=== PATIENT | male | born 1940 | race American Indian/Alaskan Native ===

== ENCOUNTER 2018-12-20 17:56 | Inpatient (IN) | payer MEDICARE ==
--- NOTE | 2018-12-20 18:34 | Emergency Department Report ---
ED Syncope HPI - General Stated Complaint: WEAKNESS/DIZZY Time Seen by Provider: 12/20/18 18:14 Source: patient, family Exam Limitations: no limitations - History of Present Illness Initial Comments: 78-year-old male with a past medical history of anemia and required blood transfusion recently, hypertension, chronic right leg ulcer currently with wound care on Friday and Friday, and diet controlled diabetes presents to the hospital with complaints no deficit and syncopal episode. Patient apparently had just finished eating. He was talking to his daughter who was at the bedside. She states that his left side of his face looked likely drooped, patient was unable to speak, and he became unresponsive for about 1 minute. No generalized shaking or seizure activity reported. Patient was diaphoretic during episode. Patient became responsive after 1 minute. He is currently at his baseline. He denies headache, chest pain, shortness of breath, abdominal pain, nausea, vomiting, melena, or hematochezia. Patient recently had 3 units of blood transfused at [facility] on Dec 15 after having outpatient labs showing anemia. He is currently on iron tablets times a day and addition to his other medication. Glucose in 165. Pt takes an asa 81mg daily and had a dose today - Related Data Allergies/Adverse Reactions: Allergies No Known Allergies Allergy (Unverified 12/20/18 19:22) Home Medications: Ambulatory Orders Ferrous Sulfate 324 MG 65 mg PO TID 12/20/18 Finasteride [Proscar] 5 mg PO DAILY 12/20/18 Metoprolol SUCCINATE ER TAB 50 mg PO DAILY 12/20/18 amLODIPine [Norvasc] 10 mg PO DAILY 12/20/18 ED Review of Systems ROS: Stated complaint: WEAKNESS/DIZZY Other details as noted in HPI Comment: All other systems reviewed and negative ED Past Medical Hx - Past Medical History Hx Hypertension: Yes Hx Diabetes: Yes (diet controlled) Additional medical history: Anemia, chronic right leg - Medications Home Medications: Home Medications Medication Instructions Recorded Confirmed Last Taken Type Ferrous Sulfate 324 MG 65 mg PO TID 12/20/18 12/20/18 12/20/18 10:00 History Finasteride [Proscar] 5 mg PO DAILY 12/20/18 12/20/18 12/20/18 10:00 History Metoprolol SUCCINATE ER TAB 50 mg PO DAILY 12/20/18 12/20/18 12/19/18 History amLODIPine [Norvasc] 10 mg PO DAILY 12/20/18 12/20/18 12/20/18 10:00 History ED Physical Exam - General Limitations: No Limitations - Other Other exam information: General: No acute distress Head: Atraumatic Eyes: Normal appearance, Pupils equal and reactive to light, extraocular movements intact ENT: Normal oropharynx Neck: Normal appearance, no posterior or midline tenderness, no meningismus Chest: Clear to auscultation bilaterally, no wheezes, rales, or crackles CV: Regular rate and rhythm, systolic murmur Abdomen: soft, nontender, nondistended, no rebound or guarding rectal: guaic neg brown stool Back: Nontender Extremity: Right foot and lower leg is wrapped due to ulcer. daughter reports it has been improving with treatment. No calf tenderness or swelling on the left leg Neuro: Alert and oriented 3, speech clear, no gross motor or sensory deficit Skin: No rash, redness, warmth ED Course Vital Signs 12/20/18 12/20/18 12/20/18 18:14 18:15 18:17 Temperature 99.9 F H Pulse Rate 63 56 L Respiratory 18 Rate Blood Pressure 194/85 Blood Pressure [Left] O2 Sat by Pulse 99 98 Oximetry 12/20/18 12/20/18 12/20/18 18:35 18:39 18:45 Temperature Pulse Rate 59 L 63 57 L Respiratory 15 18 19 Rate Blood Pressure 203/83 Blood Pressure 181/79 180/77 [Left] O2 Sat by Pulse 100 100 100 Oximetry 12/20/18 12/20/18 19:01 19:31 Temperature Pulse Rate 58 L 54 L Respiratory 19 16 Rate Blood Pressure 194/85 181/79 Blood Pressure [Left] O2 Sat by Pulse 98 100 Oximetry - Consultations Consultation #1: 12/20/18 20:[address] parker cardiology, aggrees with asa, no heparin/lovenox a this time, consult ordered ED Medical Decision Making - Lab Data Result diagrams: 12/20/18 19:23 12/20/18 18:30 Lab Results 12/20/18 12/20/18 12/20/18 Range/Units 18:25 18:30 19:23 WBC 10.4 (4.5-11.0) K/mm3 RBC 3.31 L (3.65-5.03) M/mm3 Hgb 9.8 L (11.8-15.2) gm/dl Hct 29.7 L (35.5-45.6) % MCV 90 (84-94) fl MCH 30 (28-32) pg MCHC 33 (32-34) % RDW 19.5 H (13.2-15.2) % Plt Count 329 (140-440) K/mm3 Lymph % (Auto) Cooperative Education Coordinator [place] % (Auto) Cooperative Education Coordinator Eos % (Auto) Cooperative Education Coordinator Baso % (Auto) Cooperative Education Coordinator Lymph # Cooperative Education Coordinator [place] # Cooperative Education Coordinator Eos # Cooperative Education Coordinator Baso # Cooperative Education Coordinator Seg Neutrophils % Cooperative Education Coordinator Seg Neutrophils # Cooperative Education Coordinator PT (12.2-14.9) Sec. INR (0.87-1.13) APTT (24.2-36.6) Sec. Thrombin Time (15.1-19.6) Sec. Sodium 136 L (137-145) mmol/L Potassium 4.5 (3.6-5.0) mmol/L Chloride 99.1 (98-107) mmol/L Carbon Dioxide 22 (22-30) mmol/L Anion Gap 19 mmol/L BUN 30 H (9-20) mg/dL Creatinine 1.0 (0.8-1.5) mg/dL Estimated GFR > 60 ml/min BUN/Creatinine Ratio 30 % Glucose 154 H (75-100) mg/dL POC Glucose 164 H (70-105) Calcium 9.4 (8.4-10.2) mg/dL Total Bilirubin 1.00 (0.1-1.2) mg/dL AST 76 H (5-40) units/L ALT 66 H (7-56) units/L Alkaline Phosphatase 105 (35-129) units/L Total Creatine Kinase 1087 H (55-170) units/L CK-MB (CK-2) 20.4 H (0.0-4.0) ng/mL CK-MB (CK-2) Rel Index 1.8 (0-4) Troponin T 0.116 H* (0.00-0.029) ng/mL Total Protein 7.5 (6.3-8.2) g/dL Albumin 3.8 L (3.9-5) g/dL Albumin/Globulin Ratio 1.0 % Triglycerides 103 (2-149) mg/dL Cholesterol 141 (50-199) mg/dL LDL Cholesterol Direct 78 (50-130) mg/dL HDL Cholesterol 62 H (40-59) mg/dL Cholesterol/HDL Ratio 2.27 % 12/20/ Range/Units 19:23 WBC (4.5-11.0) K/mm3 RBC (3.65-5.03) M/mm3 Hgb (11.8-15.2) gm/dl Hct (35.5-45.6) % MCV (84-94) fl MCH (28-32) pg MCHC (32-34) % RDW (13.2-15.2) % Plt Count (140-440) K/mm3 Lymph % (Auto) [place] % (Auto) Eos % (Auto) Baso % (Auto) Lymph # [place] # Eos # Baso # Seg Neutrophils % Seg Neutrophils # PT 13.7 (12.2-14.9) Sec. INR 1.08 (0.87-1.13) APTT 27.7 (24.2-36.6) Sec. Thrombin Time 16.5 (15.1-19.6) Sec. Sodium (137-145) mmol/L Potassium (3.6-5.0) mmol/L Chloride (98-107) mmol/L Carbon Dioxide (22-30) mmol/L Anion Gap mmol/L BUN (9-20) mg/dL Creatinine (0.8-1.5) mg/dL Estimated GFR ml/min BUN/Creatinine Ratio % Glucose (75-100) mg/dL POC Glucose (70-105) Calcium (8.4-10.2) mg/dL Total Bilirubin (0.1-1.2) mg/dL AST (5-40) units/L ALT (7-56) units/L Alkaline Phosphatase (35-129) units/L Total Creatine Kinase (55-170) units/L CK-MB (CK-2) (0.0-4.0) ng/mL CK-MB (CK-2) Rel Index (0-4) Troponin T (0.00-0.029) ng/mL Total Protein (6.3-8.2) g/dL Albumin (3.9-5) g/dL Albumin/Globulin Ratio % Triglycerides (2-149) mg/dL Cholesterol (50-199) mg/dL LDL Cholesterol Direct (50-130) mg/dL HDL Cholesterol (40-59) mg/dL Cholesterol/HDL Ratio % - EKG Data -: EKG Interpreted by Ok EKG shows normal: sinus rhythm, axis (qrs -28), QRS complexes (qrsd 96), ST-T waves Rate: normal (60) - EKG Data When compared to previous EKG there are: no significant change - Radiology Data Radiology results: report reviewed ADDENDUM Addendum: Please note there is a typographic error in the impression. IMPRESSION: No acute infarction Signer Name: Velma Montgomery MD Signed: 12/20/2018 7:48 PM Workstation Name: [id number] Addendum Transcribed By: FALLON Addendum Dictated By: Velma Tay MD Addendum Electronically Authenticated By: Velma Tay MD Addendum Signed Date/Time: 12/20/181947 DD/ TD/TT: / Nonenhanced CT scan of the brain: INDICATION: Stroke symptoms. TECHNIQUE: Routine CT head without contrast. Sagittal and coronal reformatted images were obtained. All CT scans at this location are performed using CT dose reduction for ALARA by means of automated exposure control. COMPARISON: None. FINDINGS: BRAIN / INTRACRANIAL CONTENTS: No acute hemorrhage, mass effect, midline shift, hydrocephalus, or acute, large territorial infarct. Brainstem is normal. Volume loss is seen in the cerebellar vermis. In the cerebral hemispheres, periventricular low density areas are seen probably due to microvascular faint angiopathy. In addition, low density white matter lesions are seen which are also chronic. Subtle ischemic changes are seen in the right corpus stratum extending into right putamen. CRANIOCERVICAL JUNCTION: No significant abnormality. ORBITS: No significant abnormality of visualized orbits. SINUSES / MASTOIDS: No significant abnormality of the visualized paranasal sinuses or mastoid air cells. ADDITIONAL FINDINGS: None. IMPRESSION: . Infarction CHEST 1 VIEW 12/20/2018 7:47 PM INDICATION / CLINICAL INFORMATION: syncope. COMPARISON: None available. FINDINGS: SUPPORT DEVICES: None. HEART / MEDIASTINUM: The cardiac silhouette is at the upper limits of normal size. LUNGS / PLEURA: No significant pulmonary or pleural abnormality. No pneumothorax. ADDITIONAL FINDINGS: No significant additional findings. IMPRESSION: 1. No acute abnormality of the chest. 2. Nonspecific prominence of the cardiac silhouette. - Medical Decision Making pt with syncopal episode ? transient facial droop and aphasia preceding syncopal episode neuro consulted (see note) mild trop elevation, repeat pendgin, no chest pain or stemi, asa given after neg guaic test, cardiology consulted hospitalist to admit - Differential Diagnosis NH, arrhythmia, anemia, seizure, CVA Critical Care Time: No Critical care attestation.: If time is entered above; I have spent that time in minutes in the direct care of this critically ill patient, excluding procedure time. ED Disposition Clinical Impression: Syncope, Transient neurologic deficit, Elevated troponin, History of iron deficiency anemia, HTN (hypertension) Disposition: OP ADMIT IP TO THIS HOSP Is pt being admited?: Yes Does the pt Need Aspirin: Yes Condition: Stable Time of Disposition: 21:14 (Dr Sylvester/hosp) - Assessment Assessment Interval: Baseline - Level of Consciousness 1a. Level of Consciousness: alert/keenly responsive - LOC Questions 1b. LOC Questions: answers both correctly - LOC Command 1c. LOC Commands: performs tasks correctly - Best Gaze 2. Best Gaze: normal - Visual 3. Visual: no visual loss - Facial Palsy 4. Facial Palsy: normal symmetrical movement - Motor Arm 5a. Motor Arm Left: no drift 5b. Motor Arm Right: no drift - Motor Leg 6a. Motor Leg Left: no drift 6b. Motor Leg Right: no drift - Limb Ataxia 7. Limb Ataxia: absent - Sensory 8. Sensory: normal - Best Language 9. Best Language: no aphasia - Dysarthria 10. Dysarthria: normal - Extinction and Inattention 11. Extinction/Inattention: no abnormality - Scoring Total Score: 0 Stroke Severity: No Stroke Symptoms
--- NOTE | 2018-12-20 19:02 | Consultation ---
History of Present Illness Consult date: 12/20/18 - Assessment Assessment Interval: Baseline - Level of Consciousness 1a. Level of Consciousness: alert/keenly responsive - LOC Questions 1b. LOC Questions: answers both correctly - LOC Command 1c. LOC Commands: performs tasks correctly - Best Gaze 2. Best Gaze: normal - Visual 3. Visual: no visual loss - Facial Palsy 4. Facial Palsy: normal symmetrical movement - Motor Arm 5a. Motor Arm Left: no drift 5b. Motor Arm Right: no drift - Motor Leg 6a. Motor Leg Left: no drift 6b. Motor Leg Right: no drift - Limb Ataxia 7. Limb Ataxia: absent - Sensory 8. Sensory: normal - Best Language 9. Best Language: no aphasia - Dysarthria 10. Dysarthria: normal - Extinction and Inattention 11. Extinction/Inattention: no abnormality - Scoring Total Score: 0 Stroke Severity: No Stroke Symptoms Results - Laboratory Findings Abnormal Lab Findings: Abnormal Labs 12/20/18 18:25 POC Glucose 164 H Assessment and Plan Date of Service 12/20/2018 [facility] Consult Services Comments: Last time known well: _ 16:45 Door time: _1811 [facility] contacted: _1842 [facility] at bedside: _1846 NIHSS assessment time: _1852 consult end time: _1901 Impression: syncope (etiology unclear, suspect bradycardia, anemia, ? unclear if he was hypoglycemia ) Does (not) meet Large Vessel Occlusion (LVO) screening criteria (Aphasia, Neglect, Gaze deviation/preference, Dense hemiparesis, or Visual field deficits on exam), therefore advanced imaging (CTA head and neck and CTP brain) is (not) indicated. Differential Diagnosis: 1. Cardioembolic stroke 2. Small vessel disease/ lacune 3. Thromboembolic, [id number] mechanism 4. Hypercoagulable state-related infarct 5. Transient ischemic attack 6. Thrombotic mechanism, large artery disease tPA decision and other recommendations: _ Patient is not a tPA candidate Head CT did not show any acute hemorrhage. reviewed report (if available) and images Reason: _ NIHSS 0 Patient is not a BRIGITTE candidate: _ Thrombectomy not considered since large proximal intracranial vessel occlusion is not suspected. Recommendations dysphagia screen ASA if no contraindications head of bed flat IV fluids NS telemetry Stroke work up with: noncontrast brain MRI, head and neck MRA (or CTA), 2D ECHO, lipid panel, HbA1c (Goal LDL<70, HbA1c<7) Orthostatic vital signs inpatient neurology consultation Inpatient stroke evaluation as per Neurology/ Internal Medicine Discussed with ED physician/medical staff Please contact [facility] Navigator to reach me if further questions/concerns arise. Reason for Stroke Alert and History of Present Illness: _ Patient is a(n) 78 years old male, with history of hypertension, anemia, Diabetes Mellitus last known well: 16:45 Had a period of decreased responsiveness, episode lasted about a minute, during the episode he was generally weak and was unable to speak. He was diaphoretic, EMS recorded Blood Pressure 130/70, HR 48. Blood glucose at the scene is unknown Review of Systems: Constitutional: Negative except as documented in history of present illness. Eye: Negative except as documented in history of present illness. Ear/Nose/Mouth/Throat: Negative except as documented in history of present illness. Respiratory: Negative except as documented in history of present illness. Cardiovascular: Negative except as documented in history of present illness. Gastrointestinal: Negative except as documented in history of present illness. Musculoskeletal: Negative except as documented in history of present illness. Neurologic: Negative except as documented in history of present illness. Examination: NIHSS Details documented in the note ___ 0 Medical Decision Making: - Extensive number of diagnosis or management options are considered above. - Extensive amount of complex data reviewed. - High risk of complication and/or morbidity or mortality are associated with differential diagnostic considerations above. - There may be Uncertain outcome and increased probability of prolonged functional impairment or high probability of severe prolonged functional impairment associated with some of these differential diagnoses. Medical Data Reviewed: 1.Data reviewed include clinical labs, radiology, Medical Tests; 2.Tests results discussed w/performing or interpreting physician; 3.Obtaining/reviewing old medical records; 4.Obtaining case history from another source; 5.Independent review of image, tracing or specimen. When possible Patient/family were informed the Neurology Consult would happen via TeleHealth consult by way of interactive audio and video telecommunications and consented to receiving care in this manner. Case discussed with the Medical staff. Critical Care notation: I was called to see this critical patient emergently. I personally evaluated this critical patient for acute stroke evaluation and determining their eligibility for IV Alteplase and interventional therapies. I have spent approximately _15_ minutes with the patient, including time at bedside, time discussing the case with other physicians, reviewing plan of care, and time independently reviewing the records and scans.
--- NOTE | 2018-12-20 19:09 | Cat Scan Report ---
Nonenhanced CT scan of the brain: INDICATION: Stroke symptoms. TECHNIQUE: Routine CT head without contrast. Sagittal and coronal reformatted images were obtained. A ll CT scans at this location are performed using CT dose reduction for ALARA by means of automated ex posure control. COMPARISON: None. FINDINGS: BRAIN / INTRACRANIAL CONTENTS: No acute hemorrhage, mass effect, midline shift, hydrocephalus, or acu te, large territorial infarct. Brainstem is normal. Volume loss is seen in the cerebellar vermis. In the cerebral hemispheres, periventricular low density areas are seen probably due to microvascular fa int angiopathy. In addition, low density white matter lesions are seen which are also chronic. Subtle ischemic changes are seen in the right corpus stratum extending into right putamen. CRANIOCERVICAL JUNCTION: No significant abnormality. ORBITS: No significant abnormality of visualized orbits. SINUSES / MASTOIDS: No significant abnormality of the visualized paranasal sinuses or mastoid air cherelle ls. ADDITIONAL FINDINGS: None. IMPRESSION: . Infarction Signer Name: Velma Montgomery MD Signed: 12/20/2018 7:05 PM Workstation Name: [id number]
[2018-12-20 19:25] LABS: Alanine Aminotransferase 66 units/L (7-56); Albumin 3.8 g/dL (3.9-5); BUN/Creatinine Ratio 30; Blood Urea Nitrogen 30 mg/dL (9-20); Calcium 9.4 mg/dL (8.4-10.2); Creatine Kinase MB 20.4 ng/mL (0.0-4.0); Hemolysis Index 27
[2018-12-20 19:48] LABS: INR 1.08 (0.87-1.13); Partial Thromboplastin Time 27.7 Sec. (24.2-36.6)
[2018-12-20 20:06] LABS: Thrombin Time 16.5 Sec. (15.1-19.6)
--- NOTE | 2018-12-20 20:06 | XRay Report ---
CHEST 1 VIEW 12/20/2018 7:47 PM INDICATION / CLINICAL INFORMATION: syncope. COMPARISON: None available. FINDINGS: SUPPORT DEVICES: None. HEART / MEDIASTINUM: The cardiac silhouette is at the upper limits of normal size. LUNGS / PLEURA: No significant pulmonary or pleural abnormality. No pneumothorax. ADDITIONAL FINDINGS: No significant additional findings. IMPRESSION: 1. No acute abnormality of the chest. 2. Nonspecific prominence of the cardiac silhouette. Signer Name: Garrison Lofton MD Signed: 12/20/2018 8:02 PM Workstation Name: [id number]
[2018-12-20 20:17] LABS: Chol/HDL Ratio 2.27 %; HDL Cholesterol 62 mg/dL (40-59); LDL Cholesterol,Direct 78 mg/dL (50-130)
[2018-12-20 20:31] LABS: Hematocrit 29.7 % (35.5-45.6); Hemoglobin 9.8 gm/dl (11.8-15.2); Mean Corpuscular HGB Conc 33 % (32-34); Mean Corpuscular Volume 90 fl (84-94); Platelet Count 329 K/mm3 (140-440); Red Blood Count 3.31 M/mm3 (3.65-5.03); Red Cell Distribution Width 19.5 % (13.2-15.2)
[2018-12-20] MEDS ORDERED: NACL 0.9% 1000 ML 1,000 ML IV ONE (21:22)
--- NOTE | 2018-12-20 22:14 | History and Physical Report ---
History of Present Illness Date of examination: 12/20/18 History of present illness: 78-year-old man at a history of hypertension, diabetes, BPH, anemia was brought to the emergency room for evaluation. Family at bedside state that after he had finished eating the right side of his face twisted and he slumped over, there was no loss of consciousness. The symptoms lasted for 1 minute after which the patient was brought to his baseline. s/p transfusion at [facility] six days ago for anemia, unclear why he was transfused. He has chronic lower extremity ulcer that has been after by the wound care nurse beth Of Systems: Constitutional: no weight loss, fever, chills Ears, eyes, nose, mouth and throat: no nasal congestion, no nasal discharge, no sinus pressure, blurry vision, diplopia Neck: No neck pain or rigidity. Cardiovascular: No palpitations, chest pain Respiratory: No shortness of breath, cough Gastrointestinal: No hematochezia, abdominal pain Genitourinary : no dysuria, frequency , hematuria Musculoskeletal: no muscle ache , joint pain Integumentary: no rash, no pruritis Neurological: no parathesias, focal weakness Endocrine: no cold or heat intolerance, no polyuria or polydipsia Hematologic/Lymphatic: no easy bruising, no easy bleeding, no gland swelling Allergic/Immunologic: no urticaria, no angioedema. PAST MEDICAL HISTORY: hypertension, diabetes, BPH, anemia PAST SURGICAL HISTORY:none FAMILY HISTORY:hypertension, diabetes SOCIAL HISTORY: Denies tobacco, drugs, alcohol Medications and Allergies Allergies Allergy/AdvReac Type Severity Reaction Status Date / Time No Known Allergies Allergy Unverified 12/20/18 19:22 Home Medications Medication Instructions Recorded Confirmed Last Taken Type Ferrous Sulfate 324 MG 65 mg PO TID 12/20/18 12/20/18 12/20/18 10:00 History Finasteride [Proscar] 5 mg PO DAILY 12/20/18 12/20/18 12/20/18 10:00 History Metoprolol SUCCINATE ER TAB 50 mg PO DAILY 12/20/18 12/20/18 12/19/18 History amLODIPine [Norvasc] 10 mg PO DAILY 12/20/18 12/20/18 12/20/18 10:00 History Active Meds: Active Medications Enoxaparin Sodium (Lovenox) 30 mg SUB-Q QDAY OLIVIER Sodium Chloride (Nacl 0.9% 1000 Ml) 1,000 mls @ 200 mls/hr IV BOLUS ONE Stop: 12/21/18 02:21 Exam - Physical Exam Narrative exam: General Apperance: The patient sitting in bed no acute distress HEENT: Normocephalic, atraumatic. Pupils equally round and reactive to light, extraocular movement intact, and no sclericterus or JVD or thyromegaly or nodule. Neck supple, no carotid bruit, mucous membranes moist, no exudate or erythema Heart: S1-S2, regular is rhythm Lungs: Clear to auscultation bilaterally, breathing comfortable Abdomen: Positive bowel sounds, soft, nontender, nondistended, no organomegaly Extremities: Lower extremity ulcer No edema cyanosis clubbing Skin: no rash, nodule, warm and dry Neuro:CN 2 -12 intact, motor/sensory intact, speech is fluent - Constitutional Vitals: Temp Pulse Resp BP Pulse Ox 99.9 F H 54 L 25 H 156/73 100 12/20/18 18:14 12/20/18 21:31 12/20/18 21:31 12/20/18 21:31 12/20/18 21:31 Results - Labs CBC & Chem 7: 12/21/18 10:34 12/21/18 03:53 Labs: Abnormal lab results 12/20/18 12/20/18 12/20/18 Range/Units 18:25 18:30 19:23 RBC 3.31 L (3.65-5.03) M/mm3 Hgb 9.8 L (11.8-15.2) gm/dl Hct 29.7 L (35.5-45.6) % RDW 19.5 H (13.2-15.2) % Sodium 136 L (137-145) mmol/L BUN 30 H (9-20) mg/dL Glucose 154 H (75-100) mg/dL POC Glucose 164 H (70-105) AST 76 H (5-40) units/L ALT 66 H (7-56) units/L Total Creatine Kinase 1087 H (55-170) units/L CK-MB (CK-2) 20.4 H (0.0-4.0) ng/mL Troponin T 0.116 H* (0.00-0.029) ng/mL Albumin 3.8 L (3.9-5) g/dL HDL Cholesterol 62 H (40-59) mg/dL 12/20/18 Range/Units 21:29 RBC (3.65-5.03) M/mm3 Hgb (11.8-15.2) gm/dl Hct (35.5-45.6) % RDW (13.2-15.2) % Sodium (137-145) mmol/L BUN (9-20) mg/dL Glucose (75-100) mg/dL POC Glucose (70-105) AST (5-40) units/L ALT (7-56) units/L Total Creatine Kinase (55-170) units/L CK-MB (CK-2) (0.0-4.0) ng/mL Troponin T 0.119 H* (0.00-0.029) ng/mL Albumin (3.9-5) g/dL HDL Cholesterol (40-59) mg/dL - Imaging and Cardiology CT Scan - head: report reviewed Assessment and Plan Assessment Near-syncope Brief neurological symptoms UTI Hypertension BPH Diabetes Chronic lower extremity ulcer Plan Admit to medicine Check cardiac enzymes, echo, carotid Doppler Consult cardiology, neurology Start aspirin, continue appropriate outpatient medication Check fingersticks and start insulin sliding scale Start IV Rocephin, follow cultures DVT prophylaxis
[2018-12-20] MEDS: ASPIRIN PO ONE ×2 (22:35→22:39)
[2018-12-20] MEDS: ASPIRIN PO SCH (22:39)
[2018-12-20 22:50] LABS: Bacteria,Urine 1+ /HPF (Negative); Bilirubin,Urine NEG (Negative); Blood,Urine SM (Negative); Color,Urine Yellow (Yellow); Mucus,Urine FEW /HPF; Protein,Urine <15 mg/dL mg/dL (Negative); Urobilinogen,Urine < 2.0 mg/dL (<2.0)
[2018-12-21] MEDS ORDERED: ZOFRAN IV PRN (01:00)
[2018-12-21] MEDS ORDERED: SODIUM CHLORIDE FLUSH SYRINGE 10 ML IV PRN (01:00)
[2018-12-21] MEDS ORDERED: PERCOCET 5/325 PO PRN (01:00)
[2018-12-21] MEDS ORDERED: TYLENOL PO PRN (01:00)
[2018-12-21] MEDS: ROCEPHIN/NS 1 GM/50 ML 1 GM/50 ML BAG IV SCH ×2 (01:15→10:41)
[2018-12-21 04:15] LABS: Basophils # (Auto) 0.1 K/mm3 (0.0-0.1); Basophils % (Auto) 0.6 % (0.0-1.8); Eosinophils % (Auto) 0.4 % (0.0-4.3); Hematocrit 29.7 % (35.5-45.6); Hemoglobin 9.6 gm/dl (11.8-15.2); Lymphocytes # (Auto) 1.5 K/mm3 (1.2-5.4); Lymphocytes % (Auto) 14.5 % (13.4-35.0); Mean Corpuscular HGB Conc 33 % (32-34); Mean Corpuscular Volume 91 fl (84-94); Monocytes # (Auto) 0.6 K/mm3 (0.0-0.8); Monocytes % (Auto) 5.9 % (0.0-7.3); Platelet Count 295 K/mm3 (140-440); Red Blood Count 3.26 M/mm3 (3.65-5.03); Red Cell Distribution Width 19.7 % (13.2-15.2)
[2018-12-21 04:25] LABS: BUN/Creatinine Ratio 36; Blood Urea Nitrogen 29 mg/dL (9-20); Calcium 8.9 mg/dL (8.4-10.2); Hemolysis Index 31
[2018-12-21 04:29] LABS: Creatine Kinase MB 15.7 ng/mL (0.0-4.0)
[2018-12-21 08:06] LABS: Creatine Kinase MB 14.6 ng/mL (0.0-4.0)
[2018-12-21] MEDS ORDERED: HEPARIN 10,000 UNITS/10 ML IV ONE (08:33)
[2018-12-21] MEDS ORDERED: HEPARIN/ 0.45% NACL-25,000 UNIT/500 ML 25,000 UNIT/500 ML BAG IV SCH (09:00)
--- NOTE | 2018-12-21 09:40 | Vascular Lab Report ---
"DUPLEX DOPPLER ULTRASOUND CAROTID, BILATERAL INDICATION: near syncope. FINDINGS: RIGHT CAROTID: Mild plaque Right CCA velocity: 82 cm/sec. Right ICA peak systolic velocity: 50 cm/sec. ICA/CCA PSV Ratio: 0.6. Right Vertebral Artery: Antegrade flow. LEFT CAROTID: Mild plaque Left CCA velocity: 96 cm/sec. Left ICA peak systolic velocity: 118 cm/sec. ICA/CCA PSV Ratio: 1.2. Left Vertebral Artery: Antegrade flow. IMPRESSION: 1. Right Internal Carotid Artery: Less than 50% diameter stenosis. 2. Left Internal Carotid Artery: Less than 50% diameter stenosis. Velocity criteria are extrapolated from diameter data as defined by the Society of Radiologists in Ul trasound Consensus Conference, Radiology 2003; 229;340-346. Degree of Stenosis (%) || ICA PSV (cm/sec) || Plaque estimate (%) || ICA/CCA PSV Ratio Normal <125 None <2.0 <50 <125 <50 <2.0 50-69 125-230 50 2.0-4.0 70 but less than 100 >230 50 >4.0 Near occlusion High, low, or none visible variable Total occlusion None visible; no lumen N/A Signer Name: Arthur Moran MD Signed: 12/21/2018 9:36 AM Workstation Name: [id number]
[2018-12-21] MEDS ORDERED: LOVENOX SUB-Q SCH (10:00)
[2018-12-21] MEDS: PROSCAR PO SCH (10:41)
[2018-12-21] MEDS: SODIUM CHLORIDE FLUSH SYRINGE 10 ML IV SCH ×2 (10:41→21:39)
[2018-12-21 11:21] LABS: Hematocrit 29.5 % (35.5-45.6); Hemoglobin 9.8 gm/dl (11.8-15.2)
[2018-12-21 11:35] LABS: INR 1.13 (0.87-1.13)
[2018-12-21 11:37] LABS: Partial Thromboplastin Time 33.2 Sec. (24.2-36.6)
[2018-12-21 11:40] LABS: Albumin 3.5 g/dL (3.9-5); Bilirubin,Direct 0.3 mg/dL (0-0.2)
--- NOTE | 2018-12-21 14:17 | Consultation ---
History of Present Illness Consult date: 12/21/18 Consult reason: syncope History of present illness: The patient is a 78-year-old man admitted with syncope. He states that he had j t finished dinner at home, when he felt lightheaded, but did not completely lose consciousness and was aware of the patient placement coordinator when they came to take him to the hospital. There was no chest pain, no palpitations and no unusual shortness of breath. On presentation to the hospital, there were multiple laboratory abnormalities. There was anemia with a hematocrit of 29, a total CPK of 1087, consistent with rhabdomyolysis, and mild troponin elevation of 0.11, unchanged on serial measurements. Further history obtained from the patient states that he was hospitalized at [facility] just 2 weeks ago, for anemia which required multiple blood transfusions. He otherwise denies any prior cardiac history, and it's uncertain if there were any cardiac studies done during his admission to [facility]. Comorbidities include chronic hypertension. ECG is normal sinus rhythm, left axis deviation, left ventricular hypertrophy by for discharge criteria, no acute ST or T wave hemoptysis. Past History Past Medical History: anemia, hypertension Medications and Allergies Allergies Allergy/AdvReac Type Severity Reaction Status Date / Time No Known Allergies Allergy Unverified 12/20/18 19:22 Home Medications Medication Instructions Recorded Confirmed Last Taken Type Ferrous Sulfate 324 MG 65 mg PO TID 12/20/18 12/20/18 12/20/18 10:00 History Finasteride [Proscar] 5 mg PO DAILY 12/20/18 12/20/18 12/20/18 10:00 History Metoprolol SUCCINATE ER TAB 50 mg PO DAILY 12/20/18 12/20/18 12/19/18 History amLODIPine [Norvasc] 10 mg PO DAILY 12/20/18 12/20/18 12/20/18 10:00 History Active Meds: Active Medications Acetaminophen (Tylenol) 650 mg PO Q4H PRN PRN Reason: Pain MILD(1-3)/Fever >100.5/GEORGE Aspirin (Aspirin) 325 mg PO QDAY [facility] Last Admin: 12/20/18 22:39 Dose: 325 mg Documented by: Atorvastatin Calcium (Lipitor) 40 mg PO QHS [facility] Finasteride (Proscar) 5 mg PO DAILY [facility] Last Admin: 12/21/18 10:41 Dose: 5 mg Documented by: Ceftriaxone Sodium (Rocephin/Ns 1 Gm/50 Ml) 1 gm in 50 mls @ 100 mls/hr IV Q24HR [facility]; Protocol Last Admin: 12/21/18 10:41 Dose: 100 mls/hr Documented by: Ondansetron HCl (Zofran) 4 mg IV Q8H PRN PRN Reason: Nausea And Vomiting Oxycodone/Acetaminophen (Percocet 5/325) 1 tab PO Q6H PRN PRN Reason: Pain, Moderate (4-6) Sodium Chloride (Sodium Chloride Flush Syringe 10 Ml) 10 ml IV BID [facility] Last Admin: 12/21/18 10:41 Dose: 10 ml Documented by: Sodium Chloride (Sodium Chloride Flush Syringe 10 Ml) 10 ml IV PRN PRN PRN Reason: LINE FLUSH Review of Systems Cardiovascular: syncope, lightheadedness, no chest pain, no orthopnea, no palpitations, no rapid/irregular heart beat, no edema, no shortness of breath Physical Examination Vital Signs Temp Pulse Resp BP Pulse Ox 99.9 F H 63 18 194/85 99 12/20/18 18:14 12/20/18 18:14 12/20/18 18:14 12/20/18 18:14 12/20/18 18:14 General appearance: no acute distress HEENT: Positive: PERRL Neck: Positive: neck supple Cardiac: Positive: Reg Rate and Rhythm Lungs: Positive: Decreased Breath Sounds Neuro: Positive: Grossly Intact Abdomen: Positive: Soft Male genitourinary: Positive: deferred Skin: Positive: Clear Extremities: Absent: edema Results 12/21/18 10:34 12/21/18 03:53 Cardiac Enzymes 12/20/18 12/21/18 12/21/18 Range/Units 18:30 03:53 06:32 AST 76 H (5-40) units/L CK-MB (CK-2) 20.4 H 15.7 H 14.6 H (0.0-4.0) ng/mL 12/21/18 Range/Units 10:34 AST 64 H (5-40) units/L CK-MB (CK-2) (0.0-4.0) ng/mL Coagulation 12/20/18 12/21/18 Range/Units 19:23 10:34 PT 13.7 14.2 (12.2-14.9) Sec. INR 1.08 1.13 (0.87-1.13) APTT 27.7 33.2 (24.2-36.6) Sec. Lipids 12/20/18 Range/Units 18:30 Triglycerides 103 (2-149) mg/dL Cholesterol 141 (50-199) mg/dL HDL Cholesterol 62 H (40-59) mg/dL Cholesterol/HDL Ratio 2.27 % CBC 12/20/18 12/21/18 12/21/18 Range/Units 19:23 03:53 10:34 WBC 10.4 10.4 (4.5-11.0) K/mm3 RBC 3.31 L 3.26 L (3.65-5.03) M/mm3 Hgb 9.8 L 9.6 L 9.8 L (11.8-15.2) gm/dl Hct 29.7 L 29.7 L 29.5 L (35.5-45.6) % Plt Count 329 295 317 (140-440) K/mm3 Lymph # Rn Utilization Management Um 1.5 [place] # Rn Utilization Management Um 0.6 Eos # Rn Utilization Management Um 0.0 Baso # Rn Utilization Management Um 0.1 Comprehensive Metabolic Panel 12/20/18 12/21/18 12/21/18 Range/Units 18:30 03:53 10:34 Sodium 136 L 134 L (137-145) mmol/L Potassium 4.5 4.4 (3.6-5.0) mmol/L Chloride 99.1 99.2 (98-107) mmol/L Carbon Dioxide 22 23 (22-30) mmol/L BUN 30 H 29 H (9-20) mg/dL Creatinine 1.0 0.8 (0.8-1.5) mg/dL Glucose 154 H 107 H (75-100) mg/dL Calcium 9.4 8.9 (8.4-10.2) mg/dL Direct Bilirubin 0.3 H (0-0.2) mg/dL Indirect Bilirubin 1.1 mg/dL AST 76 H 64 H (5-40) units/L ALT 66 H 57 H (7-56) units/L Alkaline Phosphatase 105 95 (35-129) units/L Total Protein 7.5 7.6 (6.3-8.2) g/dL Albumin 3.8 L 3.5 L (3.9-5) g/dL EKG interpretations - Telemetry EKG Rhythm: Sinus Rhythm Assessment and Plan - Patient Problems (1) Syncope Current Visit: Yes Status: Acute Plan to address problem: 78-year-old man with a history of anemia and hypertension, admitted with a near syncopal episode. EKG is unremarkable. CPK is markedly elevated with an appearance of rhabdomyolysis. There is a mild troponin elevation of uncertain significance. Echocardiogram reports left ventricular ejection fraction of 45%. We we will request recent medical records from [facility]. We'll hold on anticoagulation therapy due to recent history of anemia and bleeding. Further cardiac evaluation and management will depend on clinical course.
--- NOTE | 2018-12-21 17:09 | Consultation ---
History of Present Illness Consult date: 12/21/18 Reason for Consult: Syncope Chief complaint: pre-syncope History of present illness: Patient is a 78 y/o man w/ a h/o HTN, pre-diabetes, anemia. Patient was eating with his daughter yesterday, when he suddenly slumped over. he was unresponsive for about 1 minute, and then fully regained consciousness. He did not lose c ontrol of bowel or bladder during the episode. His daughter noted that there was a slight facial droop on the right side during the event, which later improved. He notes that he was aware during the event, and knew when EMT arrived. Patient was found to have a UTI on admission, as well as elevated troponin. He received a blood transfusion about 2 weeks ago at [facility] for low hemoglobin, however rigo ent does not know what caused the low hemoglobin. Per his daughter, he had another episode of brief loss of consciousness about 4-5 months ago, however she was not with him at the time and does not know all the details. Past History Past Medical History: anemia, hypertension Social history: no significant social history Family history: no significant family history Medications and Allergies Allergies Allergy/AdvReac Type Severity Reaction Status Date / Time No Known Allergies Allergy Unverified 12/20/18 19:22 Home Medications Medication Instructions Recorded Confirmed Last Taken Type Ferrous Sulfate 324 MG 65 mg PO TID 12/20/18 12/20/18 12/20/18 10:00 History Finasteride [Proscar] 5 mg PO DAILY 12/20/18 12/20/18 12/20/18 10:00 History Metoprolol SUCCINATE ER TAB 50 mg PO DAILY 12/20/18 12/20/18 12/19/18 History amLODIPine [Norvasc] 10 mg PO DAILY 12/20/18 12/20/18 12/20/18 10:00 History Active Meds: Active Medications Acetaminophen (Tylenol) 650 mg PO Q4H PRN PRN Reason: Pain MILD(1-3)/Fever >100.5/GEORGE Aspirin (Aspirin) 325 mg PO QDAY [facility] Last Admin: 12/20/18 22:39 Dose: 325 mg Documented by: Atorvastatin Calcium (Lipitor) 40 mg PO QHS [facility] Finasteride (Proscar) 5 mg PO DAILY [facility] Last Admin: 12/21/18 10:41 Dose: 5 mg Documented by: Ceftriaxone Sodium (Rocephin/Ns 1 Gm/50 Ml) 1 gm in 50 mls @ 100 mls/hr IV Q24HR [facility]; Protocol Last Admin: 12/21/18 10:41 Dose: 100 mls/hr Documented by: Ondansetron HCl (Zofran) 4 mg IV Q8H PRN PRN Reason: Nausea And Vomiting Oxycodone/Acetaminophen (Percocet 5/325) 1 tab PO Q6H PRN PRN Reason: Pain, Moderate (4-6) Sodium Chloride (Sodium Chloride Flush Syringe 10 Ml) 10 ml IV BID [facility] Last Admin: 12/21/18 10:41 Dose: 10 ml Documented by: Sodium Chloride (Sodium Chloride Flush Syringe 10 Ml) 10 ml IV PRN PRN PRN Reason: LINE FLUSH Review of Systems All systems: negative Genitourinary Male: urinary frequency Physical Examination - Vital Signs Vital Signs: Vital Signs Temp Pulse Resp BP Pulse Ox 99.9 F H 63 18 194/85 99 12/20/18 18:14 12/20/18 18:14 12/20/18 18:14 12/20/18 18:14 12/20/18 18:14 - Constitutional General appearance: comfortable - EENT EENT: Present: ATNC, PERRL, mucous membranes moist, hearing intact, vision intact - Respiratory Respiratory: Present: lungs clear, normal breath sounds - Cardiovascular Cardiovascular: Present: regular rate, normal S1, normal S2 Extremities: Present: no peripheral edema bilatateraly, no clubbing, cyanosis, no inflammation - Gastrointestinal Gastrointestinal: Present: normoactive bowel sounds, soft, non-tender - Integumentary Integumentary: Present: normal - Neurologic Cranial nerve examination: PERRL, EOMI, VFF, V1/V2/V3 grossly intact, face symmetric, intact shoulder shrug Speech examination: intact Sensorimotor examination: intact Motor examination - right side: 08/30: biceps, triceps, wrist flexion, wrist extension, slitting machine operator, hip flexors, knee extensors, dorsiflexion, toe extension (EHL), plantarflexion Motor examination - left side: 08/30: biceps, triceps, wrist flexion, wrist ext ension, slitting machine operator, hip flexors, knee extensors, dorsiflexion, toe extension (EHL), plantarflexion Detailed sensory examination: intact, light touch Reflexes: 2+: ankle, bicep, knee, tricep Cerebellar examination: other (b/l intact to FTN and HTS) - Musculoskeletal Musculoskeletal: Present: no pain, normal range of motion, other (Rt. LE dressing) - Psychiatric Psychiatric: Present: mood/affect appropriate, cooperative - Level of Consciousness 1a. Level of Consciousness: alert/keenly responsive - LOC Questions 1b. LOC Questions: answers both correctly - LOC Command 1c. LOC Commands: performs tasks correctly - Best Gaze 2. Best Gaze: normal - Visual 3. Visual: no visual loss - Facial Palsy 4. Facial Palsy: normal symmetrical movement - Motor Arm 5a. Motor Arm Left: no drift 5b. Motor Arm Right: no drift - Motor Leg 6a. Motor Leg Left: no drift 6b. Motor Leg Right: no drift - Limb Ataxia 7. Limb Ataxia: absent - Sensory 8. Sensory: normal - Best Language 9. Best Language: no aphasia - Dysarthria 10. Dysarthria: normal - Extinction and Inattention 11. Extinction/Inattention: no abnormality - Scoring Total Score: 0 Stroke Severity: No Stroke Symptoms Results - Laboratory Findings CBC and BMP: 12/21/18 10:34 12/21/18 03:53 Abnormal Lab Findings: Abnormal Labs 12/20/18 12/20/18 12/20/18 18:25 18:30 19:23 RBC 3.31 L Hgb 9.8 L Hct 29.7 L RDW 19.5 H Seg Neutrophils % Seg Neutrophils # Sodium 136 L BUN 30 H Glucose 154 H POC Glucose 164 H Total Bilirubin Direct Bilirubin AST 76 H ALT 66 H Total Creatine Kinase 1087 H CK-MB (CK-2) 20.4 H Troponin T 0.116 H* Albumin 3.8 L HDL Cholesterol 62 H Urine WBC (Auto) 12/20/18 12/20/18 12/21/18 21:29 22:35 00:21 RBC Hgb Hct RDW Seg Neutrophils % Seg Neutrophils # Sodium BUN Glucose POC Glucose Total Bilirubin Direct Bilirubin AST ALT Total Creatine Kinase CK-MB (CK-2) Troponin T 0.119 H* 0.125 H* Albumin HDL Cholesterol Urine WBC (Auto) 10.0 H 12/21/18 12/21/18 12/21/18 03:53 03:53 03:53 RBC 3.26 L Hgb 9.6 L Hct 29.7 L RDW 19.7 H Seg Neutrophils % 78.6 H Seg Neutrophils # 8.2 H Sodium 134 L BUN 29 H Glucose 107 H POC Glucose Total Bilirubin Direct Bilirubin AST ALT Total Creatine Kinase 903 H CK-MB (CK-2) 15.7 H Troponin T 0.131 H* Albumin HDL Cholesterol Urine WBC (Auto) 12/21/18 12/21/18 12/21/18 06:32 10:34 10:34 RBC Hgb 9.8 L Hct 29.5 L RDW Seg Neutrophils % Seg Neutrophils # Sodium BUN Glucose POC Glucose Total Bilirubin 1.40 H Direct Bilirubin 0.3 H AST 64 H ALT 57 H Total Creatine Kinase 851 H CK-MB (CK-2) 14.6 H Troponin T 0.150 H* Albumin 3.5 L HDL Cholesterol Urine WBC (Auto) Assessment and Plan Patient is a 78 y/o man w/ a h/o HTN, pre-diabetes, anemia, who p/w episode described as slumping over for one minute, without loss of consciousness. According to the patient's clinical findings, it is possible that the episode was cardio-genic in nature, as patient has been found to have elevated troponin during this admission. Patient has also been found to have a UTI, and recently required a blood transfusion for low hemoglobin 2 weeks ago, both of which could have contributed to the change in level of consciousness. Plan: 1. Pre-syncope: - Likely cardiogenic in etiology. Continue workup per primary team/cardiology - check MRI - Check EEG - Recommend checking orthostatic vital signs 2. UTI: - continue to treat per primary team 3. Elevated troponin: - continue to investigate/manage per cardiology/primary team Will continue to follow. Frank Yun MD
--- NOTE | 2018-12-21 19:29 | Progress Note ---
Assessment and Plan Assessment and plan: 78-year-old man at a history of hypertension, diabetes, BPH, anemia was brought to the emergency room for evaluation. Family at bedside state that after he had finished eating the right side of his face twisted and he slumped over, there was no loss of consciousness. The symptoms lasted for 1 minute after which the patient was brought to his baseline. He has chronic lower extremity ulcer that has been after by the wound care nurse Near-syncope Brief neurological symptoms UTI Hypertension Anemia With recent transfusion of 3 units of PRBC. Patient unsure as to why the anemia BPH Diabetes Type 2 ND vs Rhabdomylysis Chronic lower extremity ulcer Plan Supportive care Discussed with Cardiology, will await records and hold off on Heparin drip Gentle hydration Check orthostatic MRI/EEG per Neurology Continue abx while awaiting cultures Continue aspirin, considering patient sure it was not a GI bleed, he thinks it may have been due to his heart valve continue appropriate outpatient medication Check fingersticks and start insulin sliding scale Start IV Rocephin, follow cultures DVT prophylaxis Possible discharge in am if stable and no further cardiac or Neurological work up History Interval history: Patient seen and examined, reports improvement of symptoms, wants to know if he can have condom catheter with bag on discharge. Denies any chest pain, nausea, vomiting or diarrhea. REPORTS HX of urinary incontinence Hospitalist Physical - Physical exam Narrative exam: VITAL SIGNS: Reviewed. GENERAL: The patient appears normally developed, Vital signs as documented. HEAD: No signs of head trauma. EYES: Pupils are equal. Extraocular motions intact. EARS: Hearing grossly intact. MOUTH: Oropharynx is normal. NECK: No adenopathy, no JVD. CHEST: Chest with clear breath sounds bilaterally. No wheezes, rales, or rhonchi. CARDIAC: Regular rate and rhythm. S1 and S2, 3 over 5 systolic ejection murmurs, NO gallops, or rubs. VASCULAR: No Edema. Peripheral pulses normal and equal in all extremities. ABDOMEN: Soft, non tender and non distended. No rebound or guarding, and no masses palpated. Bowel Sounds normal. MUSCULOSKELETAL: Good range of motion of all major joints. Extremities without clubbing, cyanosis or edema. NEUROLOGIC EXAM: Alert and oriented x 3 No focal sensory or strength deficits. Speech normal. Follows commands. PSYCHIATRIC: Mood normal. SKIN: detial exam as documented in skin assessment - Constitutional Vitals: Temp Pulse Resp BP Pulse Ox 100.8 F H 55 L 16 115/47 96 12/21/18 18:39 12/21/18 18:39 12/21/18 18:39 12/21/18 18:39 12/21/18 18:39 General appearance: Present: no acute distress Results - Labs CBC & Chem 7: 12/21/18 10:34 12/21/18 03:53 Labs: Laboratory Last Values WBC 10.4 K/mm3 (4.5-11.0) 12/21/18 03:53 RBC 3.26 M/mm3 (3.65-5.03) L 12/21/18 03:53 Hgb 9.8 gm/dl (11.8-15.2) L 12/21/18 10:34 Hct 29.5 % (35.5-45.6) L 12/21/18 10:34 MCV 91 fl (84-94) 12/21/18 03:53 MCH 30 pg (28-32) 12/21/18 03:53 MCHC 33 % (32-34) 12/21/18 03:53 RDW 19.7 % (13.2-15.2) H 12/21/18 03:53 Plt Count 317 K/mm3 (140-440) 12/21/18 10:34 Lymph % (Auto) 14.5 % (13.4-35.0) 12/21/18 03:53 [place] % (Auto) 5.9 % (0.0-7.3) 12/21/18 03:53 Eos % (Auto) 0.4 % (0.0-4.3) 12/21/18 03:53 Baso % (Auto) 0.6 % (0.0-1.8) 12/21/18 03:53 Lymph # 1.5 K/mm3 (1.2-5.4) 12/21/18 03:53 [place] # 0.6 K/mm3 (0.0-0.8) 12/21/18 03:53 Eos # 0.0 K/mm3 (0.0-0.4) 12/21/18 03:53 Baso # 0.1 K/mm3 (0.0-0.1) 12/21/18 03:53 Seg Neutrophils % 78.6 % (40.0-70.0) H 12/21/18 03:53 Seg Neutrophils # 8.2 K/mm3 (1.8-7.7) H 12/21/18 03:53 PT 14.2 Sec. (12.2-14.9) 12/21/18 10:34 INR 1.13 (0.87-1.13) 12/21/18 10:34 APTT 33.2 Sec. (24.2-36.6) 12/21/18 10:34 16.5 Sec. (15.1-19.6) 12/20/18 19:23 Sodium 134 mmol/L (137-145) L 12/21/18 03:53 Potassium 4.4 mmol/L (3.6-5.0) 12/21/18 03:53 Chloride 99.2 mmol/L (98-107) 12/21/18 03:53 Carbon Dioxide 23 mmol/L (22-30) 12/21/18 03:53 16 mmol/L 12/21/18 03:53 BUN 29 mg/dL (9-20) H 12/21/18 03:53 0.8 mg/dL (0.8-1.5) 12/21/18 03:53 Estimated GFR > 60 ml/min 12/21/18 03:53 36 % 12/21/18 03:53 Glucose 107 mg/dL (75-100) H 12/21/18 03:53 POC Glucose 164 (70-105) H 12/20/18 18:25 Calcium 8.9 mg/dL (8.4-10.2) 12/21/18 03:53 1.40 mg/dL (0.1-1.2) H 12/21/18 10:34 0.3 mg/dL (0-0.2) H 12/21/18 10:34 1.1 mg/dL 12/21/18 10:34 AST 64 units/L (5-40) H 12/21/18 10:34 ALT 57 units/L (7-56) H 12/21/18 10:34 95 units/L (35-129) 12/21/18 10:34 851 units/L (55-170) H 12/21/18 06:32 CK-MB (CK-2) 14.6 ng/mL (0.0-4.0) H 12/21/18 06:32 CK-MB (CK-2) Rel Index 1.7 (0-4) 12/21/18 06:32 0.150 ng/mL (0.00-0.029) H* 12/21/18 06:32 7.6 g/dL (6.3-8.2) 12/21/18 10:34 3.5 g/dL (3.9-5) L 12/21/18 10:34 0.9 % 12/21/18 10:34 Triglycerides 103 mg/dL (2-149) 12/20/18 18:30 Cholesterol 141 mg/dL (50-199) 12/20/18 18:30 78 mg/dL (50-130) 12/20/18 18:30 62 mg/dL (40-59) H 12/20/18 18:30 2.27 % 12/20/18 18:30 Yellow (Yellow) 12/20/18 22:35 Clear (Clear) 12/20/18 22:35 7.0 (5.0-7.0) 12/20/18 22:35 Ur Specific [place] 1.015 (1.003-1.030) 12/20/18 22:35 <15 mg/dl mg/dL (Negative) 12/20/18 22:35 Neg mg/dL (Negative) 12/20/18 22:35 Neg mg/dL (Negative) 12/20/18 22:35 Sm (Negative) 12/20/18 22:35 Pos (Negative) 12/20/18 22:35 Neg (Negative) 12/20/18 22:35 < 2.0 mg/dL (<2.0) 12/20/18 22:35 Ur Leukocyte Esterase Tr (Negative) 12/20/18 22:35 10.0 /HPF (0.0-6.0) H 12/20/18 22:35 2.0 /HPF (0.0-6.0) 12/20/18 22:35 U Epithel Cells (Auto) 1.0 /HPF (0-13.0) 12/20/18 22:35 1+ /HPF (Negative) 12/20/18 22:35 Few /HPF 12/20/18 22:35 Active Medications - Current Medications Current Medications: Generic Name Dose Route Start Last Admin Trade Name Freq PRN Reason Stop Dose Admin Acetaminophen 650 mg 12/21/18 01:00 Tylenol PO Q4H PRN Pain MILD(1-3)/Fever >100.5/GEORGE Aspirin 325 mg 12/21/18 22:14 12/20/18 22:39 Aspirin PO 325 mg QDAY [facility] Administration Atorvastatin Calcium 40 mg 12/21/18 22:00 Lipitor PO QHS [facility] Finasteride 5 mg 12/21/18 10:00 12/21/18 10:41 Proscar PO 5 mg DAILY [facility] Administration Ceftriaxone Sodium 1 gm in 50 mls @ 100 mls/hr 12/21/18 01:04 12/21/18 10:41 Rocephin/Ns 1 Gm/50 Ml IV 100 mls/hr Q24HR [facility] Administration Protocol Ondansetron HCl 4 mg 12/21/18 01:00 Zofran IV Q8H PRN Nausea And Vomiting Oxycodone/Acetaminophen 1 tab 12/21/18 01:00 Percocet 5/325 PO Q6H PRN Pain, Moderate (4-6) Sodium Chloride 10 ml 12/21/18 10:00 12/21/18 10:41 Sodium Chloride Flush Syringe 10 Ml IV 10 ml BID [facility] Administration Sodium Chloride 10 ml 12/21/18 01:00 Sodium Chloride Flush Syringe 10 Ml IV PRN PRN LINE FLUSH Nutrition/Malnutrition Assess - Dietary Evaluation Nutrition/Malnutrition Findings: Nutrition Notes Start: 12/21/18 16:18 Freq: Status: Active Protocol: Document 12/21/18 16:18 (Rec: 12/21/18 16:22 [email or web address]) Nutrition Notes Need for Assessment generated from: side splitter Initial or Follow up Brief Note Current Diagnosis Diabetes,Hypertension Other Pertinent Diagnosis UTI Current Diet Cardiac Labs/Tests BG 107 Pertinent Medications Reviewed Height 5 ft 9 in Weight 154 kg [place] Body Weight (kg) 72.72 BMI 50.1 Subjective/Other Information Screened for new onset DM. NPO in place ealier today. Cardiac diet ordered later today. 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 Pt stated that his DM is well controlled. Burn Absent Trauma Absent Nutrition Intervention Revisit per MD consult or patient Sign Off request: - Attestation Statement I have reviewed and agreed w/ Malnutrition eval & tx plan: Yes
[2018-12-21] MEDS: ASPIRIN PO SCH (21:39)
[2018-12-22 06:13] LABS: Hematocrit 26.3 % (35.5-45.6); Hemoglobin 8.6 gm/dl (11.8-15.2); Mean Corpuscular HGB Conc 33 % (32-34); Mean Corpuscular Volume 90 fl (84-94); Platelet Count 295 K/mm3 (140-440); Red Blood Count 2.91 M/mm3 (3.65-5.03); Red Cell Distribution Width 19.2 % (13.2-15.2)
[2018-12-22 06:32] LABS: Alanine Aminotransferase 45 units/L (7-56); Albumin 3.2 g/dL (3.9-5); BUN/Creatinine Ratio 32; Blood Urea Nitrogen 29 mg/dL (9-20); Calcium 8.6 mg/dL (8.4-10.2); Hemolysis Index 0
[2018-12-22] MEDS: ROCEPHIN/NS 1 GM/50 ML 1 GM/50 ML BAG IV SCH (11:28)
[2018-12-22] MEDS: PROSCAR PO SCH (11:28)
[2018-12-22] MEDS: ASPIRIN PO SCH (11:29)
[2018-12-22] MEDS: SODIUM CHLORIDE FLUSH SYRINGE 10 ML IV SCH ×2 (11:29→21:38)
--- NOTE | 2018-12-22 12:37 | Progress Note ---
Assessment and Plan Patient is a 78 y/o man w/ a h/o HTN, pre-diabetes, anemia, who p/w episode described as slumping over for one minute, without loss of consciousness. According to the patient's clinical findings, it is possible that the episode was cardio-genic in nature, as patient has been found to have elevated troponin during this admission. Patient has also been found to have a UTI, and recently required a blood transfusion for low hemoglobin 2 weeks ago, both of which could have contributed to the change in level of consciousness. Plan: 1. Pre-syncope: - Patient had another syncopeal event about 2-3 months ago in which he lost consciousness, per his daughter, however did not recall any loss of bowel/bladder control. - Likely cardiogenic in etiology. Continue workup per primary team/cardiology - check MRI- Pending - Check EEG- Pending - Discussed with daughter, who felt she would not like to start AED at this point, and we will await for EEG prior to making decision. - Recommend checking orthostatic vital signs 2. UTI: - continue to treat per primary team 3. Elevated troponin: - continue to investigate/manage per cardiology/primary team Will continue to follow. Frank Yun MD Subjective Date of service: 12/22/18 Principal diagnosis: Pre-syncope Interval history: No acute events overnight. Objective - Vital Sign Vital Signs - 12hr 12/22/18 12/22/18 12/22/18 03:06 08:18 11:36 Temperature 97.9 F 98.5 F 97.8 F Pulse Rate 49 L 54 L 65 Respiratory 20 16 14 Rate Blood Pressure 152/68 144/67 129/66 O2 Sat by Pulse 100 100 100 Oximetry - General Apperance Constitutional: comfortable - EENT EENT: ATNC, PERRL, mucous membranes moist, hearing intact, vision intact - Respiratory Respiratory: lungs clear, normal breath sounds - Cardiovascular Cardiovascular: regular rate, normal S1, normal S2 Extremities: other (RLE chronic wound) - Gastrointestinal Gastrointestinal: normoactive bowel sounds, soft, non-tender - Integumentary Integumentary: normal - Neurologic Cranial nerve examination: PERRL, EOMI, VFF, V1/V2/V3 grossly intact, face symmetric, intact shoulder shrug Speech examination: intact Detailed motor examination: full strength in all shae Motor examination - right side: 5/5: biceps, triceps, wrist flexion, wrist extension, gravel inspector, hip flexors, knee extensors, dorsiflexion, toe extension (EHL), plantarflexion Motor examination - left side: 08/30: biceps, triceps, wrist flexion, wrist extension, gravel inspector, hip flexors, knee extensors, dorsiflexion, toe extension (EHL), plantarflexion Detailed sensory examination: intact, light touch Reflexes: 2+: ankle, bicep, knee, tricep Cerebellar examination: other (b/l intact to FTN and HTS) - Musculoskeletal Musculoskeletal: no fluid collection, no pain - Psychiatric Psychiatric: mood/affect appropriate - Laboratory Findings CBC and BMP: 12/22/18 05:28 12/22/18 05:28 Abnormal Lab Findings: Abnormal Labs 12/20/18 12/20/18 12/20/18 18:25 18:30 19:23 RBC 3.31 L Hgb 9.8 L Hct 29.7 L RDW 19.5 H Seg Neutrophils % Seg Neutrophils # Sodium 136 L BUN 30 H Glucose 154 H POC Glucose 164 H Total Bilirubin Direct Bilirubin AST 76 H ALT 66 H Total Creatine Kinase 1087 H CK-MB (CK-2) 20.4 H Troponin T 0.116 H* Albumin 3.8 L HDL Cholesterol 62 H Urine WBC (Auto) 12/20/18 12/20/18 12/21/18 21:29 22:35 00:21 RBC Hgb Hct RDW Seg Neutrophils % Seg Neutrophils # Sodium BUN Glucose POC Glucose Total Bilirubin Direct Bilirubin AST ALT Total Creatine Kinase CK-MB (CK-2) Troponin T 0.119 H* 0.125 H* Albumin HDL Cholesterol Urine WBC (Auto) 10.0 H 12/21/18 12/21/18 12/21/18 03:53 03:53 03:53 RBC 3.26 L Hgb 9.6 L Hct 29.7 L RDW 19.7 H Seg Neutrophils % 78.6 H Seg Neutrophils # 8.2 H Sodium 134 L BUN 29 H Glucose 107 H POC Glucose Total Bilirubin Direct Bilirubin AST ALT Total Creatine Kinase 903 H CK-MB (CK-2) 15.7 H Troponin T 0.131 H* Albumin HDL Cholesterol Urine WBC (Auto) 12/21/18 12/21/18 12/21/18 06:32 10:34 10:34 RBC Hgb 9.8 L Hct 29.5 L RDW Seg Neutrophils % Seg Neutrophils # Sodium BUN Glucose POC Glucose Total Bilirubin 1.40 H Direct Bilirubin 0.3 H AST 64 H ALT 57 H Total Creatine Kinase 851 H CK-MB (CK-2) 14.6 H Troponin T 0.150 H* Albumin 3.5 L HDL Cholesterol Urine WBC (Auto) 12/22/18 12/22/18 05:28 05:28 RBC 2.91 L Hgb 8.6 L Hct 26.3 L RDW 19.2 H Seg Neutrophils % Seg Neutrophils # Sodium 135 L BUN 29 H Glucose 107 H POC Glucose Total Bilirubin Direct Bilirubin AST 45 H ALT Total Creatine Kinase CK-MB (CK-2) Troponin T Albumin 3.2 L HDL Cholesterol Urine WBC (Auto)
--- NOTE | 2018-12-22 15:01 | Progress Note ---
Assessment and Plan Near syncope EKG is unremarkable. Hx of anemia Hypertension Rhabdomyolysis Mild troponin elevation of uncertain significance Echocardiogram reports left ventricular ejection fraction of 45%. Plan: We we will request recent medical records from [place]. Further cardiac evaluation with a stress thallium test will be done tomorrow juan jose velasquez. Subjective Date of service: 12/22/18 Principal diagnosis: Pre-syncope Interval history: No cardiac events overnight. Neurology workup is in progress. Objective Vital Signs Temp Pulse Pulse Pulse Pulse Resp BP 12/22/18 11:36 97.8 F 65 14 129/66 12/22/18 10:00 58 L 12/22/18 08:18 98.5 F 54 L 16 144/67 12/22/18 08:00 54 L 54 L 54 L 18 12/22/18 03:06 97.9 F 49 L 20 152/68 12/21/18 22:52 97.9 F 56 L 20 146/66 12/21/18 20:19 44 L 12/21/18 19:28 99.2 F 44 L 18 118/45 12/21/18 18:49 97.8 F 16 148/83 12/21/18 18:39 100.8 F H 55 L 16 115/47 12/21/18 17:00 98.1 F 43 L 19 12/21/18 16:52 46 L 114/55 BP Pulse Ox 12/22/18 11:36 100 12/22/18 10:00 12/22/18 08:18 100 12/22/18 08:00 100 12/22/18 03:06 100 12/21/18 22:52 96 12/21/18 20:19 12/21/18 19:28 98 12/21/18 18:49 12/21/18 18:39 96 12/21/18 17:00 150/62 12/21/18 16:52 99 - Physical Examination HEENT: Positive: PERRL Neck: Positive: neck supple Neuro: Positive: Grossly Intact Abdomen: Positive: Soft Skin: Positive: Clear Extremities: Absent: edema - Labs and Meds Cardiac Enzymes 12/22/18 Range/Units 05:28 AST 45 H (5-40) units/L CBC 12/22/18 Range/Units 05:28 WBC 8.6 (4.5-11.0) K/mm3 RBC 2.91 L (3.65-5.03) M/mm3 Hgb 8.6 L (11.8-15.2) gm/dl Hct 26.3 L (35.5-45.6) % Plt Count 295 (140-440) K/mm3 Comprehensive Metabolic Panel 12/22/18 Range/Units 05:28 Sodium 135 L (137-145) mmol/L Potassium 4.1 (3.6-5.0) mmol/L Chloride 99.1 (98-107) mmol/L Carbon Dioxide 25 (22-30) mmol/L BUN 29 H (9-20) mg/dL Creatinine 0.9 (0.8-1.5) mg/dL Glucose 107 H (75-100) mg/dL Calcium 8.6 (8.4-10.2) mg/dL AST 45 H (5-40) units/L ALT 45 (7-56) units/L Alkaline Phosphatase 80 (35-129) units/L Total Protein 6.6 (6.3-8.2) g/dL Albumin 3.2 L (3.9-5) g/dL
--- NOTE | 2018-12-22 15:06 | Progress Note ---
Assessment and Plan Assessment and plan: Patient is a 78-year-old man with a history of hypertension, diabetes, BPH and Anemia was brought to the emergency room for right facial droop and near syncope. He has chronic lower extremity ulcer that has been after by the wound care nurse * TTE conclusions: right atrium mildly dilated, trace MR, trace TR, mild , mild AR, LV chamber size normal, mild concentric LVH, global LVSF is mildly decreased, EF 45%, abnormal LV diastolic filling c/w impaired relaxation, right ventricle moderately dilated, RV systolic function normal * Bilateral carotid u/s doppler less than 50% stenosis * pCXR no acute findings * CT head without contrast no acute findings NSTEMI: consulted Cardiology, stress test ordered for tomorrow. Acute combined heart failure, poa: consulted Cardiology, input noted Near-syncope: Neurology consulted, input noted, suspect Cardiogenic Hypertension: low salt diet, treat with antihypertensives Anemia With recent transfusion of 3 units of PRBC. Patient unsure as to why the anemia BPH with prostatitis/UTI: continue IV rocephin Diabetes mellitus type 2; ssi, accucheck, ada Chronic Right lower extremity ulcer: consult Wound care History Interval history: Patient was seen and examined. Follow-up on current diagnosis of Syncope. No overnight events reported to me. Patient denies any chest pain, shortness breath, nausea/vomiting or severe headaches. Imaging, nursing note, chart, labs and old chart reviewed. Discussed with patient. Hospitalist Physical - Physical exam Narrative exam: Gen: WDWN, NAD, Awake, Alert, Orientated HEENT: NCAT, EOMI, PERRL, OP Clear Neck: supple, no adenopathy, no thyromegaly, no JVD CVS/Heart: RRR, normal S1S2, pulses present bilaterally Chest/Lungs: CTA B, Symmetrical chest expansion, good air entry bilaterally GI/Abdomen: soft, NTND, good bowel sounds, no guarding or rebound /Bladder: no suprapubic tenderness, no CVA or paraspinal tenderness Extermity/Skin: no c/c/e, right lower leg ulcer, large venous stasis ulcer, stage 3 at least MSK: FROM x 4 Neuro: CN 2-12 grossly intact, no new focal deficits Psych: calm - Constitutional Vitals: Temp Pulse Resp BP Pulse Ox 97.8 F 65 14 129/66 100 12/22/18 11:36 12/22/18 11:36 12/22/18 11:36 12/22/18 11:36 12/22/18 11:36 General appearance: Present: no acute distress Results - Labs CBC & Chem 7: 12/22/18 05:28 12/22/18 05:28 Labs: Laboratory Last Values WBC 8.6 K/mm3 (4.5-11.0) 12/22/18 05:28 RBC 2.91 M/mm3 (3.65-5.03) L 12/22/18 05:28 Hgb 8.6 gm/dl (11.8-15.2) L 12/22/18 05:28 Hct 26.3 % (35.5-45.6) L 12/22/18 05:28 MCV 90 fl (84-94) 12/22/18 05:28 MCH 30 pg (28-32) 12/22/18 05:28 MCHC 33 % (32-34) 12/22/18 05:28 RDW 19.2 % (13.2-15.2) H 12/22/18 05:28 Plt Count 295 K/mm3 (140-440) 12/22/18 05:28 Lymph % (Auto) 14.5 % (13.4-35.0) 12/21/18 03:53 [place] % (Auto) 5.9 % (0.0-7.3) 12/21/18 03:53 Eos % (Auto) 0.4 % (0.0-4.3) 12/21/18 03:53 Baso % (Auto) 0.6 % (0.0-1.8) 12/21/18 03:53 Lymph # 1.5 K/mm3 (1.2-5.4) 12/21/18 03:53 [place] # 0.6 K/mm3 (0.0-0.8) 12/21/18 03:53 Eos # 0.0 K/mm3 (0.0-0.4) 12/21/18 03:53 Baso # 0.1 K/mm3 (0.0-0.1) 12/21/18 03:53 Seg Neutrophils % 78.6 % (40.0-70.0) H 12/21/18 03:53 Seg Neutrophils # 8.2 K/mm3 (1.8-7.7) H 12/21/18 03:53 PT 14.2 Sec. (12.2-14.9) 12/21/18 10:34 INR 1.13 (0.87-1.13) 12/21/18 10:34 APTT 33.2 Sec. (24.2-36.6) 12/21/18 10:34 16.5 Sec. (15.1-19.6) 12/20/18 19:23 Sodium 135 mmol/L (137-145) L 12/22/18 05:28 Potassium 4.1 mmol/L (3.6-5.0) 12/22/18 05:28 Chloride 99.1 mmol/L (98-107) 12/22/18 05:28 Carbon Dioxide 25 mmol/L (22-30) 12/22/18 05:28 15 mmol/L 12/22/18 05:28 BUN 29 mg/dL (9-20) H 12/22/18 05:28 0.9 mg/dL (0.8-1.5) 12/22/18 05:28 Estimated GFR > 60 ml/min 12/22/18 05:28 32 % 12/22/18 05:28 Glucose 107 mg/dL (75-100) H 12/22/18 05:28 POC Glucose 164 (70-105) H 12/20/18 18:25 Calcium 8.6 mg/dL (8.4-10.2) 12/22/18 05:28 1.10 mg/dL (0.1-1.2) 12/22/18 05:28 0.3 mg/dL (0-0.2) H 12/21/18 10:34 1.1 mg/dL 12/21/18 10:34 AST 45 units/L (5-40) H 12/22/18 05:28 ALT 45 units/L (7-56) 12/22/18 05:28 80 units/L (35-129) 12/22/18 05:28 851 units/L (55-170) H 12/21/18 06:32 CK-MB (CK-2) 14.6 ng/mL (0.0-4.0) H 12/21/18 06:32 CK-MB (CK-2) Rel Index 1.7 (0-4) 12/21/18 06:32 0.150 ng/mL (0.00-0.029) H* 12/21/18 06:32 6.6 g/dL (6.3-8.2) 12/22/18 05:28 3.2 g/dL (3.9-5) L 12/22/18 05:28 0.9 % 12/22/18 05:28 Triglycerides 103 mg/dL (2-149) 12/20/18 18:30 Cholesterol 141 mg/dL (50-199) 12/20/18 18:30 78 mg/dL (50-130) 12/20/18 18:30 62 mg/dL (40-59) H 12/20/18 18:30 2.27 % 12/20/18 18:30 Yellow (Yellow) 12/20/18 22:35 Clear (Clear) 12/20/18 22:35 7.0 (5.0-7.0) 12/20/18 22:35 Ur Specific [place] 1.015 (1.003-1.030) 12/20/18 22:35 <15 mg/dl mg/dL (Negative) 12/20/18 22:35 Neg mg/dL (Negative) 12/20/18 22:35 Neg mg/dL (Negative) 12/20/18 22:35 Sm (Negative) 12/20/18 22:35 Pos (Negative) 12/20/18 22:35 Neg (Negative) 12/20/18 22:35 < 2.0 mg/dL (<2.0) 12/20/18 22:35 Ur Leukocyte Esterase Tr (Negative) 12/20/18 22:35 10.0 /HPF (0.0-6.0) H 12/20/18 22:35 2.0 /HPF (0.0-6.0) 12/20/18 22:35 U Epithel Cells (Auto) 1.0 /HPF (0-13.0) 12/20/18 22:35 1+ /HPF (Negative) 12/20/18 22:35 Few /HPF 12/20/18 22:35 Active Medications - Current Medications Current Medications: Generic Name Dose Route Start Last Admin Trade Name Freq PRN Reason Stop Dose Admin Acetaminophen 650 mg 12/21/18 01:00 Tylenol PO Q4H PRN Pain MILD(1-3)/Fever >100.5/GEORGE Aspirin 325 mg 12/21/18 22:14 12/22/18 11:29 Aspirin PO 325 mg QDAY OLIVIER Administration Atorvastatin Calcium 40 mg 12/21/18 22:00 12/21/18 21:39 Lipitor PO 40 mg QHS OLIVIER Administration Finasteride 5 mg 12/21/18 10:00 12/22/18 11:28 Proscar PO 5 mg DAILY OLIVIER Administration Ceftriaxone Sodium 1 gm in 50 mls @ 100 mls/hr 12/21/18 01:04 12/22/18 11:28 Rocephin/Ns 1 Gm/50 Ml IV 100 mls/hr Q24HR OLIVIER Administration Protocol Ondansetron HCl 4 mg 12/21/18 01:00 Zofran IV Q8H PRN Nausea And Vomiting Oxycodone/Acetaminophen 1 tab 12/21/18 01:00 Percocet 5/325 PO Q6H PRN Pain, Moderate (4-6) Sodium Chloride 10 ml 12/21/18 10:00 12/22/18 11:29 Sodium Chloride Flush Syringe 10 Ml IV 10 ml BID OLIVIER Administration Sodium Chloride 10 ml 12/21/18 01:00 Sodium Chloride Flush Syringe 10 Ml IV PRN PRN LINE FLUSH Nutrition/Malnutrition Assess - Dietary Evaluation Nutrition/Malnutrition Findings: Nutrition Notes Start: 12/21/18 16:18 Freq: Status: Active Protocol: Document 12/21/18 16:18 RM (Rec: 12/21/18 16:22 [email or web address]) Nutrition Notes 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 NPO in place ealier today. Cardiac diet ordered later today. 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 Pt stated that his DM is well controlled. Burn Absent Trauma Absent Nutrition Intervention Revisit per MD consult or patient Sign Off request:
--- NOTE | 2018-12-22 23:21 | Electroencephalogram Report ---
Electroencephalogram EEG Date of exam: 12/22/18 History: Patient is a 78 y/o man w/ a h/o HTN, pre-diabetes, anemia, who p/w episode described as slumping over for one minute, without loss of consciousness. Impression: Impression: Normal waking EEG. Description: The waking background shows an appropriate organization with well-defined anterior posterior voltage and frequency gradients. Posteriorly, there is a well-developed alpha rhythm of [8] Hz which is symmetrical and bilaterally reactive. Anteriorly, there is a pattern of lower voltage theta and beta range frequencies. During drowsiness, there is attenuation of the background rhythms. Photic stimulation done, and no notable photic drive. Throughout, the recording there are no epileptiform abnormalities, focal or lateralizing features, or significant interhemispheric findings. Interpretation: A normal EEG does not rule out seizures. Clinical correlation required.
[2018-12-23] MEDS ORDERED: LEXISCAN IV ONE ×2 (08:11→08:15)
--- NOTE | 2018-12-23 08:54 | Progress Note ---
Assessment and Plan Near syncope EKG is unremarkable. stress test today check TSH, FT4, and carotid dopplers. Hx of anemia - mangement per primary Hypertension - adequate control. maximize medical therapy as blood pressure tolerates Rhabdomyolysis - management per primary Mild troponin elevation of uncertain significance Echocardiogram reports left ventricular ejection fraction of 45%. Subjective Date of service: 12/23/18 Principal diagnosis: Pre-syncope Interval history: No acute events. Resting comfortably. No chest pain or SOB. Objective Vital Signs Temp Pulse Resp BP Pulse Ox 12/23/18 03:31 99.1 F 59 L 16 168/79 98 12/22/18 23:28 99.1 F 56 L 16 147/59 97 12/22/18 19:50 98.6 F 50 L 18 151/76 98 12/22/18 17:06 98.5 F 55 L 14 113/62 98 12/22/18 17:00 55 L 12/22/18 12:00 55 L 12/22/18 11:36 97.8 F 65 14 129/66 100 12/22/18 10:00 58 L - Physical Examination HEENT: Positive: PERRL Neck: Positive: neck supple Neuro: Positive: Grossly Intact Abdomen: Positive: Soft Skin: Positive: Clear Extremities: Absent: edema - Labs and Meds CBC 12/23/18 Range/Units 06:04 Plt Count 304 (140-440) K/mm3
[2018-12-23] MEDS: ROCEPHIN/NS 1 GM/50 ML 1 GM/50 ML BAG IV SCH (10:31)
--- NOTE | 2018-12-23 11:32 | Magnetic Resonance Report ---
MRI BRAIN WITHOUT CONTRAST INDICATION / CLINICAL INFORMATION: Possible TIA. TECHNIQUE: Multiplanar, multisequence MR images of the brain were obtained. COMPARISON: Head CT on 12/20/2018. FINDINGS: BRAIN / INTRACRANIAL CONTENTS: There is a tiny focus of restricted diffusion consistent with a lacuna r infarct in the right frontal centrum semiovale. There is no large cortical infarct or other acute i nfarct. There are moderate chronic microvascular angiopathic changes in the deep cerebral white matte r and ti. Ventricular and cisternal/sulcal size appears normal for age. CRANIOCERVICAL JUNCTION: No significant abnormality. VASCULAR FLOW-VOIDS: No significant abnormality. ORBITS: No significant abnormality of visualized orbits. SINUSES / MASTOIDS: No significant abnormality of visualized sinuses and mastoid air cells. ADDITIONAL FINDINGS: None. IMPRESSION: 1. Tiny acute lacunar infarct in the right frontal centrum semiovale. No large cortical infarct. 2. No acute hemorrhage or other acute intracranial abnormality. Signer Name: Praful Alvarenga MD Signed: 12/23/2018 11:27 AM Workstation Name: [id number]
[2018-12-23] MEDS: ASPIRIN PO SCH (12:13)
[2018-12-23] MEDS: PROSCAR PO SCH (12:13)
[2018-12-23] MEDS: SODIUM CHLORIDE FLUSH SYRINGE 10 ML IV SCH ×2 (12:15→21:47)
--- NOTE | 2018-12-23 14:17 | Vascular Lab Report ---
Bilateral Carotid Doppler Ultrasound INDICATION : syncope TECHNIQUE: Grayscale and color Doppler imaging performed through the neck. COMPARISON: None FINDINGS: Right: There is mild atherosclerotic plaque in the proximal ICA. Peak systolic velocity in the CCA is 52 cm/s with end-diastolic velocity of 8 cm/s. Peak systolic velocity in the proximal ICA is 61 cm /s with end-diastolic velocity of 13 cm/s. ICA to CCA ratio is less than 2. There is antegrade flow in the ECA and the vertebral artery. Left: There is moderate atherosclerotic disease in the proximal ICA. Peak systolic velocity in the CC A is 55 cm/s with end-diastolic velocity of 11 cm/s. Peak systolic velocity in the proximal ICA is 56 cm/s with end-diastolic velocity of 18 cm/s. ICA to CCA ratio is less than 2. There is antegrade fl ow in the ECA and the vertebral artery. IMPRESSION: No hemodynamically significant stenosis by NASCET criteria. Signer Name: Alonso Nelson MD Signed: 12/23/2018 2:13 PM Workstation Name: [id number]
--- NOTE | 2018-12-23 19:16 | Progress Note ---
Assessment and Plan Assessment and plan: Patient is a 78-year-old man with a history of hypertension, diabetes, BPH and Anemia was brought to the emergency room for right facial droop and near syncope. He has chronic lower extremity ulcer that has been after by the wound care nurse * TTE conclusions: right atrium mildly dilated, trace MR, trace TR, mild , mild AR, LV chamber size normal, mild concentric LVH, global LVSF is mildly decreased, EF 45%, abnormal LV diastolic filling c/w impaired relaxation, right ventricle moderately dilated, RV systolic function normal * Bilateral carotid u/s doppler less than 50% stenosis * pCXR no acute findings * CT head without contrast no acute findings * Stress test shows normal perfusion scan, Negative for stress induced ischemia, low risk study, EF 45% * MRI brain without contrast IMPRESSION: 1. Tiny acute lacunar infarct in the right frontal centrum semiovale. No large cortical infarct. 2. No acute hemorrhage or other acute intracranial abnormality. 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 Patient unsure as to why the anemia BPH with prostatitis/UTI: continue IV rocephin, urine culture was contaminated Diabetes mellitus type 2; ssi, accucheck, ada Chronic Right lower extremity ulcer: consult Wound care DVT ppx; on hold due to drop in HCT/Hbg Disposition: continue inpatient care, await PT/OT evaluation and if h/h is stable/doesn't drop then discharge tomorrow. History Interval history: Patient was seen and examined. Follow-up on current diagnosis of Syncope. No overnight events reported to me. Patient denies any chest pain, shortness breath, nausea/vomiting or severe headaches. Imaging, nursing note, chart, labs and old chart reviewed. Discussed with patient. Hospitalist Physical - Physical exam Narrative exam: Gen: WDWN, NAD, Awake, Alert, Orientated HEENT: NCAT, EOMI, PERRL, OP Clear Neck: supple, no adenopathy, no thyromegaly, no JVD CVS/Heart: RRR, normal S1S2, pulses present bilaterally Chest/Lungs: CTA B, Symmetrical chest expansion, good air entry bilaterally GI/Abdomen: soft, NTND, good bowel sounds, no guarding or rebound /Bladder: no suprapubic tenderness, no CVA or paraspinal tenderness Extermity/Skin: no c/c/e, right lower leg ulcer, large venous stasis ulcer, stage 3 at least MSK: FROM x 4 Neuro: CN 2-12 grossly intact, no new focal deficits Psych: calm - Constitutional Vitals: Temp Pulse Resp BP Pulse Ox 97.8 F 56 L 16 155/63 100 12/23/18 16:22 12/23/18 16:22 12/23/18 16:22 12/23/18 16:22 12/23/18 16:22 General appearance: Present: no acute distress Results - Labs CBC & Chem 7: 12/23/18 06:04 12/22/18 05:28 Labs: Laboratory Last Values WBC 8.6 K/mm3 (4.5-11.0) 12/22/18 05:28 RBC 2.91 M/mm3 (3.65-5.03) L 12/22/18 05:28 Hgb 8.6 gm/dl (11.8-15.2) L 12/22/18 05:28 Hct 26.3 % (35.5-45.6) L 12/22/18 05:28 MCV 90 fl (84-94) 12/22/18 05:28 MCH 30 pg (28-32) 12/22/18 05:28 MCHC 33 % (32-34) 12/22/18 05:28 RDW 19.2 % (13.2-15.2) H 12/22/18 05:28 Plt Count 304 K/mm3 (140-440) 12/23/18 06:04 Lymph % (Auto) 14.5 % (13.4-35.0) 12/21/18 03:53 [place] % (Auto) 5.9 % (0.0-7.3) 12/21/18 03:53 Eos % (Auto) 0.4 % (0.0-4.3) 12/21/18 03:53 Baso % (Auto) 0.6 % (0.0-1.8) 12/21/18 03:53 Lymph # 1.5 K/mm3 (1.2-5.4) 12/21/18 03:53 Rice # 0.6 K/mm3 (0.0-0.8) 12/21/18 03:53 Eos # 0.0 K/mm3 (0.0-0.4) 12/21/18 03:53 Baso # 0.1 K/mm3 (0.0-0.1) 12/21/18 03:53 Seg Neutrophils % 78.6 % (40.0-70.0) H 12/21/18 03:53 Seg Neutrophils # 8.2 K/mm3 (1.8-7.7) H 12/21/18 03:53 PT 14.2 Sec. (12.2-14.9) 12/21/18 10:34 INR 1.13 (0.87-1.13) 12/21/18 10:34 APTT 33.2 Sec. (24.2-36.6) 12/21/18 10:34 16.5 Sec. (15.1-19.6) 12/20/18 19:23 Sodium 135 mmol/L (137-145) L 12/22/18 05:28 Potassium 4.1 mmol/L (3.6-5.0) 12/22/18 05:28 Chloride 99.1 mmol/L (98-107) 12/22/18 05:28 Carbon Dioxide 25 mmol/L (22-30) 12/22/18 05:28 15 mmol/L 12/22/18 05:28 BUN 29 mg/dL (9-20) H 12/22/18 05:28 0.9 mg/dL (0.8-1.5) 12/22/18 05:28 Estimated GFR > 60 ml/min 12/22/18 05:28 32 % 12/22/18 05:28 Glucose 107 mg/dL (75-100) H 12/22/18 05:28 POC Glucose 164 (70-105) H 12/20/18 18:25 Calcium 8.6 mg/dL (8.4-10.2) 12/22/18 05:28 1.10 mg/dL (0.1-1.2) 12/22/18 05:28 0.3 mg/dL (0-0.2) H 12/21/18 10:34 1.1 mg/dL 12/21/18 10:34 AST 45 units/L (5-40) H 12/22/18 05:28 ALT 45 units/L (7-56) 12/22/18 05:28 80 units/L (35-129) 12/22/18 05:28 851 units/L (55-170) H 12/21/18 06:32 CK-MB (CK-2) 14.6 ng/mL (0.0-4.0) H 12/21/18 06:32 CK-MB (CK-2) Rel Index 1.7 (0-4) 12/21/18 06:32 0.150 ng/mL (0.00-0.029) H* 12/21/18 06:32 6.6 g/dL (6.3-8.2) 12/22/18 05:28 3.2 g/dL (3.9-5) L 12/22/18 05:28 0.9 % 12/22/18 05:28 Triglycerides 103 mg/dL (2-149) 12/20/18 18:30 Cholesterol 141 mg/dL (50-199) 12/20/18 18:30 78 mg/dL (50-130) 12/20/18 18:30 62 mg/dL (40-59) H 12/20/18 18:30 2.27 % 12/20/18 18:30 TSH 1.670 mlU/mL (0.270-4.200) 12/23/18 10:30 Free T4 0.94 ng/dL (0.76-1.46) 12/23/18 10:30 Yellow (Yellow) 12/20/18 22:35 Clear (Clear) 12/20/18 22:35 7.0 (5.0-7.0) 12/20/18 22:35 Ur Specific [place] 1.015 (1.003-1.030) 12/20/18 22:35 <15 mg/dl mg/dL (Negative) 12/20/18 22:35 Neg mg/dL (Negative) 12/20/18 22:35 Neg mg/dL (Negative) 12/20/18 22:35 Sm (Negative) 12/20/18 22:35 Pos (Negative) 12/20/18 22:35 Neg (Negative) 12/20/18 22:35 < 2.0 mg/dL (<2.0) 12/20/18 22:35 Ur Leukocyte Esterase Tr (Negative) 12/20/18 22:35 10.0 /HPF (0.0-6.0) H 12/20/18 22:35 2.0 /HPF (0.0-6.0) 12/20/18 22:35 U Epithel Cells (Auto) 1.0 /HPF (0-13.0) 12/20/18 22:35 1+ /HPF (Negative) 12/20/18 22:35 Few /HPF 12/20/18 22:35 Active Medications - Current Medications Current Medications: Generic Name Dose Route Start Last Admin Trade Name Freq PRN Reason Stop Dose Admin Acetaminophen 650 mg 12/21/18 01:00 Tylenol PO Q4H PRN Pain MILD(1-3)/Fever >100.5/GEORGE Aspirin 325 mg 12/21/18 22:14 12/23/18 12:13 Aspirin PO 325 mg QDAY OLIVIER Administration Atorvastatin Calcium 40 mg 12/21/18 22:00 12/22/18 21:36 Lipitor PO 40 mg QHS OLIVIER Administration Finasteride 5 mg 12/21/18 10:00 12/23/18 12:13 Proscar PO 5 mg DAILY OLIVIER Administration Ceftriaxone Sodium 1 gm in 50 mls @ 100 mls/hr 12/21/18 01:04 12/23/18 10:31 Rocephin/Ns 1 Gm/50 Ml IV 100 mls/hr Q24HR OLIVIER Administration Protocol Ondansetron HCl 4 mg 12/21/18 01:00 Zofran IV Q8H PRN Nausea And Vomiting Oxycodone/Acetaminophen 1 tab 12/21/18 01:00 Percocet 5/325 PO Q6H PRN Pain, Moderate (4-6) Sodium Chloride 10 ml 12/21/18 10:00 12/23/18 12:15 Sodium Chloride Flush Syringe 10 Ml IV 10 ml BID OLIVIER Administration Sodium Chloride 10 ml 12/21/18 01:00 Sodium Chloride Flush Syringe 10 Ml IV PRN PRN LINE FLUSH Nutrition/Malnutrition Assess - Dietary Evaluation Nutrition/Malnutrition Findings: Nutrition Notes Start: 12/21/18 16:18 Freq: Status: Active Protocol: Document 12/21/18 16:18 RM (Rec: 12/21/18 16:22 RM [email or web address]) Nutrition Notes Need for Assessment generated from: teletype adjuster Initial or Follow up Brief Note Current Diagnosis Diabetes,Hypertension Other Pertinent Diagnosis UTI Current Diet Cardiac Labs/Tests BG 107 Pertinent Medications Reviewed Height 5 ft 9 in Weight 154 kg [place] Body Weight (kg) 72.72 BMI 50.1 Subjective/Other Information Screened for new onset DM. NPO in place ealier today. Cardiac diet ordered later today. Pt stated that [employer] his appetite was good but that he had not eaten since admission d/t NPO status. Pt stated that his DM is well controlled. Burn Absent Trauma Absent Nutrition Intervention Revisit per MD consult or patient Sign Off request:
--- NOTE | 2018-12-23 20:19 | Progress Note ---
Assessment and Plan Patient is a 78 y/o man w/ a h/o HTN, pre-diabetes, anemia, who p/w episode described as slumping over for one minute, without loss of consciousness. According to the patient's clinical findings, it is possible that the episode was cardio-genic in nature, as patient has been found to have elevated troponin during this admission. Patient found to have an ischemic stroke on MRI. Patient has also been found to have a UTI, and recently required a blood transfusion for low hemoglobin 2 weeks ago, both of which could have contributed to the change in level of consciousness. Plan: 1. Stroke: - MRI revealed small infarct in Rt. subcortical region, possibly lacunar. - CUS did not reveal any significant stenosis - Will check CTA head. - Check Lipid profile. - Aspirin 81mg daily - Atorvastatin 40mg daily, with LDL goal <70. - Echo: EF 45%, LA normal size, bubble study not done. - Telemetry monitoring while in house. - DVT Ppx: recommend lovenox - Recommend PT/OT/ST 2. HTN: - Recommend BP goal of normotension, as it has been >48 hours since symptom onset. 3. Pre-syncope: - Patient had another syncopeal event about 2-3 months ago in which he lost consciousness, per his daughter, however did not recall any loss of bowel/bladd er control. - Likely cardiogenic in etiology. Continue workup per primary team/cardiology - EEG: no epileptiform activity 4. UTI: - continue to treat per primary team 5. Elevated troponin: - continue to investigate/manage per cardiology/primary team Will continue to follow. Frank Yun MD Subjective Date of service: 12/23/18 Principal diagnosis: Pre-syncope Interval history: No acute events overnight. Objective - Vital Sign Vital Signs - 12hr 12/23/18 12/23/18 12/23/18 08:25 08:47 08:50 Temperature Pulse Rate Respiratory Rate Blood Pressure 163/67 161/70 163/57 O2 Sat by Pulse Oximetry 12/23/18 12/23/18 12/23/18 08:52 08:54 08:56 Temperature Pulse Rate Respiratory Rate Blood Pressure 137/65 127/65 149/65 O2 Sat by Pulse Oximetry 12/23/18 12/23/18 12/23/18 08:59 13:13 16:22 Temperature 97.7 F 97.8 F Pulse Rate 57 L 56 L Respiratory 18 16 Rate Blood Pressure 137/62 156/72 155/63 O2 Sat by Pulse 99 100 Oximetry - General Apperance Constitutional: comfortable - EENT EENT: ATNC, PERRL, mucous membranes moist, hearing intact, vision intact - Respiratory Respiratory: lungs clear, normal breath sounds - Cardiovascular Cardiovascular: regular rate, normal S1, normal S2 Extremities: no peripheral edema bilat, no clubbing, cyanosis - Gastrointestinal Gastrointestinal: normoactive bowel sounds, soft, non-tender - Integumentary Integumentary: normal - Neurologic Cranial nerve examination: PERRL, EOMI, V1/V2/V3 grossly intact, face symmetric, tongue midline, intact shoulder shrug Speech examination: intact Detailed motor examination: full strength in all shae Motor examination - right side: 5/5: biceps, triceps, wrist flexion, wrist extension, ndt inspector, hip flexors, knee extensors, dorsiflexion, toe extension (EHL), plantarflexion Motor examination - left side: 5/5: biceps, triceps, wrist flexion, wrist ex tension, ndt inspector, hip flexors, knee extensors, dorsiflexion, toe extension (EHL), plantarflexion Detailed sensory examination: intact, light touch Reflexes: 2+: ankle, bicep, knee, tricep Cerebellar examination: other (b/l intact to FTN and HTS) - Musculoskeletal Musculoskeletal: no fluid collection, no pain, normal range of motion - Psychiatric Psychiatric: mood/affect appropriate - Laboratory Findings CBC and BMP: 12/23/18 06:04 12/22/18 05:28 Abnormal Lab Findings: Abnormal Labs 12/20/18 12/20/18 12/20/18 18:25 18:30 19:23 RBC 3.31 L Hgb 9.8 L Hct 29.7 L RDW 19.5 H Seg Neutrophils % Seg Neutrophils # Sodium 136 L BUN 30 H Glucose 154 H POC Glucose 164 H Total Bilirubin Direct Bilirubin AST 76 H ALT 66 H Total Creatine Kinase 1087 H CK-MB (CK-2) 20.4 H Troponin T 0.116 H* Albumin 3.8 L HDL Cholesterol 62 H Urine WBC (Auto) 12/20/18 12/20/18 12/21/18 21:29 22:35 00:21 RBC Hgb Hct RDW Seg Neutrophils % Seg Neutrophils # Sodium BUN Glucose POC Glucose Total Bilirubin Direct Bilirubin AST ALT Total Creatine Kinase CK-MB (CK-2) Troponin T 0.119 H* 0.125 H* Albumin HDL Cholesterol Urine WBC (Auto) 10.0 H 12/21/18 12/21/18 12/21/18 03:53 03:53 03:53 RBC 3.26 L Hgb 9.6 L Hct 29.7 L RDW 19.7 H Seg Neutrophils % 78.6 H Seg Neutrophils # 8.2 H Sodium 134 L BUN 29 H Glucose 107 H POC Glucose Total Bilirubin Direct Bilirubin AST ALT Total Creatine Kinase 903 H CK-MB (CK-2) 15.7 H Troponin T 0.131 H* Albumin HDL Cholesterol Urine WBC (Auto) 12/21/18 12/21/18 12/21/18 06:32 10:34 10:34 RBC Hgb 9.8 L Hct 29.5 L RDW Seg Neutrophils % Seg Neutrophils # Sodium BUN Glucose POC Glucose Total Bilirubin 1.40 H Direct Bilirubin 0.3 H AST 64 H ALT 57 H Total Creatine Kinase 851 H CK-MB (CK-2) 14.6 H Troponin T 0.150 H* Albumin 3.5 L HDL Cholesterol Urine WBC (Auto) 12/22/18 12/22/18 05:28 05:28 RBC 2.91 L Hgb 8.6 L Hct 26.3 L RDW 19.2 H Seg Neutrophils % Seg Neutrophils # Sodium 135 L BUN 29 H Glucose 107 H POC Glucose Total Bilirubin Direct Bilirubin AST 45 H ALT Total Creatine Kinase CK-MB (CK-2) Troponin T Albumin 3.2 L HDL Cholesterol Urine WBC (Auto)
[2018-12-23] MEDS: NORVASC PO SCH (22:19)
[2018-12-24] MEDS: APRESOLINE IV PRN ×2 (02:37→06:40)
[2018-12-24 06:34] LABS: Hematocrit 28.4 % (35.5-45.6); Hemoglobin 9.3 gm/dl (11.8-15.2); Mean Corpuscular HGB Conc 33 % (32-34); Mean Corpuscular Volume 90 fl (84-94); Platelet Count 339 K/mm3 (140-440); Red Blood Count 3.17 M/mm3 (3.65-5.03); Red Cell Distribution Width 18.9 % (13.2-15.2)
[2018-12-24 06:51] LABS: BUN/Creatinine Ratio 33; Blood Urea Nitrogen 23 mg/dL (9-20); Calcium 8.6 mg/dL (8.4-10.2); Hemolysis Index 1
[2018-12-24] MEDS ORDERED: IMODIUM PO NR (09:45)
[2018-12-24] MEDS: ASPIRIN PO SCH (09:55)
[2018-12-24] MEDS: PROSCAR PO SCH (09:55)
[2018-12-24] MEDS: FEOSOL PO SCH ×2 (09:56→19:35)
[2018-12-24] MEDS: ROCEPHIN/NS 1 GM/50 ML 1 GM/50 ML BAG IV SCH (09:57)
[2018-12-24] MEDS: NORVASC PO SCH (11:43)
[2018-12-24] MEDS: TOPROL XL PO SCH (11:44)
[2018-12-24] MEDS: SODIUM CHLORIDE FLUSH SYRINGE 10 ML IV SCH ×2 (11:45→21:42)
--- NOTE | 2018-12-24 11:52 | Cat Scan Report ---
CTA head with and without IV contrast. CLINICAL HISTORY: Cerebrovascular accident. Technique: Multiple contiguous postcontrast CT images of the head were obtained at 0.63 mm intervals. 3 plane MIP reconstructions were obtained. Precontrast localizing images were also performed. CT scan s at this location are performed using the CT dose reduction for ALARA by means of automated exposure control. FINDINGS: No previous exams available for comparison. The intracranial vessels demonstrate appropriat e caliber without significant focal stenosis by NASCET criteria. There is no CTA evidence of intracra nial aneurysm. The dural venous sinuses opacify with contrast. There is mild to moderate cerebral whi te matter disease most consistent with microvascular angiopathy. Findings correlate with the earlier CT head. IMPRESSION: There is no CTA evidence evidence of significant stenosis involving intracranial vessels. Signer Name: Cooper Read MD Signed: 12/24/2018 11:47 AM Workstation Name: [id number]
--- NOTE | 2018-12-24 13:05 | Treadmill Report ---
THALLIUM STRESS TEST LEFT VENTRICLE: Left ventricular chamber size at the upper limits of normal. There is a small to moderate sized, fixed basal inferior defect. There is no reversibility on the resting study. Gated analysis demonstrates mild left ventricular systolic dysfunction with ejection fraction calculated at 45%. 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 There is no reversible ischemia demonstrated on this study. Clinical correlation is recommended. PSYCHIATRIC# [id number] CA/NTS
--- NOTE | 2018-12-24 14:35 | Progress Note ---
Assessment and Plan - Patient Problems (1) Syncope Current Visit: Yes Status: Acute Plan to address problem: 78-year-old man with a history of anemia and hypertension, admitted with a near syncopal episode. EKG is unremarkable. CPK is markedly elevated with an a ppearance of rhabdomyolysis. There is a mild troponin elevation of uncertain significance. Echocardiogram reports left ventricular ejection fraction of 45%. Thallium stress test was negative. Subjective Date of service: 12/24/18 Principal diagnosis: Pre-syncope Interval history: Patient is comfortable, in no acute distress. No new cardiac complaints. Objective Vital Signs Temp Pulse Resp BP Pulse Ox 12/24/18 13:04 70 12/24/18 11:44 82 128/82 12/24/18 11:43 82 128/66 12/24/18 06:52 56 L 117/55 98 12/24/18 04:22 98.2 F 16 160/74 12/24/18 01:58 61 202/91 99 12/24/18 00:05 98.9 F 63 20 209/89 98 12/24/18 00:00 82 12/23/18 22:19 190/88 12/23/18 19:34 98.3 F 57 L 20 190/88 100 12/23/18 16:22 97.8 F 56 L 16 155/63 100 - Physical Examination General: No Apparent Distress HEENT: Positive: PERRL Neck: Positive: neck supple Cardiac: Positive: Reg Rate and Rhythm Lungs: Positive: Decreased Breath Sounds Neuro: Positive: Grossly Intact Abdomen: Positive: Soft Skin: Positive: Clear Extremities: Absent: edema - Labs and Meds CBC 12/24/18 Range/Units 05:55 WBC 7.1 (4.5-11.0) K/mm3 RBC 3.17 L (3.65-5.03) M/mm3 Hgb 9.3 L (11.8-15.2) gm/dl Hct 28.4 L (35.5-45.6) % Plt Count 339 (140-440) K/mm3 Comprehensive Metabolic Panel 12/24/18 Range/Units 05:55 Sodium 136 L (137-145) mmol/L Potassium 3.8 (3.6-5.0) mmol/L Chloride 98.0 (98-107) mmol/L Carbon Dioxide 25 (22-30) mmol/L BUN 23 H (9-20) mg/dL Creatinine 0.7 L (0.8-1.5) mg/dL Glucose 118 H (75-100) mg/dL Calcium 8.6 (8.4-10.2) mg/dL
--- NOTE | 2018-12-24 19:09 | Progress Note ---
Assessment and Plan Patient is a 78 y/o man w/ a h/o HTN, pre-diabetes, anemia, who p/w episode described as slumping over for one minute, without loss of consciousness. According to the patient's clinical findings, it is possible that the episode was cardio-genic in nature, as patient has been found to have elevated troponin during this admission. Patient found to have an ischemic stroke on MRI. Patient has also been found to have a UTI, and recently required a blood transfusion for low hemoglobin 2 weeks ago, both of which could have contributed to the change in level of consciousness. Plan: 1. Stroke: - MRI revealed small infarct in Rt. subcortical region, possibly lacunar vs. embolic. - CUS did not reveal any significant stenosis - CTA head did not reveal any significant stenosis. - LDL 78. - Aspirin 81mg daily - Atorvastatin 40mg daily, with LDL goal <70. - Echo: EF 45%, LA normal size, bubble study not done. - Recommend check bubble study. - Telemetry monitoring while in house. - DVT Ppx: recommend lovenox - Recommend PT/OT/ST - As stroke may be lacunar vs. embolic in origin, would recommend for patient to have heart monitoring done outpatient with either 30-day MCOT or ILR. Recommend follow up with cardiology outpatient in order for this to be done. - Recommend outpatient follow up with neurology for stroke after discharge. 2. HTN: - Recommend BP goal of normotension, as it has been >48 hours since symptom onset. 3. Pre-syncope: - Patient had another syncopeal event about 2-3 months ago in which he lost consciousness, per his daughter, however did not recall any loss of bowel/bladder control. - Likely cardiogenic in etiology. Continue workup per primary team/cardiology - EEG: no epileptiform activity 4. UTI: - continue to treat per primary team 5. Elevated troponin: - continue to investigate/manage per cardiology/primary team - Will continue to follow Frank Yun MD Neurology Subjective Date of service: 12/24/18 Principal diagnosis: Pre-syncope Interval history: No acute events overnight. Objective - Vital Sign Vital Signs - 12hr 12/24/18 12/24/18 12/24/18 11:43 11:44 13:04 Pulse Rate 82 82 70 Blood Pressure 128/66 128/82 - General Apperance Constitutional: comfortable - EENT EENT: ATNC, PERRL, mucous membranes moist, hearing intact, vision intact - Respiratory Respiratory: lungs clear, normal breath sounds - Cardiovascular Cardiovascular: regular rate, normal S1, normal S2 Extremities: no peripheral edema bilat, no clubbing, cyanosis - Gastrointestinal Gastrointestinal: normoactive bowel sounds, soft, non-tender - Integumentary Integumentary: normal - Neurologic Cranial nerve examination: PERRL, EOMI, VFF, V1/V2/V3 grossly intact, face symmetric, tongue midline, intact shoulder shrug Speech examination: intact Detailed motor examination: full strength in all shae Motor examination - right side: 5/5: biceps, triceps, wrist flexion, wrist extension, car deliverer, hip flexors, knee extensors, dorsiflexion, toe extension (EHL), plantarflexion Motor examination - left side: 5/5: biceps, triceps, wrist flexion, wrist extension, car deliverer, hip flexors, knee extensors, dorsiflexion, toe extension (EHL), plantarflexion Detailed sensory examination: intact, light touch Reflexes: 2+: ankle, bicep, knee, tricep Cerebellar examination: other (b/l intact to FTN and HTS) - Musculoskeletal Musculoskeletal: no fluid collection, no pain, normal range of motion - Psychiatric Psychiatric: mood/affect appropriate - Laboratory Findings CBC and BMP: 12/24/18 05:55 12/24/18 05:55 Abnormal Lab Findings: Abnormal Labs 12/20/18 12/20/18 12/20/18 18:25 18:30 19:23 RBC 3.31 L Hgb 9.8 L Hct 29.7 L RDW 19.5 H Seg Neutrophils % Seg Neutrophils # Sodium 136 L BUN 30 H Creatinine Glucose 154 H POC Glucose 164 H Total Bilirubin Direct Bilirubin AST 76 H ALT 66 H Total Creatine Kinase 1087 H CK-MB (CK-2) 20.4 H Troponin T 0.116 H* Albumin 3.8 L HDL Cholesterol 62 H Urine WBC (Auto) 12/20/18 12/20/18 12/21/18 21:29 22:35 00:21 RBC Hgb Hct RDW Seg Neutrophils % Seg Neutrophils # Sodium BUN Creatinine Glucose POC Glucose Total Bilirubin Direct Bilirubin AST ALT Total Creatine Kinase CK-MB (CK-2) Troponin T 0.119 H* 0.125 H* Albumin HDL Cholesterol Urine WBC (Auto) 10.0 H 12/21/18 12/21/18 12/21/18 03:53 03:53 03:53 RBC 3.26 L Hgb 9.6 L Hct 29.7 L RDW 19.7 H Seg Neutrophils % 78.6 H Seg Neutrophils # 8.2 H Sodium 134 L BUN 29 H Creatinine Glucose 107 H POC Glucose Total Bilirubin Direct Bilirubin AST ALT Total Creatine Kinase 903 H CK-MB (CK-2) 15.7 H Troponin T 0.131 H* Albumin HDL Cholesterol Urine WBC (Auto) 12/21/18 12/21/18 12/21/18 06:32 10:34 10:34 RBC Hgb 9.8 L Hct 29.5 L RDW Seg Neutrophils % Seg Neutrophils # Sodium BUN Creatinine Glucose POC Glucose Total Bilirubin 1.40 H Direct Bilirubin 0.3 H AST 64 H ALT 57 H Total Creatine Kinase 851 H CK-MB (CK-2) 14.6 H Troponin T 0.150 H* Albumin 3.5 L HDL Cholesterol Urine WBC (Auto) 12/22/18 12/22/18 12/24/18 05:28 05:28 05:55 RBC 2.91 L 3.17 L Hgb 8.6 L 9.3 L Hct 26.3 L 28.4 L RDW 19.2 H 18.9 H Seg Neutrophils % Seg Neutrophils # Sodium 135 L BUN 29 H Creatinine Glucose 107 H POC Glucose Total Bilirubin Direct Bilirubin AST 45 H ALT Total Creatine Kinase CK-MB (CK-2) Troponin T Albumin 3.2 L HDL Cholesterol Urine WBC (Auto) 12/24/18 05:55 RBC Hgb Hct RDW Seg Neutrophils % Seg Neutrophils # Sodium 136 L BUN 23 H Creatinine 0.7 L Glucose 118 H POC Glucose Total Bilirubin Direct Bilirubin AST ALT Total Creatine Kinase CK-MB (CK-2) Troponin T Albumin HDL Cholesterol Urine WBC (Auto)
--- NOTE | 2018-12-24 19:28 | Progress Note ---
Assessment and Plan Assessment and plan: Patient is a 78-year-old man with a history of hypertension, diabetes, BPH and Anemia was brought to the emergency room for right facial droop and near syncope. He has chronic lower extremity ulcer that has been after by the wound care nurse * TTE conclusions: right atrium mildly dilated, trace MR, trace TR, mild , mild AR, LV chamber size normal, mild concentric LVH, global LVSF is mildly decreased, EF 45%, abnormal LV diastolic filling c/w impaired relaxation, right ventricle moderately dilated, RV systolic function normal * Bilateral carotid u/s doppler less than 50% stenosis * pCXR no acute findings * CT head without contrast no acute findings * Stress test shows normal perfusion scan, Negative for stress induced ischemia, low risk study, EF 45% * MRI brain without contrast IMPRESSION: 1. Tiny acute lacunar infarct in the right frontal centrum semiovale. No large cortical infarct. 2. No acute hemorrhage or other acute intracranial abnormality. NSVT, 5 beat run today: Cardiology following, check electrolytes, Right facial droop due to Acute Ischemic stroke: treat with ASA/statin, ordered PT/OT/rehab assessment NSTEMI type 2: consulted Cardiology, stress test negative for ischemia, treat the NICMP Acute combined heart failure, poa: consulted Cardiology, input noted Near-syncope: Neurology consulted, input noted, suspect Cardiogenic Hypertension: low salt diet, treat with antihypertensives Drop in HCT/Hgb, Acute on chronic Anemia With recent transfusion of 3 units of PRBC. Patient unsure as to why the anemia BPH with prostatitis/UTI: continue IV rocephin, urine culture was contaminated Diabetes mellitus type 2; ssi, accucheck, ada Chronic Right lower extremity ulcer: consult Wound care DVT ppx; on hold due to drop in HCT/Hbg Disposition: continue inpatient care, RE-ordered TTE for bubble study History Interval history: Patient was seen and examined. Follow-up on current diagnosis of Syncope. No overnight events reported to me. Patient denies any chest pain, shortness breath, nausea/vomiting or severe headaches. Imaging, nursing note, chart, labs and old chart reviewed. Discussed with patient. He diarrhea resolved with Imodium Hospitalist Physical - Physical exam Narrative exam: Gen: WDWN, NAD, Awake, Alert, Orientated HEENT: NCAT, EOMI, PERRL, OP Clear Neck: supple, no adenopathy, no thyromegaly, no JVD CVS/Heart: RRR, normal S1S2, pulses present bilaterally Chest/Lungs: CTA B, Symmetrical chest expansion, good air entry bilaterally GI/Abdomen: soft, NTND, good bowel sounds, no guarding or rebound /Bladder: no suprapubic tenderness, no CVA or paraspinal tenderness Extermity/Skin: no c/c/e, right lower leg ulcer, large venous stasis ulcer, stage 3 at least MSK: FROM x 4 Neuro: CN 2-12 grossly intact, no new focal deficits Psych: calm - Constitutional Vitals: Temp Pulse Resp BP Pulse Ox 98.2 F 70 16 128/82 98 12/24/18 04:22 12/24/18 13:04 12/24/18 04:22 12/24/18 11:44 12/24/18 06:52 General appearance: Present: no acute distress Results - Labs CBC & Chem 7: 12/24/18 05:55 12/24/18 05:55 Labs: Laboratory Last Values WBC 7.1 K/mm3 (4.5-11.0) 12/24/18 05:55 RBC 3.17 M/mm3 (3.65-5.03) L 12/24/18 05:55 Hgb 9.3 gm/dl (11.8-15.2) L 12/24/18 05:55 Hct 28.4 % (35.5-45.6) L 12/24/18 05:55 MCV 90 fl (84-94) 12/24/18 05:55 MCH 29 pg (28-32) 12/24/18 05:55 MCHC 33 % (32-34) 12/24/18 05:55 RDW 18.9 % (13.2-15.2) H 12/24/18 05:55 Plt Count 339 K/mm3 (140-440) 12/24/18 05:55 Lymph % (Auto) 14.5 % (13.4-35.0) 12/21/18 03:53 [place] % (Auto) 5.9 % (0.0-7.3) 12/21/18 03:53 Eos % (Auto) 0.4 % (0.0-4.3) 12/21/18 03:53 Baso % (Auto) 0.6 % (0.0-1.8) 12/21/18 03:53 Lymph # 1.5 K/mm3 (1.2-5.4) 12/21/18 03:53 [place] # 0.6 K/mm3 (0.0-0.8) 12/21/18 03:53 Eos # 0.0 K/mm3 (0.0-0.4) 12/21/18 03:53 Baso # 0.1 K/mm3 (0.0-0.1) 12/21/18 03:53 Seg Neutrophils % 78.6 % (40.0-70.0) H 12/21/18 03:53 Seg Neutrophils # 8.2 K/mm3 (1.8-7.7) H 12/21/18 03:53 PT 14.2 Sec. (12.2-14.9) 12/21/18 10:34 INR 1.13 (0.87-1.13) 12/21/18 10:34 APTT 33.2 Sec. (24.2-36.6) 12/21/18 10:34 16.5 Sec. (15.1-19.6) 12/20/18 19:23 Sodium 136 mmol/L (137-145) L 12/24/18 05:55 Potassium 3.8 mmol/L (3.6-5.0) 12/24/18 05:55 Chloride 98.0 mmol/L (98-107) 12/24/18 05:55 Carbon Dioxide 25 mmol/L (22-30) 12/24/18 05:55 17 mmol/L 12/24/18 05:55 BUN 23 mg/dL (9-20) H 12/24/18 05:55 0.7 mg/dL (0.8-1.5) L 12/24/18 05:55 Estimated GFR > 60 ml/min 12/24/18 05:55 33 % 12/24/18 05:55 Glucose 118 mg/dL (75-100) H 12/24/18 05:55 POC Glucose 164 (70-105) H 12/20/18 18:25 Calcium 8.6 mg/dL (8.4-10.2) 12/24/18 05:55 1.10 mg/dL (0.1-1.2) 12/22/18 05:28 0.3 mg/dL (0-0.2) H 12/21/18 10:34 1.1 mg/dL 12/21/18 10:34 AST 45 units/L (5-40) H 12/22/18 05:28 ALT 45 units/L (7-56) 12/22/18 05:28 80 units/L (35-129) 12/22/18 05:28 851 units/L (55-170) H 12/21/18 06:32 CK-MB (CK-2) 14.6 ng/mL (0.0-4.0) H 12/21/18 06:32 CK-MB (CK-2) Rel Index 1.7 (0-4) 12/21/18 06:32 0.150 ng/mL (0.00-0.029) H* 12/21/18 06:32 6.6 g/dL (6.3-8.2) 12/22/18 05:28 3.2 g/dL (3.9-5) L 12/22/18 05:28 0.9 % 12/22/18 05:28 Triglycerides 103 mg/dL (2-149) 12/20/18 18:30 Cholesterol 141 mg/dL (50-199) 12/20/18 18:30 78 mg/dL (50-130) 12/20/18 18:30 62 mg/dL (40-59) H 12/20/18 18:30 2.27 % 12/20/18 18:30 TSH 1.670 mlU/mL (0.270-4.200) 12/23/18 10:30 Free T4 0.94 ng/dL (0.76-1.46) 12/23/18 10:30 Yellow (Yellow) 12/20/18 22:35 Clear (Clear) 12/20/18 22:35 7.0 (5.0-7.0) 12/20/18 22:35 Ur Specific [place] 1.015 (1.003-1.030) 12/20/18 22:35 <15 mg/dl mg/dL (Negative) 12/20/18 22:35 Neg mg/dL (Negative) 12/20/18 22:35 Neg mg/dL (Negative) 12/20/18 22:35 Sm (Negative) 12/20/18 22:35 Pos (Negative) 12/20/18 22:35 Neg (Negative) 12/20/18 22:35 < 2.0 mg/dL (<2.0) 12/20/18 22:35 Ur Leukocyte Esterase Tr (Negative) 12/20/18 22:35 10.0 /HPF (0.0-6.0) H 12/20/18 22:35 2.0 /HPF (0.0-6.0) 12/20/18 22:35 U Epithel Cells (Auto) 1.0 /HPF (0-13.0) 12/20/18 22:35 1+ /HPF (Negative) 12/20/18 22:35 Few /HPF 12/20/18 22:35 Active Medications - Current Medications Current Medications: Generic Name Dose Route Start Last Admin Trade Name Freq PRN Reason Stop Dose Admin Acetaminophen 650 mg 12/21/18 01:00 Tylenol PO Q4H PRN Pain MILD(1-3)/Fever >100.5/GEORGE Amlodipine Besylate 10 mg 12/23/18 22:00 12/24/18 11:43 Norvasc PO 10 mg DAILY OLIVIER Administration Aspirin 325 mg 12/21/18 22:14 12/24/18 09:55 Aspirin PO 325 mg QDAY OLIVIER Administration Atorvastatin Calcium 40 mg 12/21/18 22:00 12/23/18 21:47 Lipitor PO 40 mg QHS OLIVIER Administration Ferrous Sulfate 325 mg 12/24/18 08:00 12/24/18 09:56 Feosol PO 325 mg TID OLIVIER Administration Finasteride 5 mg 12/21/18 10:00 12/24/18 09:55 Proscar PO 5 mg DAILY OLIVIER Administration Hydralazine HCl 10 mg 12/24/18 02:17 12/24/18 02:37 Apresoline IV 10 mg Q4H PRN Administration Blood Pressure Ceftriaxone Sodium 1 gm in 50 mls @ 100 mls/hr 12/21/18 01:04 12/24/18 09:57 Rocephin/Ns 1 Gm/50 Ml IV 100 mls/hr Q24HR OLIVIER Administration Protocol Metoprolol Succinate 50 mg 12/24/18 10:00 12/24/18 11:44 Toprol Xl PO 50 mg DAILY OLIVIER Administration Ondansetron HCl 4 mg 12/21/18 01:00 Zofran IV Q8H PRN Nausea And Vomiting Oxycodone/Acetaminophen 1 tab 12/21/18 01:00 Percocet 5/325 PO Q6H PRN Pain, Moderate (4-6) Sodium Chloride 10 ml 12/21/18 10:00 12/24/18 11:45 Sodium Chloride Flush Syringe 10 Ml IV 10 ml BID OLIVIER Administration Sodium Chloride 10 ml 12/21/18 01:00 Sodium Chloride Flush Syringe 10 Ml IV PRN PRN LINE FLUSH Nutrition/Malnutrition Assess - Dietary Evaluation Nutrition/Malnutrition Findings: Nutrition Notes Start: 12/21/18 16:18 Freq: Status: Active Protocol: Document 12/21/18 16:18 RM (Rec: 12/21/18 16:22 RM [email or web address]) Nutrition Notes Need for Assessment generated from: support representative Initial or Follow up Brief Note Current Diagnosis Diabetes,Hypertension Other Pertinent Diagnosis UTI Current Diet Cardiac Labs/Tests BG 107 Pertinent Medications Reviewed Height 5 ft 9 in Weight 154 kg [place] Body Weight (kg) 72.72 BMI 50.1 Subjective/Other Information Screened for new onset DM. NPO in place ealier today. Cardiac diet ordered later today. 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 Pt stated that his DM is well controlled. Burn Absent Trauma Absent Nutrition Intervention Revisit per MD consult or patient Sign Off request:
[2018-12-25] MEDS: FEOSOL PO SCH ×3 (03:42→16:46)
[2018-12-25 05:32] VITALS: BP 138/73
--- NOTE | 2018-12-25 10:22 | Progress Note ---
Assessment and Plan Near syncope Anemia Essential hypertension Rhabdomyolysis Non-specific troponin Normal MPI LVEF 45% Recommendations: No further cardiac work-up is needed Outpatient follow-up for a 30 day event recorder will be scheduled Subjective Date of service: 12/25/18 Principal diagnosis: Pre-syncope Interval history: patient denies chest pain or shortness of breath no events on tele Objective Vital Signs Temp Pulse Resp BP BP Pulse Ox 12/25/18 05:28 98.1 F 59 L 18 138/73 100 12/25/18 01:00 58 L 12/24/18 23:46 98.7 F 50 L 20 152/75 98 12/24/18 21:33 99.0 F 62 18 165/74 95 12/24/18 20:00 18 12/24/18 19:51 98.3 F 86 20 158/108 98 12/24/18 19:40 98.1 F 58 L 20 153/71 99 12/24/18 17:32 98.0 F 61 14 156/75 98 12/24/18 13:04 70 12/24/18 11:44 82 128/82 12/24/18 11:43 82 128/66 12/24/18 11:38 128/66 - Physical Examination General: No Apparent Distress HEENT: Positive: PERRL Neck: Positive: neck supple Cardiac: Positive: Reg Rate and Rhythm Lungs: Positive: Normal Exam Neuro: Positive: Grossly Intact Abdomen: Positive: Soft Skin: Positive: Clear Extremities: Absent: edema
[2018-12-25] MEDS: PROSCAR PO SCH (10:30)
[2018-12-25] MEDS: ASPIRIN PO SCH (10:30)
[2018-12-25] MEDS: NORVASC PO SCH (10:30)
[2018-12-25] MEDS: ROCEPHIN/NS 1 GM/50 ML 1 GM/50 ML BAG IV SCH (10:31)
[2018-12-25] MEDS: TOPROL XL PO SCH (10:31)
--- NOTE | 2018-12-25 18:41 | Discharge Summary ---
Providers - Providers Date of Admission: 12/20/18 22:13 Date of discharge: 12/25/18 Attending physician: MINERVA TSANG 12/20/18 20:20 Consult to Physician [CONS] Urgent Comment: Consulting Provider: CARISA MARIA Physician Instructions: Reason For Exam: elevated trop, 12/21/18 01:00 Consult to Physician [CONS] Routine Comment: Consulting Provider: SYDNEY ISRAEL Physician Instructions: Reason For Exam: facial droop for 1 min 12/21/18 09:00 Consult to Wound/ET Nurse [CONS] Routine Reason For Exam: wound eval 12/23/18 19:18 Occupational Therapy Evaluate and Treat [CONS] Routine Comment: Reason For Exam: ADLs evaluation Physical Therapy Evaluation and Treat [CONS] Routine Comment: Reason For Exam: gait evaluation/ambulatory dysfunction 12/23/18 20:19 Speech Therapy Evaluation and Treat [CONS] Routine Reason For Exam: stroke Primary care physician: PRISCILA BELL Hospitalization Condition: Stable Hospital course: Patient is a 78-year-old man with a history of hypertension, diabetes, BPH and Anemia was brought to the emergency room for right facial droop and near syncope. He has chronic lower extremity ulcer that has been after by the wound care nurse * TTE conclusions: right atrium mildly dilated, trace MR, trace TR, mild , mild AR, LV chamber size normal, mild concentric LVH, global LVSF is mildly decreased, EF 45%, abnormal LV diastolic filling c/w impaired relaxation, right ventricle moderately dilated, RV systolic function normal * Bilateral carotid u/s doppler less than 50% stenosis * pCXR no acute findings * CT head without contrast no acute findings * Normal MPI stress test, Negative for stress induced ischemia, low risk study, EF 45% * MRI brain without contrast IMPRESSION: 1. Tiny acute lacunar infarct in the right frontal centrum semiovale. No large cortical infarct. 2. No acute hemorrhage or other acute intracranial abnormality. * Limited view 2d ECHO for bubble study negative Discharge Diagnoses: Right facial droop due to Acute Ischemic stroke: treat with ASA/statin, ordered PT/OT/rehab assessment NSTEMI type 2: consulted Cardiology, stress test negative for ischemia, treat the NICMP Acute combined heart failure, poa: consulted Cardiology, input noted NSVT, 5 beat run this admission: Cardiology following, check electrolytes, Near-syncope: Neurology consulted, input noted, suspect Cardiogenic Rhabdomyolysis Hypertension: low salt diet, treat with antihypertensives Drop in HCT/Hgb, Acute on chronic Anemia With recent transfusion of 3 units of PRBC,not this admission. BPH with UTI: treated with IV rocephin, urine culture was contaminated, home with oral abx to complete 7 day course Diabetes mellitus type 2; ssi, accucheck, ada Chronic Right lower extremity ulcer: consult Wound care DVT ppx; on hold due to drop in HCT/Hbg Disposition: home Disposition: DC-01 TO HOME OR SELFCARE Time spent for discharge: 35 mintues Core Measure Documentation - Palliative Care Palliative Care/ Comfort Measures: Not Applicable - Core Measures Any of the following diagnoses?: none - VTE Discharge Requirements Deep Vein Thrombosis/Pulmonary Embolism Present on Admission: No Has pt received <5 days of overlap therapy or INR<2.0: No Anticoagulant overlap therapy prescribed at discharge: No Contraindication No Overlap Therapy order at DC: Not Indicated Exam - Physical Exam Narrative exam: Gen: WDWN, NAD, Awake, Alert, Orientated HEENT: NCAT, EOMI, PERRL, OP Clear Neck: supple, no adenopathy, no thyromegaly, no JVD CVS/Heart: RRR, normal S1S2, pulses present bilaterally Chest/Lungs: CTA B, Symmetrical chest expansion, good air entry bilaterally GI/Abdomen: soft, NTND, good bowel sounds, no guarding or rebound /Bladder: no suprapubic tenderness, no CVA or paraspinal tenderness Extermity/Skin: no c/c/e, right lower leg ulcer, large venous stasis ulcer, stage 3 at least MSK: FROM x 4 Neuro: CN 2-12 grossly intact, no new focal deficits Psych: calm - Constitutional Vitals: Temp Pulse Resp BP Pulse Ox 98.1 F 59 L 18 138/73 97 12/25/18 05:28 12/25/18 05:28 12/25/18 05:28 12/25/18 05:12/25/18 08:00 Plan Activity: other (no strenous activity until cleared by PCP) Diet: low salt Additional Instructions: call Cardiology for an appointment to get a 30 day event recorder/monitor Follow up with: PRISCILA BELL NP [Primary Care Provider] - 7 Days ANAI CHAN MD [Staff Physician] - 7 Days BLANCA KHAN MD [Staff Physician] - 7 Days Prescriptions: AtorvaSTATin [Lipitor] 40 mg PO QHS #30 tablet Aspirin 325 mg PO QDAY #30 tablet Ciprofloxacin HCl [Ciprofloxacin TAB] 500 mg PO BID #4 tab Metoprolol Xl [Metoprolol SUCCINATE ER TAB] 50 mg PO DAILY #30 tablet
--- NOTE | 2018-12-25 23:43 | Progress Note ---
Assessment and Plan Patient is a 78 y/o man w/ a h/o HTN, pre-diabetes, anemia, who p/w episode described as slumping over for one minute, without loss of consciousness. According to the patient's clinical findings, it is possible that the episode was cardio-genic in nature, as patient has been found to have elevated troponin during this admission. Patient found to have an ischemic stroke on MRI. Patient has also been found to have a UTI, and recently required a blood transfusion for low hemoglobin 2 weeks ago, both of which could have contributed to the change in level of consciousness. Plan: 1. Stroke: - MRI revealed small infarct in Rt. subcortical region, possibly lacunar vs. embolic. - CUS did not reveal any significant stenosis - CTA head did not reveal any significant stenosis. - LDL 78. - Aspirin 81mg daily - Atorvastatin 40mg daily, with LDL goal <70. - Echo: EF 45%, LA normal size, bubble study negative. - Telemetry monitoring while in house. - DVT Ppx: recommend lovenox - Recommend PT/OT/ST - As stroke may be lacunar vs. embolic in origin, would recommend for patient to have heart monitoring done outpatient with either 30-day MCOT or ILR. Recommend follow up with cardiology outpatient in order for this to be done. - Recommend outpatient follow up with neurology after discharge. 2. HTN: - Recommend BP goal of normotension, as it has been >48 hours since symptom onset. 3. Pre-syncope: - Patient had another syncopeal event about 2-3 months ago in which he lost consciousness, per his daughter, however did not recall any loss of bowel/bladder control. - Likely cardiogenic in etiology. Continue workup per primary team/cardiology - EEG: no epileptiform activity 4. UTI: - continue to treat per primary team 5. Elevated troponin: - continue to investigate/manage per cardiology/primary team - Will sign off as I will not be covering neurology service over the weekend. Please consult neurologist covering the weekend tomorrow for further neurologic monitoring/management. Frank Yun MD Neurology Subjective Date of service: 12/25/18 Principal diagnosis: Pre-syncope Interval history: No acute events overnight. Objective - Vital Sign Vital Signs - 12hr 12/25/18 13:00 Pulse Rate 68 - General Apperance Constitutional: comfortable - EENT EENT: ATNC, PERRL, mucous membranes moist, hearing intact, vision intact - Respiratory Respiratory: lungs clear, normal breath sounds - Cardiovascular Cardiovascular: regular rate, normal S1, normal S2 Extremities: no peripheral edema bilat, no clubbing, cyanosis - Gastrointestinal Gastrointestinal: normoactive bowel sounds, soft, non-tender - Integumentary Integumentary: normal - Neurologic Cranial nerve examination: PERRL, EOMI, VFF, V1/V2/V3 grossly intact, face symmetric, tongue midline, intact shoulder shrug Speech examination: intact Detailed motor examination: full strength in all shae Motor examination - right side: 08/30: biceps, triceps, wrist flexion, wrist extension, mobile sales consultant, hip flexors, knee extensors, dorsiflexion, toe extension (EHL), plantarflexion Motor examination - left side: 08/30: biceps, triceps, wrist flexion, wrist extension, mobile sales consultant, hip flexors, knee extensors, dorsiflexion, toe extension (EHL), plantarflexion Detailed sensory examination: intact, light touch Reflex and gait examination: intact Reflexes: 2+: ankle, bicep, knee, tricep Cerebellar examination: other (b/l intact to FTN and HTS) - Musculoskeletal Musculoskeletal: no pain, normal range of motion - Psychiatric Psychiatric: mood/affect appropriate - Laboratory Findings CBC and BMP: 12/24/18 05:55 12/24/18 05:55 Abnormal Lab Findings: Abnormal Labs 12/20/18 12/20/18 12/20/18 18:25 18:30 19:23 RBC 3.31 L Hgb 9.8 L Hct 29.7 L RDW 19.5 H Seg Neutrophils % Seg Neutrophils # Sodium 136 L BUN 30 H Creatinine Glucose 154 H POC Glucose 164 H Total Bilirubin Direct Bilirubin AST 76 H ALT 66 H Total Creatine Kinase 1087 H CK-MB (CK-2) 20.4 H Troponin T 0.116 H* Albumin 3.8 L HDL Cholesterol 62 H Urine WBC (Auto) 12/20/18 12/20/18 12/21/18 21:29 22:35 00:21 RBC Hgb Hct RDW Seg Neutrophils % Seg Neutrophils # Sodium BUN Creatinine Glucose POC Glucose Total Bilirubin Direct Bilirubin AST ALT Total Creatine Kinase CK-MB (CK-2) Troponin T 0.119 H* 0.125 H* Albumin HDL Cholesterol Urine WBC (Auto) 10.0 H 12/21/18 12/21/18 12/21/18 03:53 03:53 03:53 RBC 3.26 L Hgb 9.6 L Hct 29.7 L RDW 19.7 H Seg Neutrophils % 78.6 H Seg Neutrophils # 8.2 H Sodium 134 L BUN 29 H Creatinine Glucose 107 H POC Glucose Total Bilirubin Direct Bilirubin AST ALT Total Creatine Kinase 903 H CK-MB (CK-2) 15.7 H Troponin T 0.131 H* Albumin HDL Cholesterol Urine WBC (Auto) 12/21/18 12/21/18 12/21/18 06:32 10:34 10:34 RBC Hgb 9.8 L Hct 29.5 L RDW Seg Neutrophils % Seg Neutrophils # Sodium BUN Creatinine Glucose POC Glucose Total Bilirubin 1.40 H Direct Bilirubin 0.3 H AST 64 H ALT 57 H Total Creatine Kinase 851 H CK-MB (CK-2) 14.6 H Troponin T 0.150 H* Albumin 3.5 L HDL Cholesterol Urine WBC (Auto) 12/22/18 12/22/18 12/24/18 05:28 05:28 05:55 RBC 2.91 L 3.17 L Hgb 8.6 L 9.3 L Hct 26.3 L 28.4 L RDW 19.2 H 18.9 H Seg Neutrophils % Seg Neutrophils # Sodium 135 L BUN 29 H Creatinine Glucose 107 H POC Glucose Total Bilirubin Direct Bilirubin AST 45 H ALT Total Creatine Kinase CK-MB (CK-2) Troponin T Albumin 3.2 L HDL Cholesterol Urine WBC (Auto) 12/24/18 05:55 RBC Hgb Hct RDW Seg Neutrophils % Seg Neutrophils # Sodium 136 L BUN 23 H Creatinine 0.7 L Glucose 118 H POC Glucose Total Bilirubin Direct Bilirubin AST ALT Total Creatine Kinase CK-MB (CK-2) Troponin T Albumin HDL Cholesterol Urine WBC (Auto)
== END 2018-12-25 21:01 | disposition home or self-care (01) | DRG 64 ==
LOC: ED 17:56 → 4A 22:13
PROVIDERS: ADMIT Internal Medicine; ATTEND Internal Medicine
DX: I63.9 Cerebral infarction, unspecified (principal); I21.A1 Myocardial infarction type 2; I50.41 Acute combined systolic (congestive) and diastolic (congestive) heart failure; N39.0 Urinary tract infection, site not specified; L97.819 Non-pressure chronic ulcer of other part of right lower leg with unspecified severity; M62.82 Rhabdomyolysis; R29.810 Facial weakness; I11.0 Hypertensive heart disease with heart failure; R55 Syncope and collapse; N40.0 Benign prostatic hyperplasia without lower urinary tract symptoms; D64.9 Anemia, unspecified; E11.9 Type 2 diabetes mellitus without complications; Z79.899 Other long term (current) drug therapy; Z82.49 Family history of ischemic heart disease and other diseases of the circulatory system; Z83.3 Family history of diabetes mellitus
CPT/HCPCS: 36415; 70450; 70496; 70551; 71045; 78452; 80048; 80053; 80061; 80076; 81001; 82271; 82550; 82553; 82962; 84439; 84443; 84484; 85014; 85018; 85025; 85027; 85049; 85610; 85670; 85730; 87086; 87116; 93005; 93010; 93017; 93306; 93308; 93321; 93325; 93880; 95819; 96361; 96365; G0378; A9270-GY; A9502; J0360; J0696; J2785; J7030; Q9967

== ENCOUNTER 2019-02-06 11:20 | Inpatient (IN) | payer MEDICARE ==
--- NOTE | 2019-02-06 11:49 | Emergency Department Report ---
ED Syncope HPI - General Chief Complaint: Syncope Stated Complaint: SYNCOPAL EPISODE Time Seen by Provider: 02/06/19 11:46 Source: patient, family - History of Present Illness Initial Comments: 78-year-old -Greek male presents today for syncopal seizure-like episodes x today. Patient states he felt dizzy and then suddenly his arms clenched up and he started shaking. He denies loss of consciousness and states he was able to speak during this episode. His family agrees with this. They state the episode occurred 3 times within a span of 20-30 minutes and lasted about 1 minute each time. He denies any loss of bladder or bowel control or history of seizures. Patient states these episodes are similar to the episodes he had when he was admitted [place] November and diagnosed with a stroke. He denies any numbness, headache, vision changes, tingling, weakness on one side of the body or the other, change in speech, or facial drooping. He states his blood pressure was low upon waking today at 125/40. He denies any chest pain, shortness of breath, palpitations, or other complaints. Timing/Prior Episodes: multiple episodes today Precipitating Factors: Positive: lightheadedness Context: sitting, standing Loss of Consciousness: dazed Current Symptoms: other (fatigued) - Related Data Allergies/Adverse Reactions: Allergies lisinopril Allergy (Verified 02/06/19 11:37) Hives Home Medications: Ambulatory Orders Ferrous Sulfate 324 MG 65 mg PO TID 12/20/18 Finasteride [Proscar] 5 mg PO DAILY 12/20/18 amLODIPine [Norvasc] 10 mg PO DAILY 12/20/18 Acetaminophen [Acetaminophen TAB] 2 tab PO Q4H PRN #15 tablet 12/25/18 Aspirin 325 mg PO QDAY #30 tablet 12/25/18 AtorvaSTATin [Lipitor] 40 mg PO QHS #30 tablet 12/25/18 Chlorthalidone [Thalitone] 25 mg PO QDAY 01/21/19 Metoprolol Xl [Metoprolol SUCCINATE ER TAB] 50 mg PO BID 01/21/19 Telmisartan 40 mg PO QDAY 01/21/19 ED Review of Systems ROS: Stated complaint: SYNCOPAL EPISODE Other details as noted in HPI Constitutional: denies: chills, fever Eyes: denies: eye pain, vision change ENT: denies: hearing loss Respiratory: denies: cough, shortness of breath, SOB with exertion, wheezing Cardiovascular: denies: chest pain, palpitations, dyspnea on exertion, edema, syncope Gastrointestinal: denies: abdominal pain, nausea, vomiting, constipation, hematemesis, melena, hematochezia Musculoskeletal: denies: back pain, joint swelling, arthralgia Skin: denies: rash, lesions Neurological: denies: headache, weakness, numbness, paresthesias, confusion, abnormal gait, vertigo Psychiatric: denies: anxiety, depression ED Past Medical Hx - Past Medical History Hx Hypertension: Yes Hx Congestive Heart Failure: No Hx Diabetes: Yes (diet controlled) Hx Asthma: No Hx COPD: No Additional medical history: Anemia, chronic right leg - Social History Smoking Status: Never Smoker Substance Use Type: None - Medications Home Medications: Home Medications Medication Instructions Recorded Confirmed Last Taken Type Ferrous Sulfate 324 MG 65 mg PO TID 12/20/18 01/21/19 01/21/19 History Finasteride [Proscar] 5 mg PO DAILY 12/20/18 01/21/19 01/21/19 History amLODIPine [Norvasc] 10 mg PO DAILY 12/20/18 01/21/19 01/21/19 History Acetaminophen [Acetaminophen TAB] 2 tab PO Q4H PRN #15 tablet 12/25/18 01/21/19 01/20/19 Rx Aspirin 325 mg PO QDAY #30 tablet 12/25/18 01/21/19 01/21/19 Rx AtorvaSTATin [Lipitor] 40 mg PO QHS #30 tablet 12/25/18 01/21/19 01/21/19 Rx Chlorthalidone [Thalitone] 25 mg PO QDAY 01/21/19 01/21/19 01/21/19 History Metoprolol Xl [Metoprolol 50 mg PO BID 01/21/19 01/21/19 01/21/19 History SUCCINATE ER TAB] Telmisartan 40 mg PO QDAY 01/21/19 01/21/19 01/21/19 History ED Physical Exam - General Limitations: No Limitations General appearance: alert, in no apparent distress - Head Head exam: Present: atraumatic, normocephalic - Eye Eye exam: Present: normal appearance - ENT ENT exam: Present: mucous membranes moist - Neck Neck exam: Present: normal inspection, full ROM. Absent: tenderness - Respiratory Respiratory exam: Present: normal lung sounds bilaterally. Absent: respiratory distress, wheezes, rales, rhonchi, stridor, chest wall tenderness, accessory muscle use, decreased breath sounds - Cardiovascular Cardiovascular Exam: Present: normal rhythm, bradycardia, normal heart sounds. Absent: systolic murmur, diastolic murmur, rubs, gallop - GI/Abdominal GI/Abdominal exam: Present: soft, normal bowel sounds. Absent: distended, tenderness, rigid - Rectal Rectal exam: Present: deferred - Extremities Exam Extremities exam: Present: normal inspection, full ROM. Absent: tenderness, joint swelling, calf tenderness - Back Exam Back exam: Present: normal inspection - Neurological Exam Neurological exam: Present: alert, oriented X3, CN II-XII intact. Absent: motor sensory deficit - Psychiatric Psychiatric exam: Present: normal affect, normal mood - Skin Skin exam: Present: warm, dry, intact, normal color. Absent: rash ED Course Vital Signs 02/06/19 02/06/19 02/06/19 11:30 11:42 11:46 Temperature 98.4 F Pulse Rate 47 L 48 L 48 L Respiratory 17 20 11 L Rate Blood Pressure 151/61 157/68 Blood Pressure 151/61 [Left] O2 Sat by Pulse 97 100 100 Oximetry 02/06/19 02/06/19 02/06/19 12:00 12:23 12:30 Temperature Pulse Rate 50 L 69 48 L Respiratory 11 L 12 10 L Rate Blood Pressure 151/61 152/78 154/63 Blood Pressure [Left] O2 Sat by Pulse 98 Oximetry 02/06/19 02/06/19 02/06/19 12:46 13:00 13:16 Temperature Pulse Rate 51 L 50 L 44 L Respiratory 16 18 16 Rate Blood Pressure 154/63 157/68 145/65 Blood Pressure [Left] O2 Sat by Pulse 100 99 96 Oximetry 02/06/19 02/06/19 02/06/19 13:30 13:46 13:55 Temperature Pulse Rate 44 L 41 L Respiratory 18 15 20 Rate Blood Pressure 145/65 168/71 Blood Pressure [Left] O2 Sat by Pulse 97 100 Oximetry 02/06/19 02/06/19 02/06/19 14:00 14:30 15:00 Temperature Pulse Rate 42 L 42 L 43 L Respiratory 16 16 18 Rate Blood Pressure 172/81 182/73 187/77 Blood Pressure [Left] O2 Sat by Pulse 96 100 Oximetry 02/06/19 02/06/19 02/06/19 15:30 16:00 16:30 Temperature Pulse Rate 44 L 48 L 47 L Respiratory 19 20 14 Rate Blood Pressure 178/86 167/69 161/78 Blood Pressure [Left] O2 Sat by Pulse 99 99 Oximetry 02/06/19 17:00 Temperature Pulse Rate 49 L Respiratory 21 Rate Blood Pressure 170/71 Blood Pressure [Left] O2 Sat by Pulse 97 Oximetry ED Medical Decision Making - Lab Data Result diagrams: 02/06/19 12:57 02/06/19 12:57 - Medical Decision Making Troponin elevated. Heart is bradycardic. Patient continues to deny any complaints aside from fatigue. Discussed patient with Dr. Shell, cardiologyAnn's admission patient to be admitted to hospital via Dr. Pace. Critical care attestation.: If time is entered above; I have spent that time in minutes in the direct care of this critically ill patient, excluding procedure time. ED Disposition Clinical Impression: Elevated troponin, Near syncope Disposition: OP ADMIT IP TO THIS HOSP Is pt being admited?: Yes Condition: Stable
--- NOTE | 2019-02-06 13:07 | Cat Scan Report ---
CT head/brain wo con INDICATION / CLINICAL INFORMATION: 78 years Male; syncopal episode. TECHNIQUE: Routine CT head without contrast. All CT scans at this location are performed using CT dos e reduction for ALARA by means of automated exposure control. COMPARISON: CT scan of the brain from 12/20/2018 FINDINGS: BRAIN / INTRACRANIAL CONTENTS: No acute hemorrhage, mass effect, midline shift, hydrocephalus, or acu te, large territorial infarct. No chronic infarct or focal atrophy. Deep central involution is seen. Periventricular low density areas are seen probably due to microvascular angiopathy. CRANIOCERVICAL JUNCTION: No significant abnormality. ORBITS: No significant abnormality of visualized orbits. SINUSES / MASTOIDS: No significant abnormality of the visualized paranasal sinuses or mastoid air cherelle ls. ADDITIONAL FINDINGS: None. IMPRESSION: I do not see an acute parenchymal lesion. CT findings remain unchanged. Signer Name: Velma Montgomery MD Signed: 02/06/2019 1:03 PM Workstation Name: [id number]
[2019-02-06 13:13] LABS: Bilirubin,Urine NEG (Negative); Blood,Urine NEG (Negative); Color,Urine Yellow (Yellow); Mucus,Urine FEW /HPF; Protein,Urine <15 mg/dL mg/dL (Negative); Urobilinogen,Urine < 2.0 mg/dL (<2.0)
[2019-02-06 13:22] LABS: Basophils % (Auto) 0.8 % (0.0-1.8); Eosinophils # (Auto) 0.1 K/mm3 (0.0-0.4); Eosinophils % (Auto) 1.9 % (0.0-4.3); Hematocrit 33.1 % (35.5-45.6); Hemoglobin 10.8 gm/dl (11.8-15.2); Lymphocytes # (Auto) 0.9 K/mm3 (1.2-5.4); Lymphocytes % (Auto) 15.6 % (13.4-35.0); Mean Corpuscular HGB Conc 33 % (32-34); Mean Corpuscular Volume 95 fl (84-94); Monocytes # (Auto) 0.4 K/mm3 (0.0-0.8); Monocytes % (Auto) 6.1 % (0.0-7.3); Platelet Count 293 K/mm3 (140-440); Red Cell Distribution Width 18.1 % (13.2-15.2)
[2019-02-06 13:35] LABS: Alanine Aminotransferase 49 units/L (7-56); Albumin 4.4 g/dL (3.9-5); BUN/Creatinine Ratio 25; Blood Urea Nitrogen 25 mg/dL (9-20); Calcium 9.6 mg/dL (8.4-10.2); Hemolysis Index 14
[2019-02-06] MEDS ORDERED: ASPIRIN 81 MG TAB CHEW PO ONE (13:53)
[2019-02-06 14:23] LABS: Chol/HDL Ratio 2.08 %
[2019-02-06] MEDS ORDERED: ACETAMINOPHEN 325 MG TAB PO PRN ×2 (21:26→21:28)
--- NOTE | 2019-02-06 21:26 | History and Physical Report ---
History of Present Illness Date of examination: 02/06/19 Date of admission: 02/06/19 15:00 Chief complaint: Near fainting spells x3 History of present illness: 78-year-old -Russian male presents today fornear syncopal like episodes x 3 today. Patient states he felt dizzy and then suddenly his arms clenched up and he started shaking. He denies loss of consciousness and states he was able to speak during this episode. His family agrees with this. They state the episode occurred 3 times within a span of 20-30 minutes and lasted about 1 minute each time. He denies any loss of bladder or bowel control or history of seizures. Patient states these episodes are similar to the episodes he had when he was admitted in November and diagnosed with a stroke. He denies any numbness, headache, vision changes, tingling, weakness on one side of the body or the other, change in speech, or facial drooping. He states his blood pressure was low upon waking today at 125/40. He denies any chest pain, shortness of breath, palpitations, or other complaints. Past Medical History Hypertension: Yes Diabetes: Yes (diet controlled) Additional medical history: Anemia, chronic right leg Social History Smoking Status: Never Smoker Substance Use Type: None Surgical History N/a Family History Htn Medications Home Medications: Home Medications Medication Instructions Recorded Confirmed Last Taken Type Ferrous Sulfate 324 MG 65 mg PO TID 12/20/18 01/21/19 01/21/19 History Finasteride [Proscar] 5 mg PO DAILY 12/20/18 01/21/19 01/21/19 History amLODIPine [Norvasc] 10 mg PO DAILY 12/20/18 01/21/19 01/21/19 History Acetaminophen [Acetaminophen TAB] 2 tab PO Q4H PRN #15 tablet 12/25/18 01/21/19 01/20/19 Rx Aspirin 325 mg PO QDAY #30 tablet 12/25/18 01/21/19 01/21/19 Rx AtorvaSTATin [Lipitor] 40 mg PO QHS #30 tablet 12/25/18 01/21/19 01/21/19 Rx Chlorthalidone [Thalitone] 25 mg PO QDAY 01/21/19 01/21/19 01/21/19 History Metoprolol Xl [Metoprolol 50 mg PO BID 01/21/19 01/21/19 01/21/19 History SUCCINATE ER TAB] Telmisartan 40 mg PO QDAY 01/21/19 01/21/19 01/21/19 History Review of Systems ROS: Stated complaint: SYNCOPAL EPISODE Other details as noted in HPI Constitutional: denies: chills, fever Eyes: denies: eye pain, vision change ENT: denies: hearing loss Respiratory: denies: cough, shortness of breath, SOB with exertion, wheezing Cardiovascular: denies: chest pain, palpitations, dyspnea on exertion, edema, syncope Gastrointestinal: denies: abdominal pain, nausea, vomiting, constipation, hematemesis, melena, hematochezia Musculoskeletal: denies: back pain, joint swelling, arthralgia Skin: denies: rash, lesions Neurological: denies: headache, weakness, numbness, paresthesias, confusion, abnormal gait, vertigo Psychiatric: denies: anxiety, depression Medications and Allergies Allergies Allergy/AdvReac Type Severity Reaction Status Date / Time lisinopril Allergy Hives Verified 02/06/19 11:37 Home Medications Medication Instructions Recorded Confirmed Last Taken Type Ferrous Sulfate 324 MG 65 mg PO TID 12/20/18 02/06/19 01/21/19 History Finasteride [Proscar] 5 mg PO DAILY 12/20/18 02/06/19 01/21/19 History amLODIPine [Norvasc] 10 mg PO DAILY 12/20/18 02/06/19 01/21/19 History Acetaminophen [Acetaminophen TAB] 2 tab PO Q4H PRN #15 tablet 12/25/18 02/06/19 01/20/19 Rx Aspirin 325 mg PO QDAY #30 tablet 12/25/18 02/06/19 01/21/19 Rx AtorvaSTATin [Lipitor] 40 mg PO QHS #30 tablet 12/25/18 02/06/19 01/21/19 Rx Chlorthalidone [Thalitone] 25 mg PO QDAY 01/21/19 02/06/19 01/21/19 History Metoprolol Xl [Metoprolol 50 mg PO BID 01/21/19 02/06/19 01/21/19 History SUCCINATE ER TAB] Telmisartan 40 mg PO QDAY 01/21/19 02/06/19 01/21/19 History Exam - Constitutional Vitals: Temp Pulse Resp BP Pulse Ox 98.0 F 47 L 20 171/74 82 L 02/06/19 19:37 02/06/19 19:37 02/06/19 19:37 02/06/19 19:37 02/06/19 19:37 General appearance: Present: no acute distress, well-nourished - EENT Eyes: Present: PERRL ENT: hearing intact, clear oral mucosa - Neck Neck: Present: supple, normal ROM - Respiratory Respiratory effort: normal Respiratory: bilateral: CTA - Cardiovascular Heart rate: 40 Rhythm: regular Heart Sounds: Present: S1 & S2. Absent: rub, click - Extremities Extremities: no ischemia, pulses intact, pulses symmetrical, No edema Peripheral Pulses: within normal limits - Abdominal General gastrointestinal: Present: soft, non-tender, non-distended, normal bowel sounds Male genitourinary: Present: normal - Rectal Rectal Exam: deferred - Integumentary Integumentary: Present: clear, warm, dry - Musculoskeletal Musculoskeletal: gait normal, strength equal bilaterally - Psychiatric Psychiatric: appropriate mood/affect, intact judgment & insight - Neurologic Neurologic: CNII-XII intact, moves all extremities Results - Labs CBC & Chem 7: 02/07/19 03:45 02/07/19 03:45 Labs: Laboratory Last Values WBC 5.8 K/mm3 (4.5-11.0) 02/06/19 12:57 RBC 3.50 M/mm3 (3.65-5.03) L 02/06/19 12:57 Hgb 10.8 gm/dl (11.8-15.2) L 02/06/19 12:57 Hct 33.1 % (35.5-45.6) L 02/06/19 12:57 MCV 95 fl (84-94) H 02/06/19 12:57 MCH 31 pg (28-32) 02/06/19 12:57 MCHC 33 % (32-34) 02/06/19 12:57 RDW 18.1 % (13.2-15.2) H 02/06/19 12:57 Plt Count 293 K/mm3 (140-440) 02/06/19 12:57 Lymph % (Auto) 15.6 % (13.4-35.0) 02/06/19 12:57 [place] % (Auto) 6.1 % (0.0-7.3) 02/06/19 12:57 Eos % (Auto) 1.9 % (0.0-4.3) 02/06/19 12:57 Baso % (Auto) 0.8 % (0.0-1.8) 02/06/19 12:57 Lymph # 0.9 K/mm3 (1.2-5.4) L 02/06/19 12:57 [place] # 0.4 K/mm3 (0.0-0.8) 02/06/19 12:57 Eos # 0.1 K/mm3 (0.0-0.4) 02/06/19 12:57 Baso # 0.0 K/mm3 (0.0-0.1) 02/06/19 12:57 Seg Neutrophils % 75.6 % (40.0-70.0) H 02/06/19 12:57 Seg Neutrophils # 4.4 K/mm3 (1.8-7.7) 02/06/19 12:57 Sodium 137 mmol/L (137-145) 02/06/19 12:57 Sodium Cancelled 02/06/19 12:57 Potassium 4.5 mmol/L (3.6-5.0) 02/06/19 12:57 Potassium Cancelled 02/06/19 12:57 Chloride 100.6 mmol/L (98-107) 02/06/19 12:57 Chloride Cancelled 02/06/19 12:57 Carbon Dioxide 24 mmol/L (22-30) 02/06/19 12:57 Carbon Dioxide Cancelled 02/06/19 12:57 Anion Gap 17 mmol/L 02/06/19 12:57 Anion Gap Cancelled 02/06/19 12:57 BUN 25 mg/dL (9-20) H 02/06/19 12:57 BUN Cancelled 02/06/19 12:57 Creatinine 1.0 mg/dL (0.8-1.5) 02/06/19 12:57 Creatinine Cancelled 02/06/19 12:57 Estimated GFR > 60 ml/min 02/06/19 12:57 Estimated GFR Cancelled 02/06/19 12:57 BUN/Creatinine Ratio 25 % 02/06/19 12:57 BUN/Creatinine Ratio Cancelled 02/06/19 12:57 Glucose 135 mg/dL (75-100) H 02/06/19 12:57 Glucose Cancelled 02/06/19 12:57 POC Glucose 131 (70-105) H 02/06/19 12:18 Calcium 9.6 mg/dL (8.4-10.2) 02/06/19 12:57 Calcium Cancelled 02/06/19 12:57 Total Bilirubin 1.00 mg/dL (0.1-1.2) 02/06/19 12:57 AST 74 units/L (5-40) H 02/06/19 12:57 ALT 49 units/L (7-56) 02/06/19 12:57 Alkaline Phosphatase 80 units/L (35-129) 02/06/19 12:57 Troponin T 0.136 ng/mL (0.00-0.029) H* 02/06/19 12:57 Total Protein 8.2 g/dL (6.3-8.2) 02/06/19 12:57 Albumin 4.4 g/dL (3.9-5) 02/06/19 12:57 Albumin/Globulin Ratio 1.2 % 02/06/19 12:57 Triglycerides 72 mg/dL (2-149) 02/06/19 12:57 Cholesterol 163 mg/dL (50-199) 02/06/19 12:57 LDL Cholesterol Direct 84 mg/dL (50-130) 02/06/19 12:57 HDL Cholesterol 78 mg/dL (40-59) H 02/06/19 12:57 Cholesterol/HDL Ratio 2.08 % 02/06/19 12:57 Urine Color Yellow (Yellow) 02/06/19 12:30 Urine Turbidity Slightly-cloudy (Clear) 02/06/19 12:30 Urine pH 6.0 (5.0-7.0) 02/06/19 12:30 Ur Specific [place] 1.016 (1.003-1.030) 02/06/19 12:30 Urine Protein <15 mg/dl mg/dL (Negative) 02/06/19 12:30 Urine Glucose (UA) Neg mg/dL (Negative) 02/06/19 12:30 Urine Ketones Neg mg/dL (Negative) 02/06/19 12:30 Urine Blood Neg (Negative) 02/06/19 12:30 Urine Nitrite Neg (Negative) 02/06/19 12:30 Urine Bilirubin Neg (Negative) 02/06/19 12:30 Urine Urobilinogen < 2.0 mg/dL (<2.0) 02/06/19 12:30 Ur Leukocyte Esterase Neg (Negative) 02/06/19 12:30 Urine WBC (Auto) 1.0 /HPF (0.0-6.0) 02/06/19 12:30 Urine RBC (Auto) 1.0 /HPF (0.0-6.0) 02/06/19 12:30 U Epithel Cells (Auto) 1.0 /HPF (0-13.0) 02/06/19 12:30 Urine Mucus Few /HPF 02/06/19 12:30 - Imaging and Cardiology EKG: report reviewed (Sinus Bradycardia HR 0f 40/min) Assessment and Plan Advance Directives: Yes (Full code) VTE prophylaxis?: Chemical Plan of care discussed with patient/family: Yes - Patient Problems (1) NSTEMI (non-ST elevated myocardial infarction) Current Visit: Yes Status: Acute Plan to address problem: Started on IV Heparin drip per protocol (2) Bradycardia Current Visit: Yes Status: Acute Plan to address problem: HR of 40/min Stop Metopreolol--wai blocking agent (3) Near syncope Current Visit: Yes Status: Acute Plan to address problem: Syncope w/u Review last admission (4) HTN (hypertension) Current Visit: No Status: Chronic Qualifiers: Hypertension type: essential hypertension Qualified Code(s): I10 - Essential (primary) hypertension Plan to address problem: Cont Antihypertensives Stop Metoprolol (5) BPH (benign prostatic hyperplasia) Current Visit: Yes Status: Chronic Qualifiers: Lower urinary tract symptom presence: symptoms present Plan to address problem: Cont Proscar (6) DVT prophylaxis Current Visit: Yes Status: Acute Plan to address problem: On IV Heparin and GI prophylaxis
[2019-02-06] MEDS ORDERED: HYDROmorphone 1 MG/1 ML INJ IV PRN (21:28)
[2019-02-06] MEDS ORDERED: ONDANSETRON 4 MG/2 ML INJ IV PRN (21:28)
[2019-02-06] MEDS ORDERED: TELMISARTAN 40 MG PO SCH (21:30)
[2019-02-06] MEDS ORDERED: SODIUM CHLORIDE 0.9% 1000 ML 1,000 ML IV SCH (22:00)
[2019-02-06] MEDS: FAMOTIDINE 20 MG TAB PO SCH (22:30)
[2019-02-06] MEDS: LOSARTAN 50 MG TAB PO SCH (22:31)
[2019-02-06] MEDS: amLODIPine 10 MG TAB PO SCH (22:31)
[2019-02-06] MEDS: FINASTERIDE 5 MG TAB PO SCH (22:36)
[2019-02-07 04:28] LABS: Basophils % (Auto) 0.7 % (0.0-1.8); Eosinophils # (Auto) 0.2 K/mm3 (0.0-0.4); Eosinophils % (Auto) 4.1 % (0.0-4.3); Hematocrit 28.2 % (35.5-45.6); Hemoglobin 9.3 gm/dl (11.8-15.2); Lymphocytes # (Auto) 1.5 K/mm3 (1.2-5.4); Lymphocytes % (Auto) 29.3 % (13.4-35.0); Mean Corpuscular HGB Conc 33 % (32-34); Mean Corpuscular Volume 94 fl (84-94); Monocytes # (Auto) 0.3 K/mm3 (0.0-0.8); Monocytes % (Auto) 6.8 % (0.0-7.3); Platelet Count 261 K/mm3 (140-440); Red Blood Count 3.01 M/mm3 (3.65-5.03); Red Cell Distribution Width 17.7 % (13.2-15.2)
[2019-02-07 04:53] LABS: Alanine Aminotransferase 37 units/L (7-56); Albumin 3.7 g/dL (3.9-5); BUN/Creatinine Ratio 30; Blood Urea Nitrogen 27 mg/dL (9-20); Calcium 8.7 mg/dL (8.4-10.2); Hemolysis Index 4
[2019-02-07] MEDS ORDERED: HEPARIN/ 0.45% NACL DRIP 25,000 UNIT/500 ML BAG IV SCH (08:00)
[2019-02-07] MEDS ORDERED: HEPARIN 10,000 UNITS/10 ML VIAL IV ONE (09:15)
[2019-02-07] MEDS ORDERED: ASPIRIN 325 MG TAB PO SCH (10:00)
[2019-02-07 10:17] LABS: Hematocrit 28.2 % (35.5-45.6); Hemoglobin 9.4 gm/dl (11.8-15.2)
[2019-02-07] MEDS: amLODIPine 10 MG TAB PO SCH (10:40)
[2019-02-07 10:41] LABS: % Iron Saturation 28.1 %
[2019-02-07] MEDS: LOSARTAN 50 MG TAB PO SCH (10:41)
[2019-02-07] MEDS: FINASTERIDE 5 MG TAB PO SCH (10:41)
[2019-02-07] MEDS: FAMOTIDINE 20 MG TAB PO SCH (10:42)
[2019-02-07 10:43] LABS: INR 1.19 (0.87-1.13)
[2019-02-07 10:46] LABS: Partial Thromboplastin Time 30.8 Sec. (24.2-36.6)
--- NOTE | 2019-02-07 11:34 | Consultation ---
History of Present Illness Consult date: 02/07/19 Consult reason: syncope History of present illness: Patient is a 78 yr old who presented to the hospital after a syncopal episode. Patient with history of HTN, lower extremity wound infection was apparent was getting his wound checked. He suddenly felt nausea and almost felt like passing out. When the EMT were called he was noted to be bradycardic with low normal blood pressure. Patient reports he usually checks his BP prior to taking his BOP medications but yesterday he took his meds without checking his BP. Patient was recently in the hospital for syncope and noted to have CVA. At that time too he was noted to have bradycardia aned borderline elevated troponins. Echo with buble study was negative. Stress test reveled fixed inferior defect with no reversible ischemia. Patient reports he followed up as OP and had a monitor done and was told that he did not need a pacemaker. Past History Past Medical History: CAD, hypertension Social history: no significant social history Family history: no significant family history Medications and Allergies Allergies Allergy/AdvReac Type Severity Reaction Status Date / Time lisinopril Allergy Hives Verified 02/06/19 11:37 Home Medications Medication Instructions Recorded Confirmed Last Taken Type Ferrous Sulfate 324 MG 65 mg PO TID 12/20/18 02/06/19 01/21/19 History Finasteride [Proscar] 5 mg PO DAILY 12/20/18 02/06/19 01/21/19 History amLODIPine [Norvasc] 10 mg PO DAILY 12/20/18 02/06/19 01/21/19 History Acetaminophen [Acetaminophen TAB] 2 tab PO Q4H PRN #15 tablet 12/25/18 02/06/19 01/20/19 Rx Aspirin 325 mg PO QDAY #30 tablet 12/25/18 02/06/19 01/21/19 Rx AtorvaSTATin [Lipitor] 40 mg PO QHS #30 tablet 12/25/18 02/06/19 01/21/19 Rx Chlorthalidone [Thalitone] 25 mg PO QDAY 01/21/19 02/06/19 01/21/19 History Metoprolol Xl [Metoprolol 50 mg PO BID 01/21/19 02/06/19 01/21/19 History SUCCINATE ER TAB] Telmisartan 40 mg PO QDAY 01/21/19 02/06/19 01/21/19 History Active Meds: Active Medications Acetaminophen (Tylenol) 650 mg PO Q4H PRN PRN Reason: Pain MILD(1-3)/Fever >100.5/GEORGE Amlodipine Besylate (Norvasc) 10 mg PO DAILY [facility] Last Admin: 02/07/19 10:40 Dose: 10 mg Documented by: Aspirin (Aspirin) 325 mg PO QDAY [facility] Last Admin: 02/07/19 10:41 Dose: 325 mg Documented by: Atorvastatin Calcium (Lipitor) 40 mg PO QHS [facility] Last Admin: 02/06/19 22:31 Dose: 40 mg Documented by: Famotidine (Pepcid) 20 mg PO BID [facility] Last Admin: 02/07/19 10:42 Dose: 20 mg Documented by: Finasteride (Proscar) 5 mg PO DAILY [facility] Last Admin: 02/07/19 10:41 Dose: 5 mg Documented by: Hydromorphone HCl (Dilaudid) 0.5 mg IV Q3H PRN PRN Reason: Pain , Severe (7-10) Sodium Chloride (Nacl 0.9% 1000 Ml) 1,000 mls @ 100 mls/hr IV DIRECT [facility] Stop: 02/07/19 12:00 Last Admin: 02/06/19 22:36 Dose: 100 mls/hr Documented by: Heparin Sodium/Sodium Chloride (Heparin/ 0.45% Nacl-25,000 Unit/500 Ml) 25,000 unit in 500 mls @ 20 mls/hr IV TITRATE [facility]; Protocol Losartan Potassium (Cozaar) 50 mg PO QDAY [facility] Last Admin: 02/07/19 10:41 Dose: 50 mg Documented by: Ondansetron HCl (Zofran) 4 mg IV Q8H PRN PRN Reason: Nausea And Vomiting Sodium Chloride (Sodium Chloride Flush Syringe 10 Ml) 10 ml IV BID [facility] Last Admin: 02/07/19 10:42 Dose: 10 ml Documented by: Sodium Chloride (Sodium Chloride Flush Syringe 10 Ml) 10 ml IV PRN PRN PRN Reason: LINE FLUSH Review of Systems All systems: negative (as mentioned in [facility] H&P) Physical Examination Vital Signs Pulse Resp Pulse Ox 47 L 17 97 02/06/19 11:30 02/06/19 11:30 02/06/19 11:30 General appearance: no acute distress HEENT: Positive: PERRL, Normocephaly Neck: Positive: neck supple Cardiac: Positive: Reg Rate and Rhythm Lungs: Positive: clear to auscultation Neuro: Positive: Grossly Intact Abdomen: Positive: Unremarkable Male genitourinary: Positive: normal Extremities: Present: Other (dressing noted right LE) Results 02/07/19 09:38 02/07/19 03:45 Cardiac Enzymes 02/06/19 02/07/19 Range/Units 12:57 03:45 AST 74 H 56 H (5-40) units/L Coagulation 02/07/19 Range/Units 09:38 PT 14.8 (12.2-14.9) Sec. INR 1.19 H (0.87-1.13) APTT 30.8 (24.2-36.6) Sec. Lipids 02/06/19 Range/Units 12:57 Triglycerides 72 (2-149) mg/dL Cholesterol 163 (50-199) mg/dL HDL Cholesterol 78 H (40-59) mg/dL Cholesterol/HDL Ratio 2.08 % CBC 02/06/19 02/07/19 02/07/19 Range/Units 12:57 03:45 09:38 WBC 5.8 5.1 (4.5-11.0) K/mm3 RBC 3.50 L 3.01 L (3.65-5.03) M/mm3 Hgb 10.8 L 9.3 L 9.4 L (11.8-15.2) gm/dl Hct 33.1 L 28.2 L 28.2 L (35.5-45.6) % Plt Count 293 261 267 (140-440) K/mm3 Lymph # 0.9 L 1.5 (1.2-5.4) K/mm3 [place] # 0.4 0.3 (0.0-0.8) K/mm3 Eos # 0.1 0.2 (0.0-0.4) K/mm3 Baso # 0.0 0.0 (0.0-0.1) K/mm3 Comprehensive Metabolic Panel 02/06/19 02/06/19 02/07/19 Range/Units 12:57 12:57 03:45 Sodium Cancelled 137 137 Potassium Cancelled 4.5 3.9 Chloride Cancelled 100.6 100.8 Carbon Dioxide Cancelled 24 21 L BUN Cancelled 25 H 27 H Creatinine Cancelled 1.0 0.9 Glucose Cancelled 135 H 86 Calcium Cancelled 9.6 8.7 AST 74 H 56 H (5-40) units/L ALT 49 37 (7-56) units/L Alkaline Phosphatase 80 69 (35-129) units/L Total Protein 8.2 6.7 (6.3-8.2) g/dL Albumin 4.4 3.7 L (3.9-5) g/dL EKG interpretations - Telemetry EKG Rhythm: Sinus Bradycardia Assessment and Plan Impression * Presyncope likely vasovagal on top of chronic bradycardia * Chronic elevated troponin with recent negative stress test and absence of symptoms * Recent CVA * HTN * HLP Echo 12/14 EF normal Stress test 12/14 small fixed inferior defect EKG : sinus bradycardia Plan * No further cardiac work up * Still no indication for pacemaker * No further ischemia work up for chronically elevated troponins * OK to DC form cardiac standpoint with OP follow up
--- NOTE | 2019-02-07 13:45 | Discharge Summary ---
Providers - Providers Date of Admission: 02/06/19 15:00 Date of discharge: 02/07/19 Attending physician: PREETHI BUENROSTRO 02/06/19 21:28 Consult to Physician [CONS] Routine Comment: Consulting Provider: AMMY PORTILLO Physician Instructions: Reason For Exam: Syncope 02/07/19 05:05 Consult to Wound/ET Nurse [CONS] Routine Reason For Exam: wound eval, right lower leg wound Primary care physician: CYNDI CHATMAN Hospitalization Condition: Stable Hospital course: Patient is a 78 yr old who presented to the hospital after a syncopal episode. Patient with history of HTN, lower extremity wound infection was apparent was getting his wound checked. He suddenly felt nausea and almost felt like passing out. When the EMT were called he was noted to be bradycardic with low normal blood pressure. Patient reports he usually checks his BP prior to taking his BOP medications but yesterday he took his meds without checking his BP. Patient was recently in the hospital for syncope and noted to have CVA. At that time too he was noted to have bradycardia aned borderline elevated troponins. Echo with buble study was negative. Stress test reveled fixed inferior defect with no reversible ischemia. Patient reports he followed up as OP and had a monitor done and was told that he did not need a pacemaker. Patient was admitted to the hospital for further monitoring, CT head in the ER was unremarkable and showed no change compared to prior one. Cardiology was consulted and recommended no further cardiac workup and outpatient follow-up. Patient was discharged home in stable condition, he'll follow up with his power system operator in 1 week. Echo 12/14 EF normal Stress test 12/14 small fixed inferior defect EKG : sinus bradycardia CT head: no acute parenchymal lesion. CT findings remain unchanged from prior. Discharge diagnosis: * Presyncope likely vasovagal on top of chronic bradycardia, held BB - metoprolol on admission * Chronic elevated troponin with recent negative stress test and absence of symptoms - ruled out NSTEMI by cardiology, d/robert heparin drip * Recent CVA - no acute change * HTN, stable * HLP, cont statin * BPH, outpt f/u Disposition: DC/TX-06 HOME UNDER HOME HL Time spent for discharge: 34 minutes Core Measure Documentation - Palliative Care Palliative Care/ Comfort Measures: Not Applicable - Core Measures Any of the following diagnoses?: history only Exam - Constitutional Vitals: Temp Pulse Resp BP Pulse Ox 98.7 F 54 L 20 146/68 96 02/07/19 04:02 02/07/19 04:02 02/07/19 04:02 02/07/19 04:02 02/07/19 04:02 General appearance: Present: no acute distress, well-nourished - EENT Eyes: Present: PERRL ENT: hearing intact, clear oral mucosa - Neck Neck: Present: supple, normal ROM - Respiratory Respiratory effort: normal Respiratory: bilateral: CTA - Cardiovascular Heart Sounds: Present: S1 & S2. Absent: rub, click - Extremities Extremities: pulses symmetrical, No edema Peripheral Pulses: within normal limits - Abdominal General gastrointestinal: Present: soft, non-tender, non-distended, normal bowel sounds - Integumentary Integumentary: Present: clear, warm, dry - Musculoskeletal Musculoskeletal: gait normal, strength equal bilaterally - Psychiatric Psychiatric: appropriate mood/affect, intact judgment & insight - Neurologic Neurologic: CNII-XII intact, moves all extremities Plan Activity: advance as tolerated Weight Bearing Status: Weight Bear as Tolerated Diet: low fat, low salt Special Instructions: record daily BP diary Follow up with: CYNDI CHATMAN MD [Primary Care Provider] - 3-5 Days Prescriptions: Losartan [Cozaar] 50 mg PO QDAY #30 tablet Finasteride [Proscar] 5 mg PO DAILY #30 Telmisartan 40 mg PO QDAY #30
[2019-02-07 18:19] VITALS: BP 153/73
== END 2019-02-07 18:28 | disposition home health service (06) | DRG 312 ==
LOC: ED 11:20 → 3A 15:00 → 4A 17:03
PROVIDERS: ADMIT Internal Medicine; ATTEND Internal Medicine
DX: R55 Syncope and collapse (principal); I10 Essential (primary) hypertension; R00.1 Bradycardia, unspecified; R79.89 Other specified abnormal findings of blood chemistry; E78.5 Hyperlipidemia, unspecified; N40.0 Benign prostatic hyperplasia without lower urinary tract symptoms; D64.9 Anemia, unspecified; I25.10 Atherosclerotic heart disease of native coronary artery without angina pectoris; Z86.73 Personal history of transient ischemic attack (TIA), and cerebral infarction without residual deficits; Z82.49 Family history of ischemic heart disease and other diseases of the circulatory system; Z79.899 Other long term (current) drug therapy; Z79.82 Long term (current) use of aspirin
CPT/HCPCS: 36415; 70450; 80053; 80061; 81001; 82607; 82747; 82962; 83036; 83550; 84484; 85014; 85018; 85025; 85049; 85610; 85730; 93005; 93010; 96360; 96361; G0378; A9270-GY; J1644; J7030

== ENCOUNTER 2019-12-19 14:16 | Inpatient (IN) | payer MEDICARE ==
--- NOTE | 2019-12-19 14:49 | Emergency Department Report ---
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 Patient states he did extensive housework today. Afterwards he sat down and began to feel very lightheaded, had generalized weakness, and became diaphoretic. He denies headache, chest pain, shortness of breath, abdominal pain, nausea, or vomiting. Upon EMS arrival they found him in a narrow complex bradycardic rhythm 30-32 and a systolic pressure of 60. Patient received a total of atropine 1 mg IV and 300 of normal saline with improvement of heart rate to the 50s and pressure of 120/82. Patient currently presents to the ED feeling better and is currently asymptomatic. He is compliant with his medications. Amongst his medications he takes carvedilol 6.25 mg and nifedipine 60 mg (times per day dosing of medication unknown). Patient also takes furosemide 40 mg, oxybutynin 5 mg, finasteride 5 mg, atorvastatin 40 mg, ferrous sulfate 325 mg, and telmisartan 80 mg. EMS EKG was reviewed and appeared to be a bradycardic rhythm without consistent P waves before every QRS.. 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 As per medical record review patient was admitted here in January 2019 with a similar presentation of near syncope, bradycardia, and borderline hypotension January 2019 discharge summary as below Patient is a 78 yr old who presented to the hospital after a syncopal episode. Patient with history of HTN, lower extremity wound infection was apparent was getting his wound checked. He suddenly felt nausea and almost felt like passing out. When the EMT were called he was noted to be bradycardic with low normal blood pressure. Patient reports he usually checks his BP prior to taking his BOP medications but yesterday he took his meds without checking his BP. Patient was recently in the hospital for syncope and noted to have CVA. At that time too he was noted to have bradycardia aned borderline elevated troponins. Echo with buble study was negative. Stress test reveled fixed inferior defect with no reversible ischemia. Patient reports he followed up as OP and had a monitor done and was told that he did not need a pacemaker. Patient was admitted to the hospital for further monitoring, CT head in the ER was unremarkable and showed no change compared to prior one. Cardiology was consulted and recommended no further cardiac workup and outpatient follow-up. Patient was discharged home in stable condition, he'll follow up with his chief medical physicist in 1 week. Echo 12/14 EF normal Stress test 12/14 small fixed inferior defect EKG : sinus bradycardia CT head: no acute parenchymal lesion. CT findings remain unchanged from prior. Discharge diagnosis: * Presyncope likely vasovagal on top of chronic bradycardia, held BB - metoprolol on admission * Chronic elevated troponin with recent negative stress test and absence of symptoms - ruled out NSTEMI by cardiology, d/robert heparin drip * Recent CVA - no acute change * HTN, stable * HLP, cont statin * BPH, outpt f/u - Related Data Home Medications Medication Instructions Recorded Confirmed Last Taken Ferrous Sulfate 324 MG 65 mg PO TID 12/20/18 02/06/19 01/21/19 amLODIPine 10 mg PO DAILY 12/20/18 02/06/19 01/21/19 Previous Rx's Medication Instructions Recorded Last Taken Type Acetaminophen [Acetaminophen TAB] 2 tab PO Q4H PRN #15 tablet 12/25/18 01/20/19 Rx Aspirin 325 mg PO QDAY #30 tablet 12/25/18 01/21/19 Rx AtorvaSTATin [Lipitor] 40 mg PO QHS #30 tablet 12/25/18 01/21/19 Rx Finasteride [Proscar] 5 mg PO DAILY #30 02/07/19 Unknown Rx Losartan [Cozaar] 50 mg PO QDAY #30 tablet 02/07/19 Unknown Rx Telmisartan 40 mg PO QDAY #30 02/07/19 Unknown Rx Allergies Allergy/AdvReac Type Severity Reaction Status Date / Time lisinopril Allergy Hives Verified 02/06/19 11:37 ED Review of Systems ROS: Stated complaint: BRADYCARDIA Other details as noted in HPI Comment: All other systems reviewed and negative ED Past Medical Hx - Past Medical History Hx Hypertension: Yes Hx Congestive Heart Failure: No Hx Diabetes: Yes (diet controlled) Hx Asthma: No Hx COPD: No Additional medical history: Anemia, chronic right leg - Social History Smoking Status: Never Smoker - Medications Home Medications: Home Medications Medication Instructions Recorded Confirmed Last Taken Type Ferrous Sulfate 324 MG 65 mg PO TID 12/20/18 02/06/19 01/21/19 History amLODIPine 10 mg PO DAILY 12/20/18 02/06/19 01/21/19 History Acetaminophen [Acetaminophen TAB] 2 tab PO Q4H PRN #15 tablet 12/25/18 02/06/19 01/20/19 Rx Aspirin 325 mg PO QDAY #30 tablet 12/25/18 02/06/19 01/21/19 Rx AtorvaSTATin [Lipitor] 40 mg PO QHS #30 tablet 12/25/18 02/06/19 01/21/19 Rx Finasteride [Proscar] 5 mg PO DAILY #30 02/07/19 Unknown Rx Losartan [Cozaar] 50 mg PO QDAY #30 tablet 02/07/19 Unknown Rx Telmisartan 40 mg PO QDAY #30 02/07/19 Unknown Rx ED Physical Exam - General Limitations: No Limitations - Other Other exam information: General: No acute distress Head: Atraumatic Eyes: normal appearance ENT: Moist mucous membranes Neck: Normal appearance, no midline tenderness Chest: Clear to auscultation bilaterally CV: Bradycardic regular rhythm Abdomen: Soft, normal bowel sounds, nontender, nondistended, no rebound or guarding Back: Normal inspection Extremity: Normal inspection, full range of motion Neuro: Alert O x 3, no facial asymmetry, speech clear, no gross motor sensory deficit Psych: Appropriate behavior Skin: No rash ED Course Vital Signs 12/19/19 12/19/19 12/19/19 14:35 14:45 14:49 Temperature 98.1 F Pulse Rate 93 H 47 L 49 L Respiratory 17 19 17 Rate Blood Pressure 141/68 Blood Pressure 141/68 [Right] O2 Sat by Pulse 100 100 Oximetry 12/19/19 12/19/19 12/19/19 14:55 15:01 15:15 Temperature Pulse Rate 43 L 43 L Respiratory 18 15 15 Rate Blood Pressure 158/73 158/73 Blood Pressure [Right] O2 Sat by Pulse 100 99 Oximetry 12/19/19 12/19/19 15:31 15:45 Temperature Pulse Rate 45 L 52 L Respiratory 13 14 Rate Blood Pressure 144/81 144/81 Blood Pressure [Right] O2 Sat by Pulse 99 99 Oximetry - Consultations Consultation #1: 12/19/19 16:03 case d/w Dr Fields, EMS and ED ekg reviewed. Rec hold beta blockers, air sampling and monitoring with pacing pads at beside and admission. Will consult ED Medical Decision Making - Lab Data Result diagrams: 12/19/19 14:37 12/19/19 14:37 Lab Results 12/19/19 12/19/19 Range/Units 14:37 14:37 WBC 6.9 (4.5-11.0) K/mm3 RBC 3.89 (3.65-5.03) M/mm3 Hgb 12.0 (11.8-15.2) gm/dl Hct 35.4 L (35.5-45.6) % MCV 91 (84-94) fl MCH 31 (28-32) pg MCHC 34 (32-34) % RDW 17.0 H (13.2-15.2) % Plt Count 209 (140-440) K/mm3 Lymph % (Auto) 25.0 (13.4-35.0) % [place] % (Auto) 8.6 H (0.0-7.3) % Eos % (Auto) 1.0 (0.0-4.3) % Baso % (Auto) 0.7 (0.0-1.8) % Lymph # 1.7 (1.2-5.4) K/mm3 [place] # 0.6 (0.0-0.8) K/mm3 Eos # 0.1 (0.0-0.4) K/mm3 Baso # 0.0 (0.0-0.1) K/mm3 Seg Neutrophils % 64.7 (40.0-70.0) % Seg Neutrophils # 4.5 (1.8-7.7) K/mm3 Sodium 138 (137-145) mmol/L Potassium 4.4 (3.6-5.0) mmol/L Chloride 102.0 (98-107) mmol/L Carbon Dioxide 23 (22-30) mmol/L Anion Gap 17 mmol/L BUN 36 H (9-20) mg/dL Creatinine 1.5 H (0.8-1.3) mg/dL Estimated GFR 55 ml/min BUN/Creatinine Ratio 24 % Glucose 137 H (75-100) mg/dL Calcium 9.4 (8.4-10.2) mg/dL Magnesium 2.20 (1.7-2.3) mg/dL Total Bilirubin 0.70 (0.1-1.2) mg/dL AST 38 (5-40) units/L ALT 26 (7-56) units/L Alkaline Phosphatase 73 (35-129) units/L Troponin T 0.069 H (0.00-0.029) ng/mL NT-Pro-B Natriuret Pep 745.1 (0-900) pg/mL Total Protein 7.3 (6.3-8.2) g/dL Albumin 4.0 (3.9-5) g/dL Albumin/Globulin Ratio 1.2 % - EKG Data -: EKG Interpreted by Me EKG shows normal: sinus rhythm Rate: bradycardia (53) - Radiology Data Radiology results: report reviewed CHEST 1 VIEW INDICATION: BRADYCARDIA, NEAR SYNCOPE. COMPARISON: None. FINDINGS: Support devices: None. Heart: Upper limits of normal Lungs/Pleura: No acute pulmonary or pleural findings. IMPRESSION: 1. No acute findings. - Medical Decision Making Patient had episode of near syncope related to symptomatic bradycardia and hypotension. Patient had significant improvement in symptoms after atropine 1 mg and IV fluids. Patient has received a total of 1 L normal saline during ED stay and has remained normotensive, asymptomatic, with a heart rate in the 50s. Case discussed with Dr. Fields and EKG reviewed. He Suggests diagnosis of sick sinus syndrome and that patient should not be on any beta-blockers. Carvedilol is one of his current medications which should be discontinued. Recommends continue cardiac monitoring with patient at the bedside and admission for observation and cardiology consultation. Critical Care Time: No Critical care attestation.: If time is entered above; I have spent that time in minutes in the direct care of this critically ill patient, excluding procedure time. ED Disposition Clinical Impression: Symptomatic bradycardia, Near syncope, Elevated troponin, HTN (hypertension) Disposition: OP ADMIT IP TO THIS HOSP Is pt being admited?: Yes Condition: Stable Time of Disposition: 16:12 (Dr Soria/hosp)
[2019-12-19 14:56] LABS: Basophils % (Auto) 0.7 % (0.0-1.8); Eosinophils # (Auto) 0.1 K/mm3 (0.0-0.4); Hematocrit 35.4 % (35.5-45.6); Lymphocytes # (Auto) 1.7 K/mm3 (1.2-5.4); Mean Corpuscular HGB Conc 34 % (32-34); Mean Corpuscular Volume 91 fl (84-94); Monocytes # (Auto) 0.6 K/mm3 (0.0-0.8); Monocytes % (Auto) 8.6 % (0.0-7.3); Platelet Count 209 K/mm3 (140-440); Red Blood Count 3.89 M/mm3 (3.65-5.03)
--- NOTE | 2019-12-19 15:08 | XRay Report ---
CHEST 1 VIEW INDICATION: BRADYCARDIA, NEAR SYNCOPE. COMPARISON: None. FINDINGS: Support devices: None. Heart: Upper limits of normal Lungs/Pleura: No acute pulmonary or pleural findings. IMPRESSION: 1. No acute findings. Signer Name: Bro Araujo MD Signed: 12/19/2019 3:04 PM Workstation Name: [id number]
[2019-12-19 15:13] LABS: Calcium 9.4 mg/dL (8.4-10.2)
[2019-12-19 15:19] LABS: Free T4 (Free Thyroxine) 0.99 ng/dL (0.76-1.46)
[2019-12-19] MEDS ORDERED: ASPIRIN 325 MG TAB PO ONE (15:48)
--- NOTE | 2019-12-19 16:30 | History and Physical Report ---
History of Present Illness Chief complaint: I felt like I was going to pass out History of present illness: 79 YO Male with DM, HTN, CHF, CVA, Cerebral Atherosclerosis presents to ED for evaluation. Patient states that he was in his usual state of health today and was doing housework at his home. Patient states that he experienced a sudden onset of dizziness, lightheadedness, and generalized weakness, and diaphoresis. Patient states "I felt like I was going to pass out". EMS was notified and upon arrival the patient was found to be in distress. The patient was found to have EKG abnormalities. Patient was found to be bradycardic with a heart rate of between 30 and 32 bpm. Patient was also found to have systolic blood pressure in the 60s. Patient was treated with atropine 1 mg as well as IV fluid resus citation therapy with improvement in symptoms. Patient subsequently transported to [facility] for further care and evaluation of the aforementioned symptoms. Patient seen and evaluated in the emergency department. Lab and imaging studies reviewed. Patient found to have clinical findings suggestive of sick sinus syndrome, as well as acute kidney injury. Patient admitted to telemetry and treated with IV fluid resuscitation therapy, as well as discontinuation of all wai blocking antihypertensive agents. External pacing pads placed in the emergency department prior to transport to telemetry. Cardiology team consulted in ED. Patient denies fever, chills, chest pain, palpitation, productive cough, skin rash, recent ill contacts, or known exposure to COVID-19. Prior admission on 02/06/2019 reviewed. All medication listed at time of admission has been reconciled. Advanced care planning conducted in ED. Past History Past Medical History: diabetes, hypertension Past Surgical History: No surgical history, Other (Reviewed) Social history: single. denies: smoking, alcohol abuse, prescription drug abuse Family history: hypertension Medications and Allergies Allergies Allergy/AdvReac Type Severity Reaction Status Date / Time lisinopril Allergy Hives Verified 02/06/19 11:37 Home Medications Medication Instructions Recorded Confirmed Last Taken Type Ferrous Sulfate 324 MG 325 mg PO TID 12/20/18 12/19/19 01/21/19 History AtorvaSTATin [Lipitor] 40 mg PO QHS #30 tablet 12/25/18 12/19/19 01/21/19 Rx Finasteride [Proscar] 5 mg PO DAILY #30 02/07/19 12/19/19 Unknown Rx Furosemide [Lasix TAB] 40 mg PO QDAY 12/19/19 12/19/19 Unknown History Oxybutynin [Ditropan] 5 mg PO BID 12/19/19 12/19/19 Unknown History Telmisartan 80 mg PO QDAY 12/19/19 12/19/19 Unknown History carvediloL [Coreg] 6.25 mg PO BID 12/19/19 12/19/19 Unknown History Review of Systems Constitutional: weakness, no weight loss, no weight gain, no fever, no chills Ears, nose, mouth and throat: no ear pain, no ear discharge, no tinnitis, no decreased hearing, no nose pain, no nasal congestion Cardiovascular: lightheadedness, no chest pain, no orthopnea, no palpitations, no rapid/irregular heart beat, no edema Respiratory: no cough, no cough with sputum, no excessive sputum, no hemoptysis, no shortness of breath Gastrointestinal: no abdominal pain, no nausea, no vomiting, no diarrhea, no constipation Genitourinary Male: no hematuria, no flank pain, no discharge, no urinary frequency, no urinary hesitancy Rectal: no pain, no incontinence, no bleeding Musculoskeletal: no neck stiffness, no neck pain, no shooting arm pain, no arm numbness/tingling, no shooting leg pain, no leg numbness/tingling Integumentary: no rash, no pruritis, no redness, no sores, no wounds, no jaundice Neurological: no head injury, no transient paralysis, no paralysis, no parathesias, no numbness, no tingling, no seizures Psychiatric: no memory loss, no change in sleep habits, no sleep disturbances, no insomnia, no hypersomnia, no change in appetite, no change in libido Endocrine: no cold intolerance, no heat intolerance, no polyphagia, no excessive thirst, no polydipsia, no polyuria, no nocturia Hematologic/Lymphatic: no easy bruising, no easy bleeding Allergic/Immunologic: no allergic rhinitis, no wheezing Exam - Constitutional Vitals: Temp Pulse Resp BP Pulse Ox 98.1 F 52 L 14 144/81 99 12/19/19 14:49 12/19/19 15:45 12/19/19 15:45 12/19/19 15:45 12/19/19 15:45 General appearance: Present: mild distress - EENT Eyes: Present: PERRL ENT: hearing intact, clear oral mucosa - Neck Neck: Present: supple, normal ROM - Respiratory Respiratory effort: normal Respiratory: bilateral: CTA - Cardiovascular Rhythm: other (Sinus bradycardia) Heart Sounds: Present: S1 & S2. Absent: rub, click - Extremities Extremities: pulses symmetrical, No edema Peripheral Pulses: within normal limits - Abdominal General gastrointestinal: Present: soft, non-tender, non-distended, normal bowel sounds Male genitourinary: Present: normal - Integumentary Integumentary: Present: clear, warm, dry - Musculoskeletal Musculoskeletal: gait normal, strength equal bilaterally - Psychiatric Psychiatric: appropriate mood/affect, intact judgment & insight - Neurologic Neurologic: CNII-XII intact, moves all extremities HEART Score - HEART Score Troponin: Troponin T 0.069 ng/mL (0.00-0.029) H 12/19/19 14:37 Results - Labs CBC & Chem 7: 12/19/19 14:37 12/19/19 14:37 Labs: Abnormal lab results 12/19/19 12/19/19 Range/Units 14:37 14:37 Hct 35.4 L (35.5-45.6) % RDW 17.0 H (13.2-15.2) % [place] % (Auto) 8.6 H (0.0-7.3) % BUN 36 H (9-20) mg/dL Creatinine 1.5 H (0.8-1.3) mg/dL Glucose 137 H (75-100) mg/dL Troponin T 0.069 H (0.00-0.029) ng/mL Assessment and Plan - Patient Problems (1) Sick sinus syndrome Current Visit: Yes Status: Acute Plan to address problem: Cardiology team consulted in ED, admit to telemetry, remote telemetry monitoring, external pacer pads placed, avoid wai blocking agents, supportive care. (2) Acute kidney injury (PILAR) with acute tubular necrosis (ATN) Current Visit: Yes Status: Acute Plan to address problem: IV fluid resuscitation therapy, BMP, repeat BMP in a.m. Monitor urine output every shift (3) Hypertension Current Visit: Yes Status: Acute Qualifiers: Hypertension type: essential hypertension Qualified Code(s): I10 - Essential (primary) hypertension Plan to address problem: Monitor blood pressure every shift. Continue medical management. Discontinue wai blocking antihypertensive therapy. (4) DVT prophylaxis Current Visit: No Status: Acute Plan to address problem: SCD to bilateral lower extremities while in bed, patient is ambulatory (5) Advance care planning Current Visit: Yes Status: Acute Plan to address problem: Disease education conducted, patient is full code, patient prognosis discussed, patient acknowledges understanding and agreement with care plan, +30 minutes.
[2019-12-19] MEDS ORDERED: ACETAMINOPHEN 325 MG TAB PO PRN (16:33)
[2019-12-19] MEDS ORDERED: ONDANSETRON 4 MG/2 ML INJ IV PRN (16:33)
[2019-12-19] MEDS ORDERED: ALBUTEROL 2.5 MG/3 ML NEBU IH PRN (16:33)
[2019-12-19 16:52] LABS: Chol/HDL Ratio 2.47 %
[2019-12-20 06:12] LABS: BUN/Creatinine Ratio 27; Blood Urea Nitrogen 30 mg/dL (9-20); Hemolysis Index 8
--- NOTE | 2019-12-20 11:37 | Consultation ---
History of Present Illness Consult date: 12/20/19 Consult reason: bradycardia History of present illness: 79yr old male brought in with near syncope. Patient reports feeling dizzy, fatigue with diaphoresis nearly passing out. EMS was called he was noted to marked sinus bradycardia, rate 32 with low blood pressure. Treated with atropine en route. An repeat ECG on presentation is sinus bradycardia with LVH and PACs. Heart rate 40. Blood pressure 141, systolic. Home medications list the patient takes carvedilol 6.25 mg twice daily which has been discontinued. TSH and serum magnesium is normal. Of note, a year ago the patient was hospitalized with syncope and CVA. At that time his ECG was marked sinus bradycardia, heart rate . Echo showed a left ventricular ejection fraction 45% with negative bubble study. Stress test reveled fixed inferior defect with no reversible ischemia. Patient followed up as an outpatient and wore an event monitor and was told that he did not need a pacemaker. Past History Past Medical History: diabetes, hypertension Past Surgical History: No surgical history, Other (Reviewed) Social history: single. denies: smoking, alcohol abuse, prescription drug abuse Family history: hypertension Medications and Allergies Allergies Allergy/AdvReac Type Severity Reaction Status Date / Time lisinopril Allergy Hives Verified 02/06/19 11:37 Home Medications Medication Instructions Recorded Confirmed Last Taken Type Ferrous Sulfate 324 MG 325 mg PO TID 12/20/18 12/19/19 01/21/19 History AtorvaSTATin [Lipitor] 40 mg PO QHS #30 tablet 12/25/18 12/19/19 01/21/19 Rx Finasteride [Proscar] 5 mg PO DAILY #30 02/07/19 12/19/19 Unknown Rx Furosemide [Lasix TAB] 40 mg PO QDAY 12/19/19 12/19/19 Unknown History Oxybutynin [Ditropan] 5 mg PO BID 12/19/19 12/19/19 Unknown History Telmisartan 80 mg PO QDAY 12/19/19 12/19/19 Unknown History carvediloL [Coreg] 6.25 mg PO BID 12/19/19 12/19/19 Unknown History Active Meds: Active Medications Acetaminophen (Tylenol) 650 mg PO Q4H PRN PRN Reason: Pain MILD(1-3)/Fever >100.5/GEORGE Albuterol (Proventil) 2.5 mg IH Q4H PRN PRN Reason: Shortness Of Breath Ondansetron HCl (Zofran) 4 mg IV Q8H PRN PRN Reason: Nausea And Vomiting Sodium Chloride (Sodium Chloride Flush Syringe 10 Ml) 10 ml IV BID OLIVIER Last Admin: 12/19/19 23:08 Dose: 10 ml Documented by: Sodium Chloride (Sodium Chloride Flush Syringe 10 Ml) 10 ml IV PRN PRN PRN Reason: LINE FLUSH Physical Examination Vital Signs Pulse Resp 93 H 17 12/19/19 14:35 12/19/19 14:35 General appearance: no acute distress HEENT: Positive: PERRL Neck: Positive: trachea midline Cardiac: Positive: Bradycardia Lungs: Positive: Decreased Breath Sounds Results 12/19/19 14:37 12/20/19 04:58 Cardiac Enzymes 12/19/19 Range/Units 14:37 AST 38 (5-40) units/L Lipids 12/19/19 Range/Units 14:37 Triglycerides 58 (2-149) mg/dL Cholesterol 156 (50-199) mg/dL HDL Cholesterol 63 H (40-59) mg/dL Cholesterol/HDL Ratio 2.47 % CBC 12/19/19 Range/Units 14:37 WBC 6.9 (4.5-11.0) K/mm3 RBC 3.89 (3.65-5.03) M/mm3 Hgb 12.0 (11.8-15.2) gm/dl Hct 35.4 L (35.5-45.6) % Plt Count 209 (140-440) K/mm3 Lymph # 1.7 (1.2-5.4) K/mm3 [place] # 0.6 (0.0-0.8) K/mm3 Eos # 0.1 (0.0-0.4) K/mm3 Baso # 0.0 (0.0-0.1) K/mm3 Comprehensive Metabolic Panel 12/19/19 12/20/19 Range/Units 14:37 04:58 Sodium 138 140 (137-145) mmol/L Potassium 4.4 3.7 (3.6-5.0) mmol/L Chloride 102.0 101.7 (98-107) mmol/L Carbon Dioxide 23 24 (22-30) mmol/L BUN 36 H 30 H (9-20) mg/dL Creatinine 1.5 H 1.1 (0.8-1.3) mg/dL Glucose 137 H 99 (75-100) mg/dL Calcium 9.4 9.0 (8.4-10.2) mg/dL AST 38 (5-40) units/L ALT 26 (7-56) units/L Alkaline Phosphatase 73 (35-129) units/L Total Protein 7.3 (6.3-8.2) g/dL Albumin 4.0 (3.9-5) g/dL Assessment and Plan - Patient Problems (1) Bradycardia Current Visit: No Status: Acute
[2019-12-20] MEDS: NIFEdipine XL 60 MG TAB PO SCH (18:52)
--- NOTE | 2019-12-20 20:54 | Progress Note ---
Assessment and Plan - Patient Problems (1) Sick sinus syndrome Current Visit: Yes Status: Acute Plan to address problem: Cardiology team consulted, admit to telemetry, remote telemetry monitoring, external pacer pads placed, avoid wai blocking agents, supportive care, continue telemetry monitoring overnight. Discharge planning in a.m if no overnight events. Electrophysiology evaluation as per cardiology team.. (2) Acute kidney injury (PILAR) with acute tubular necrosis (ATN) Current Visit: Yes Status: Acute Plan to address problem: IV fluid resuscitation therapy, BMP, repeat BMP in a.m. Monitor urine output every shift (3) Hypertension Current Visit: Yes Status: Acute Qualifiers: Hypertension type: essential hypertension Qualified Code(s): I10 - Essential (primary) hypertension Plan to address problem: Monitor blood pressure every shift. Continue medical management. Discontinue wai blocking antihypertensive therapy. (4) DVT prophylaxis Current Visit: No Status: Acute Plan to address problem: SCD to bilateral lower extremities while in bed, patient is ambulatory (5) Advance care planning Current Visit: Yes Status: Acute Plan to address problem: Disease education conducted, patient is full code, patient prognosis discussed, patient acknowledges understanding and agreement with care plan, +30 minutes. History Interval history: 79 YO Male HD #2 with suspected SSS, PILAR, CHF, CVA, Cerebral Atherosclerosis. Patient resting comfortably in bed. Patient denies fever, chills, chest pain, palpitations, productive cough, syncope, loss of consciousness. No reported nursing events. Hospitalist Physical - Constitutional Vitals: Temp Pulse Resp BP Pulse Ox 98.2 F 38 L 17 167/66 96 12/20/19 16:23 12/20/19 16:23 12/20/19 16:23 12/20/19 16:23 12/20/19 16:23 General appearance: Present: no acute distress - EENT Eyes: Present: PERRL, EOM intact ENT: hearing intact - Neck Neck: Present: supple - Respiratory Respiratory effort: normal Respiratory: bilateral: CTA - Cardiovascular Rhythm: other (Sinus bradycardic episodes) Heart Sounds: Present: S1 & S2 - Extremities Extremities: no ischemia Peripheral Pulses: within normal limits - Abdominal General gastrointestinal: soft, non-tender, non-distended - Integumentary Integumentary: Present: clear, dry - Psychiatric Psychiatric: appropriate mood/affect, cooperative - Neurologic Neurologic: CNII-XII intact HEART Score - HEART Score Troponin: Troponin T 0.055 ng/mL (0.00-0.029) H D 12/19/19 22:34 Results - Labs CBC & Chem 7: 12/19/19 14:37 12/20/19 04:58 Labs: Laboratory Last Values WBC 6.9 K/mm3 (4.5-11.0) 12/19/19 14:37 RBC 3.89 M/mm3 (3.65-5.03) 12/19/19 14:37 Hgb 12.0 gm/dl (11.8-15.2) 12/19/19 14:37 Hct 35.4 % (35.5-45.6) L 12/19/19 14:37 MCV 91 fl (84-94) 12/19/19 14:37 MCH 31 pg (28-32) 12/19/19 14:37 MCHC 34 % (32-34) 12/19/19 14:37 RDW 17.0 % (13.2-15.2) H 12/19/19 14:37 Plt Count 209 K/mm3 (140-440) 12/19/19 14:37 Lymph % (Auto) 25.0 % (13.4-35.0) 12/19/19 14:37 [place] % (Auto) 8.6 % (0.0-7.3) H 12/19/19 14:37 Eos % (Auto) 1.0 % (0.0-4.3) 12/19/19 14:37 Baso % (Auto) 0.7 % (0.0-1.8) 12/19/19 14:37 Lymph # 1.7 K/mm3 (1.2-5.4) 12/19/19 14:37 [place] # 0.6 K/mm3 (0.0-0.8) 12/19/19 14:37 Eos # 0.1 K/mm3 (0.0-0.4) 12/19/19 14:37 Baso # 0.0 K/mm3 (0.0-0.1) 12/19/19 14:37 Seg Neutrophils % 64.7 % (40.0-70.0) 12/19/19 14:37 Seg Neutrophils # 4.5 K/mm3 (1.8-7.7) 12/19/19 14:37 Sodium 140 mmol/L (137-145) 12/20/19 04:58 Potassium 3.7 mmol/L (3.6-5.0) 12/20/19 04:58 Chloride 101.7 mmol/L (98-107) 12/20/19 04:58 Carbon Dioxide 24 mmol/L (22-30) 12/20/19 04:58 Anion Gap 18 mmol/L 12/20/19 04:58 BUN 30 mg/dL (9-20) H 12/20/19 04:58 Creatinine 1.1 mg/dL (0.8-1.3) 12/20/19 04:58 Estimated GFR > 60 ml/min 12/20/19 04:58 BUN/Creatinine Ratio 27 % 12/20/19 04:58 Glucose 99 mg/dL (75-100) 12/20/19 04:58 Calcium 9.0 mg/dL (8.4-10.2) 12/20/19 04:58 Magnesium 2.20 mg/dL (1.7-2.3) 12/19/19 14:37 Total Bilirubin 0.70 mg/dL (0.1-1.2) 12/19/19 14:37 AST 38 units/L (5-40) 12/19/19 14:37 ALT 26 units/L (7-56) 12/19/19 14:37 Alkaline Phosphatase 73 units/L (35-129) 12/19/19 14:37 Troponin T 0.055 ng/mL (0.00-0.029) H D 12/19/19 22:34 NT-Pro-B Natriuret Pep 745.1 pg/mL (0-900) 12/19/19 14:37 Total Protein 7.3 g/dL (6.3-8.2) 12/19/19 14:37 Albumin 4.0 g/dL (3.9-5) 12/19/19 14:37 Albumin/Globulin Ratio 1.2 % 12/19/19 14:37 Triglycerides 58 mg/dL (2-149) 12/19/19 14:37 Cholesterol 156 mg/dL (50-199) 12/19/19 14:37 LDL Cholesterol Direct 94 mg/dL (50-130) 12/19/19 14:37 HDL Cholesterol 63 mg/dL (40-59) H 12/19/19 14:37 Cholesterol/HDL Ratio 2.47 % 12/19/19 14:37 TSH 4.180 mlU/mL (0.270-4.200) 12/19/19 14:37 Free T4 0.99 ng/dL (0.76-1.46) 12/19/19 14:37 Arias/IV: Voiding Method Toilet IV Catheter Type [Right INT / Saline Lock Antecubital] Active Medications - Current Medications Current Medications: Generic Name Dose Route Start Last Admin Trade Name Freq PRN Reason Stop Dose Admin Acetaminophen 650 mg 12/19/19 16:33 Tylenol PO Q4H PRN Pain MILD(1-3)/Fever >100.5/GEORGE Albuterol 2.5 mg 12/19/19 16:33 Proventil IH Q4H PRN Shortness Of Breath Losartan Potassium 100 mg 12/21/19 10:00 Cozaar PO QDAY [facility] Nifedipine 60 mg 12/20/19 14:00 12/20/19 18:52 Procardia Xl PO Not Given QDAY [facility] Ondansetron HCl 4 mg 12/19/19 16:33 Zofran IV Q8H PRN Nausea And Vomiting Sodium Chloride 10 ml 12/19/19 22:00 12/20/19 18:51 Sodium Chloride Flush Syringe 10 Ml IV Not Given BID OLIVIER Sodium Chloride 10 ml 12/19/19 16:33 Sodium Chloride Flush Syringe 10 Ml IV PRN PRN LINE FLUSH
[2019-12-21] MEDS: NIFEdipine XL 60 MG TAB PO SCH (10:10)
[2019-12-21] MEDS: LOSARTAN 50 MG TAB PO SCH (10:11)
--- NOTE | 2019-12-21 11:43 | Progress Note ---
Assessment and Plan - Patient Problems (1) Bradycardia Current Visit: No Status: Acute Plan to address problem: Chronic sinus bradycardia Carvedilol 6.25mg discontinued TSH normal Echocardiogram 11/2018: ejection fraction was 50%. Thallium stress test 11/2018: negative. Recommendations: Continue telemetry monitoring. Avoid AV wai blocking agents. Will obtain an EP consultation for sinus node dysfunction. Subjective Date of service: 12/21/19 Interval history: Patient is resting in bed comfortably. No cardiac complaints. Marked sinus bradycardia, heart rate currently 39 on residential monitor. Objective Vital Signs Temp Pulse Resp BP BP Pulse Ox 12/21/19 08:13 98.7 F 46 L 20 178/83 100 12/21/19 05:57 98.4 F 41 L 18 191/82 96 12/20/19 23:27 98.0 F 42 L 18 179/82 96 12/20/19 22:00 42 L 12/20/19 20:09 98.3 F 42 L 20 163/73 99 12/20/19 16:23 98.2 F 38 L 17 167/66 96 12/20/19 13:37 42 L - Physical Examination General: No Apparent Distress HEENT: Positive: PERRL Neck: Positive: trachea midline Cardiac: Positive: Bradycardia Lungs: Positive: Decreased Breath Sounds
--- NOTE | 2019-12-21 14:36 | Progress Note ---
Assessment and Plan Assessment and plan: 79 YO Male with DM, HTN, CHF, CVA, Cerebral Atherosclerosis presents to ED for evaluation. Patient states that he was in his usual state of health prior to presentation and was doing housework at his home. Patient states that he experienced a sudden onset of dizziness, lightheadedness, and generalized weakness, and diaphoresis. Patient states "I felt like I was going to pass out". EMS was notified and upon arrival the patient was found to be in distress. The patient was found to have EKG abnormalities. Patient was found to be bradycardic with a heart rate of between 30 and 32 bpm. Patient was also found to have systolic blood pressure in the 60s. Patient was treated with atropine 1 mg as well as IV fluid resuscitation therapy with improvement in symptoms. Patient subsequently transported to [facility] for further care and evaluation of the aforementioned symptoms. Patient seen and evaluated in the emergency department. Lab and imaging studies reviewed. Patient found to have clinical findings suggestive of sick sinus syndrome, as well as acute kidney injury. Patient admitted to telemetry and treated with IV fluid resuscitation therapy, as well as discontinuation of all wai blocking antihypertensive agents. External pacing pads placed in the emergency department prior to transp ort to telemetry. Cardiology team consulted in ED. 12/19. Patient's carvedilol still on hold. Cardiology following closely 12/20. Patient is still bradycardic on telemetry with heart rate in the 30s to 40s. He denies any chest pain or shortness of breath. Cardiology recommendations appreciated. Plan to get EP evaluation. Discussed with patient's daughter [Tiffani jansen [phone]] today at 3 PM. (1) Sick sinus syndrome Current Visit: Yes Status: Acute Plan to address problem: Patient was taken carvedilol at home and this has been held Cardiology following. Plan for EP evaluation. (2) Acute kidney injury (PILAR) with acute tubular necrosis (ATN) Current Visit: Yes Status: Acute Plan to address problem: IV fluid resuscitation therapy, BMP, repeat BMP in a.m. Monitor urine output every shift (3) Hypertension Current Visit: Yes Status: Acute Qualifiers: Hypertension type: essential hypertension Qualified Code(s): I10 - Essential (primary) hypertension Plan to address problem: Monitor blood pressure every shift. Continue medical management. (4) DVT prophylaxis Current Visit: No Status: Acute Plan to address problem: SCD to bilateral lower extremities while in bed, patient is ambulatory (5) Advance care planning Current Visit: Yes Status: Acute Plan to address problem: Disease education conducted, patient is full code, patient prognosis discussed, patient acknowledges understanding and agreement with care plan, +30 minutes. History Interval history: See assessment and plan Hospitalist Physical - Constitutional Vitals: Temp Pulse Resp BP Pulse Ox 98.0 F 40 L 20 158/78 100 12/21/19 11:32 12/21/19 11:32 12/21/19 11:32 12/21/19 11:32 12/21/19 11:32 General appearance: Present: no acute distress - Respiratory Respiratory: bilateral: CTA - Cardiovascular Rhythm: regular Heart Sounds: Present: S1 & S2 (Bradycardia) - Abdominal General gastrointestinal: soft, non-tender, non-distended, normal bowel sounds - Psychiatric Psychiatric: appropriate mood/affect - Neurologic Neurologic: CNII-XII intact HEART Score - HEART Score Troponin: Troponin T 0.055 ng/mL (0.00-0.029) H D 12/19/19 22:34 Results - Labs CBC & Chem 7: 12/19/19 14:37 12/20/19 04:58 Labs: Laboratory Last Values WBC 6.9 K/mm3 (4.5-11.0) 12/19/19 14:37 RBC 3.89 M/mm3 (3.65-5.03) 12/19/19 14:37 Hgb 12.0 gm/dl (11.8-15.2) 12/19/19 14:37 Hct 35.4 % (35.5-45.6) L 12/19/19 14:37 MCV 91 fl (84-94) 12/19/19 14:37 MCH 31 pg (28-32) 12/19/19 14:37 MCHC 34 % (32-34) 12/19/19 14:37 RDW 17.0 % (13.2-15.2) H 12/19/19 14:37 Plt Count 209 K/mm3 (140-440) 12/19/19 14:37 Lymph % (Auto) 25.0 % (13.4-35.0) 12/19/19 14:37 [place] % (Auto) 8.6 % (0.0-7.3) H 12/19/19 14:37 Eos % (Auto) 1.0 % (0.0-4.3) 12/19/19 14:37 Baso % (Auto) 0.7 % (0.0-1.8) 12/19/19 14:37 Lymph # 1.7 K/mm3 (1.2-5.4) 12/19/19 14:37 [place] # 0.6 K/mm3 (0.0-0.8) 12/19/19 14:37 Eos # 0.1 K/mm3 (0.0-0.4) 12/19/19 14:37 Baso # 0.0 K/mm3 (0.0-0.1) 12/19/19 14:37 Seg Neutrophils % 64.7 % (40.0-70.0) 12/19/19 14:37 Seg Neutrophils # 4.5 K/mm3 (1.8-7.7) 12/19/19 14:37 Sodium 140 mmol/L (137-145) 12/20/19 04:58 Potassium 3.7 mmol/L (3.6-5.0) 12/20/19 04:58 Chloride 101.7 mmol/L (98-107) 12/20/19 04:58 Carbon Dioxide 24 mmol/L (22-30) 12/20/19 04:58 Anion Gap 18 mmol/L 12/20/19 04:58 BUN 30 mg/dL (9-20) H 12/20/19 04:58 Creatinine 1.1 mg/dL (0.8-1.3) 12/20/19 04:58 Estimated GFR > 60 ml/min 12/20/19 04:58 BUN/Creatinine Ratio 27 % 12/20/19 04:58 Glucose 99 mg/dL (75-100) 12/20/19 04:58 POC Glucose 139 (70-105) H 12/21/19 11:51 Calcium 9.0 mg/dL (8.4-10.2) 12/20/19 04:58 Magnesium 2.20 mg/dL (1.7-2.3) 12/19/19 14:37 Total Bilirubin 0.70 mg/dL (0.1-1.2) 12/19/19 14:37 AST 38 units/L (5-40) 12/19/19 14:37 ALT 26 units/L (7-56) 12/19/19 14:37 Alkaline Phosphatase 73 units/L (35-129) 12/19/19 14:37 Troponin T 0.055 ng/mL (0.00-0.029) H D 12/19/19 22:34 NT-Pro-B Natriuret Pep 745.1 pg/mL (0-900) 12/19/19 14:37 Total Protein 7.3 g/dL (6.3-8.2) 12/19/19 14:37 Albumin 4.0 g/dL (3.9-5) 12/19/19 14:37 Albumin/Globulin Ratio 1.2 % 12/19/19 14:37 Triglycerides 58 mg/dL (2-149) 12/19/19 14:37 Cholesterol 156 mg/dL (50-199) 12/19/19 14:37 LDL Cholesterol Direct 94 mg/dL (50-130) 12/19/19 14:37 HDL Cholesterol 63 mg/dL (40-59) H 12/19/19 14:37 Cholesterol/HDL Ratio 2.47 % 12/19/19 14:37 TSH 4.180 mlU/mL (0.270-4.200) 12/19/19 14:37 Free T4 0.99 ng/dL (0.76-1.46) 12/19/19 14:37 Arias/IV: Voiding Method Toilet IV Catheter Type [Right INT / Saline Lock Antecubital] Active Medications - Current Medications Current Medications: Generic Name Dose Route Start Last Admin Trade Name Freq PRN Reason Stop Dose Admin Acetaminophen 650 mg 12/19/19 16:33 Tylenol PO Q4H PRN Pain MILD(1-3)/Fever >100.5/GEORGE Albuterol 2.5 mg 12/19/19 16:33 Proventil IH Q4H PRN Shortness Of Breath Losartan Potassium 100 mg 12/21/19 10:00 12/21/19 10:11 Cozaar PO 100 mg QDAY OLIVIER Administration Nifedipine 60 mg 12/20/19 14:00 12/21/19 10:10 Procardia Xl PO 60 mg QDAY OLIVIER Administration Ondansetron HCl 4 mg 12/19/19 16:33 Zofran IV Q8H PRN Nausea And Vomiting Sodium Chloride 10 ml 12/19/19 22:00 12/20/19 18:51 Sodium Chloride Flush Syringe 10 Ml IV Not Given BID OLIVIER Sodium Chloride 10 ml 12/19/19 16:33 Sodium Chloride Flush Syringe 10 Ml IV PRN PRN LINE FLUSH
[2019-12-22] MEDS ORDERED: cloNIDine 0.2 MG TAB PO ONE (01:00)
[2019-12-22 09:10] VITALS: BP 135/67
--- NOTE | 2019-12-22 09:22 | Progress Note ---
Assessment and Plan - Patient Problems (1) Bradycardia Current Visit: No Status: Acute Plan to address problem: Chronic sinus bradycardia Carvedilol 6.25mg discontinued TSH normal Echocardiogram 11/2018: ejection fraction was 50%. Thallium stress test 11/2018: negative. No urgent indication for Pacemaker implant Recommendations: Continue telemetry monitoring. Avoid AV wai blocking agents. As an outpatient, will recommend extended event monitor and an exercise treadmill test. Stable for discharge today. Patient will follow up in our office 12/[address] Golden. Subjective Date of service: 12/22/19 Interval history: Patient is resting in bed comfortably. Sinus bradycardia, heart rate ranging in the 40s. Patient remains asymptomatic. Objective Vital Signs Temp Pulse Resp BP BP Pulse Ox 12/22/19 08:59 97.9 F 39 L 16 135/67 100 12/22/19 03:41 97.6 F 42 L 16 163/79 94 12/22/19 00:52 39 L 181/82 12/21/19 23:53 98.3 F 39 L 18 181/82 97 12/21/19 23:34 98.3 F 45 L 18 206/77 95 12/21/19 22:00 39 L 12/21/19 19:11 97.5 F L 43 L 18 160/65 99 12/21/19 15:42 97.6 F 41 L 20 152/74 100 12/21/19 13:00 97 12/21/19 11:32 98.0 F 40 L 20 158/78 100 12/21/19 10:00 38 L - Physical Examination General: No Apparent Distress HEENT: Positive: PERRL Neck: Positive: trachea midline Cardiac: Positive: Bradycardia Lungs: Positive: Decreased Breath Sounds
--- NOTE | 2019-12-22 10:12 | Discharge Summary ---
Providers - Providers Date of Admission: 12/19/19 18:17 Date of discharge: 12/22/19 Attending physician: GERALD COULTER 12/19/19 Consult to Cardiac Rehabilitation [CONS] Routine Reason For Exam: Phase I 12/19/19 16:03 Consult to Physician [CONS] Urgent Comment: Consulting Provider: EDIL BRISENO Physician Instructions: Reason For Exam: symptomatic bradycardia Primary care physician: [facility], Hospitalization Condition: Stable Hospital course: 79 YO Male with DM, HTN, CHF, CVA, Cerebral Atherosclerosis presents to ED for evaluation. Patient states that he was in his usual state of health prior to presentation and was doing housework at his home. Patient states that he experienced a sudden onset of dizziness, lightheadedness, and generalized weakness, and diaphoresis. Patient states "I felt like I was going to pass out". EMS was notified and upon arrival the patient was found to be in distr ess. The patient was found to have EKG abnormalities. Patient was found to be bradycardic with a heart rate of between 30 and 32 bpm. Patient was also found to have systolic blood pressure in the 60s. Patient was treated with atropine 1 mg as well as IV fluid resuscitation therapy with improvement in symptoms. Patient subsequently transported to [facility] for further care and evaluation of the aforementioned symptoms. Patient seen and evaluated in the emergency department. Lab and imaging studies reviewed. Patient found to have clinical findings suggestive of sick sinus syndrome, as well as acute kidney injury. Patient admitted to telemetry and treated with IV fluid resuscitation therapy, as well as discontinuation of all wai blocking antihypertensive agents. External pacing pads placed in the emergency department prior to transport to telemetry. Cardiology team consulted in ED. 12/19. Patient's carvedilol still on hold. Cardiology following closely 12/20. Patient is still bradycardic on telemetry with heart rate in the 30s to 40s. He denies any chest pain or shortness of breath. Cardiology recommendations appreciated. Plan to get EP evaluation. Discussed with cayetano kaye's daughter [Tiffani on [phone]] today at 3 PM. 12/21. Patient ahs been seen by EP. No acute intervention at this time. He will see cardiology in the office next week. Plans discussed with patient and daughter Tiffani. He will continue to hold coreg. He is stable to be discharged Disposition: DC-30 STILL A PATIENT Time spent for discharge: More than 30 mins - Discharge Diagnoses (1) Bradycardia Status: Acute Core Measure Documentation - Palliative Care Palliative Care/ Comfort Measures: Not Applicable - Core Measures Any of the following diagnoses?: none Exam - Constitutional Vitals: Temp Pulse Resp BP Pulse Ox 97.9 F 39 L 16 135/67 100 12/22/19 08:59 12/22/19 08:59 12/22/19 08:59 12/22/19 08:59 12/22/19 08:59 General appearance: Present: no acute distress, well-nourished - EENT Eyes: Present: PERRL ENT: hearing intact, clear oral mucosa - Neck Neck: Present: supple, normal ROM - Respiratory Respiratory effort: normal Respiratory: bilateral: CTA - Cardiovascular Heart Sounds: Present: S1 & S2. Absent: rub, click - Extremities Extremities: pulses symmetrical, No edema Peripheral Pulses: within normal limits - Abdominal General gastrointestinal: Present: soft, non-tender, non-distended, normal bowel sounds Male genitourinary: Present: normal - Integumentary Integumentary: Present: clear, warm, dry - Musculoskeletal Musculoskeletal: gait normal, strength equal bilaterally - Psychiatric Psychiatric: appropriate mood/affect, intact judgment & insight - Neurologic Neurologic: CNII-XII intact, moves all extremities Plan Additional Instructions: Take medications as prescribed. Stop carvedilol (Coreg). Follow up with cardiology next week Follow up with: FINA HARRINGTON MD [Staff Physician] - 7 Days [place] MARTIN ADAMSON MD [Primary Care Provider] - 7 Days Prescriptions: Losartan [Cozaar] 100 mg PO QDAY #60 tablet NIFEdipine XL [Procardia Xl] 60 mg PO QDAY #30 tablet
[2019-12-22] MEDS: LOSARTAN 50 MG TAB PO SCH (10:54)
[2019-12-22] MEDS: NIFEdipine XL 60 MG TAB PO SCH (10:54)
== END 2019-12-22 14:13 | disposition home or self-care (01) | DRG 308 ==
LOC: ED 14:16 → 4A 18:17
PROVIDERS: ADMIT Internal Medicine; ATTEND Internal Medicine
DX: I49.5 Sick sinus syndrome (principal); N17.0 Acute kidney failure with tubular necrosis; I11.0 Hypertensive heart disease with heart failure; I50.9 Heart failure, unspecified; E11.9 Type 2 diabetes mellitus without complications; I67.2 Cerebral atherosclerosis; Z86.73 Personal history of transient ischemic attack (TIA), and cerebral infarction without residual deficits; Z82.49 Family history of ischemic heart disease and other diseases of the circulatory system; Z88.8 Allergy status to other drugs, medicaments and biological substances; E78.5 Hyperlipidemia, unspecified; N40.0 Benign prostatic hyperplasia without lower urinary tract symptoms; D64.9 Anemia, unspecified
CPT/HCPCS: 36415; 71045; 80048; 80053; 80061; 82962; 83735; 83880; 84439; 84443; 84484; 85025; 93005; 94760; G0378

== ENCOUNTER 2021-04-17 20:49 | Emergency (ER) | payer MEDICARE ==
[2021-04-17] MEDS ORDERED: cloNIDine 0.1 MG TAB PO ONE (22:41)
--- NOTE | 2021-04-17 22:42 | Emergency Department Report ---
ED General Adult HPI - General Chief complaint: High BP Stated complaint: HYPERTENSION Time Seen by Provider: 04/17/21 22:35 Source: patient, EMS - History of Present Illness Initial comments: Patient is 81 years old male with history of hypertension. Patient brought to the emergency room via EMS from home for evaluation of elevated blood pressure. Patient stated that he checked his blood pressure and it read 230/100. Patient denied any symptoms. He denied any headache, neck pain, chest pain, shortness of breath, weakness numbness or tingling sensation. Upon arrival to the ER blood pressure rechecked again and it was 170/90. - Related Data Home Medications Medication Instructions Recorded Confirmed Last Taken Ferrous Sulfate 324 MG 325 mg PO TID 12/20/18 12/19/19 01/21/19 Furosemide [Lasix TAB] 40 mg PO QDAY 12/19/19 12/19/19 Unknown Oxybutynin [Ditropan] 5 mg PO BID 12/19/19 12/19/19 Unknown Previous Rx's Medication Instructions Recorded Last Taken Type AtorvaSTATin [Lipitor] 40 mg PO QHS #30 tablet 12/25/18 01/21/19 Rx Finasteride [Proscar] 5 mg PO DAILY #30 02/07/19 Unknown Rx Losartan [Cozaar] 100 mg PO QDAY #60 tablet 12/22/19 Unknown Rx NIFEdipine XL [Procardia Xl] 60 mg PO QDAY #30 tablet 12/22/19 Unknown Rx Allergies Allergy/AdvReac Type Severity Reaction Status Date / Time lisinopril Allergy Hives Verified 04/18/21 00:11 ED Review of Systems ROS: Stated complaint: HYPERTENSION Other details as noted in HPI Comment: All other systems reviewed and negative Constitutional: denies: chills, fever Respiratory: denies: cough, shortness of breath, SOB with exertion Cardiovascular: denies: chest pain Gastrointestinal: denies: abdominal pain, nausea, vomiting, diarrhea, constipation, hematemesis, melena, hematochezia Musculoskeletal: denies: back pain Neurological: denies: headache, weakness, numbness, paresthesias, confusion ED Past Medical Hx - Past Medical History Hx Hypertension: Yes Hx Congestive Heart Failure: Yes Hx Diabetes: Yes (diet controlled) Hx Asthma: No Hx COPD: No Additional medical history: Anemia, chronic right leg - Social History Smoking Status: Never Smoker - Medications Home Medications: Home Medications Medication Instructions Recorded Confirmed Last Taken Type Ferrous Sulfate 324 MG 325 mg PO TID 12/20/18 12/19/19 01/21/19 History AtorvaSTATin [Lipitor] 40 mg PO QHS #30 tablet 12/25/18 12/19/19 01/21/19 Rx Finasteride [Proscar] 5 mg PO DAILY #30 02/07/19 12/19/19 Unknown Rx Furosemide [Lasix TAB] 40 mg PO QDAY 12/19/19 12/19/19 Unknown History Oxybutynin [Ditropan] 5 mg PO BID 12/19/19 12/19/19 Unknown History Losartan [Cozaar] 100 mg PO QDAY #60 tablet 12/22/19 Unknown Rx NIFEdipine XL [Procardia Xl] 60 mg PO QDAY #30 tablet 12/22/19 Unknown Rx ED Physical Exam - General General appearance: alert, in no apparent distress - Head Head exam: Present: atraumatic, normocephalic, normal inspection - Eye Eye exam: Present: normal appearance - ENT ENT exam: Present: normal exam, normal orophraynx, mucous membranes moist - Neck Neck exam: Present: normal inspection, full ROM. Absent: tenderness, meningismus - Respiratory Respiratory exam: Present: normal lung sounds bilaterally - Cardiovascular Cardiovascular Exam: Present: regular rate, normal rhythm, normal heart sounds - GI/Abdominal GI/Abdominal exam: Present: soft, normal bowel sounds. Absent: distended, tenderness, guarding, rebound, rigid, mass, bruit, pulsatile mass, hernia - Extremities Exam Extremities exam: Present: normal inspection, full ROM, normal capillary refill. Absent: tenderness - Back Exam Back exam: Present: normal inspection, full ROM. Absent: CVA tenderness (R), CVA tenderness (L) - Neurological Exam Neurological exam: Present: alert, oriented X3, CN II-XII intact, normal gait, reflexes normal. Absent: motor sensory deficit - Psychiatric Psychiatric exam: Present: normal mood - Skin Skin exam: Present: warm, intact, normal color ED Course Vital Signs 04/17/21 04/17/21 04/18/21 23:40 23:46 00:00 Temperature Pulse Rate 63 53 L Respiratory 17 12 Rate Blood Pressure 174/87 170/82 Blood Pressure [Left] O2 Sat by Pulse 97 98 97 Oximetry 04/18/21 04/18/2121 00:07 00:16 00:30 Temperature 98.9 F Pulse Rate 55 L 53 L 49 L Respiratory 18 21 18 Rate Blood Pressure 170/82 170/82 Blood Pressure 170/82 [Left] O2 Sat by Pulse 97 97 96 Oximetry 04/18/21 04/18/21 00:46 01:00 Temperature Pulse Rate 43 L 53 L Respiratory 18 18 Rate Blood Pressure 170/82 147/72 Blood Pressure [Left] O2 Sat by Pulse 96 98 Oximetry ED Medical Decision Making - Lab Data Result diagrams: 04/17/21 22:56 04/17/21 22:56 - Medical Decision Making Patient is 81 years old male with history of hypertension. Patient brought to the emergency room via EMS from home for evaluation of elevated blood pressure. Patient stated that he checked his blood pressure and it read 230/100. Patient denied any symptoms. He denied any headache, neck pain, chest pain, shortness of breath, weakness numbness or tingling sensation. Upon arrival to the ER blood pressure rechecked again and it was 170/90. Patient remained stable. Patient received clonidine 0.0 mg his blood pressure now is 147/72. Patient remained asymptomatic in the ER. Patient advised to follow-up with his primary doctor in the next 2 to 3 days and to return to the ER if he develop any symptoms. Critical care attestation.: If time is entered above; I have spent that time in minutes in the direct care of this critically ill patient, excluding procedure time. ED Disposition Clinical Impression: Malignant hypertension Disposition: HOME / SELF CARE / HOMELESS Is pt being admited?: No Condition: Stable Instructions: Hypertension (ED), Hypertension, Adult Referrals: PRIMARY CARE, [Primary Care Provider] - 3-5 Days
[2021-04-17 23:33] LABS: BUN/Creatinine Ratio 19; Blood Urea Nitrogen 19 mg/dL (9-20); Calcium 9.1 mg/dL (8.4-10.2); Hemolysis Index 3
[2021-04-17 23:58] LABS: Bilirubin,Urine NEG (Negative); Blood,Urine NEG (Negative); Color,Urine Straw (Yellow); Mucus,Urine FEW /HPF; Protein,Urine >500 mg/dL (Negative); RBC,Urine < 1.0 /HPF (0.0-6.0); Urobilinogen,Urine < 2.0 mg/dL (<2.0)
[2021-04-17 23:59] LABS: Basophils % (Auto) 0.6 % (0.0-1.8); Eosinophils # (Auto) 0.1 K/mm3 (0.0-0.4); Eosinophils % (Auto) 1.6 % (0.0-4.3); Hematocrit 38.9 % (35.5-45.6); Hemoglobin 12.1 gm/dl (11.8-15.2); Lymphocytes # (Auto) 1.6 K/mm3 (1.2-5.4); Mean Corpuscular HGB Conc 31 % (32-34); Mean Corpuscular Volume 90 fl (84-94); Monocytes # (Auto) 0.5 K/mm3 (0.0-0.8); Monocytes % (Auto) 8.4 % (0.0-7.3); Platelet Count 218 K/mm3 (140-440); Red Blood Count 4.32 M/mm3 (3.65-5.03); Red Cell Distribution Width 17.6 % (13.2-15.2)
[2021-04-18 02:51] VITALS: BP 128/69
== END 2021-04-18 03:06 | disposition home or self-care (01) ==
LOC: ED 20:49
DX: I11.0 Hypertensive heart disease with heart failure (principal); I50.9 Heart failure, unspecified; E11.9 Type 2 diabetes mellitus without complications; Z88.8 Allergy status to other drugs, medicaments and biological substances; Z79.899 Other long term (current) drug therapy
CPT/HCPCS: 36415; 80048; 81001; 85025; 99283